=== PATIENT | female | born 1940 | race Caucasian/White ===

== ENCOUNTER → 2016-08-10 | Outpatient (CLI) | payer MEDICARE ==
[2016-08-10 11:24] LABS: Basophils # (A) 0.1 k/uL (0-0.2); Basophils % (A) 1 %; CH 30.8; CHCM 32.8; Eosinophils # (A) 0.3 k/uL (0-0.7); Eosinophils % (A) 4 %; HCT 39.9 % (34.0-46.0); HDW 2.24; HGB 12.6 gm/dL (11.4-16.0); Luc # (Auto) 0.31; Luc % (Auto) 4; Lymphocytes # (A) 2.7 k/uL (1.0-4.8); Lymphocytes % (A) 32 %; MCH 29.7 pg (25.0-35.0); MCHC 31.6 g/dL (31.0-37.0); MCV 94.2 fL (80.0-100.0); Mean Platelet Volume 7.6; Monocytes # (A) 0.7 k/uL (0-1.0); Monocytes % (A) 8 %; Neutrophils # (A) 4.5 k/uL (1.3-7.7); Neutrophils % (A) 53 %; RBC 4.24 m/uL (3.80-5.40); RDW 12.3 % (11.5-15.5); WBC 8.6 k/uL (3.8-10.6); WBC (Perox) 9.25
[2016-08-10 11:52] LABS: ALT 24 U/L (9-52); AST 28 U/L (14-36); Alkaline Phosphatase 87 U/L (38-126); Anion Gap 11 mmol/L; Blood Urea Nitrogen 28 mg/dL (7-17); Calcium 9.7 mg/dL (8.4-10.2); Carbon Dioxide 31 mmol/L (22-30); Chloride 101 mmol/L (98-107); Cholesterol 213 mg/dL (<200); Glucose 108 mg/dL (74-99); HDL Cholesterol 61 mg/dL (40-60); Non-African American GFR(MDRD) 59 (>60 ml/min/1.73 sqM); Sodium 143 mmol/L (137-145); Total Bilirubin 0.7 mg/dL (0.2-1.3); Total Protein 7.3 g/dL (6.3-8.2); Triglycerides 302 mg/dL (<150)
== END ==
LOC: LABWHC1 10:54
PROVIDERS: ATTEND Family Medicine
DX: I10 Essential (primary) hypertension (principal)
CPT/HCPCS: 36415; 80053; 80061; 84439; 84443; 85025

== ENCOUNTER → 2016-08-10 | Outpatient (CLI) | payer MEDICARE ==
--- NOTE | 2016-08-10 11:59 | XR ---
EXAMINATION TYPE: XR ankle complete LT DATE OF EXAM: 08/10/2016 11:55 AM COMPARISON: NONE HISTORY: Pain FINDINGS: Three views of the ankle demonstrate the ankle mortise to be intact and symmetric. The joint spaces are preserved. There is calcific matrix within the distal diaphysis of the tibia likely related to b one infarct. Slight cortical irregularity along the lateral margin of the distal fibula suspicious fo r hairline fracture. Calcaneal spur and diffuse osteopenia noted. IMPRESSION: 1. Findings are suspicious for a subacute fracture hairline distal diaphysis fibula. Correlate clinic ally with point tenderness. Lateral view suggests probable early sclerosis and healing fracture. 2. Bone infarct distal tibia appears chronic. A Yellow message has been communicated to Marshall Canseco DO via the [employer] Reminder system on 08/10/2016 11:56 AM, Message ID [id number].
== END | disposition home or self-care (01) ==
LOC: RADXRMAIN 11:33
PROVIDERS: ATTEND Family Medicine
DX: M87.9 Osteonecrosis, unspecified (principal)

== ENCOUNTER → 2016-08-31 | Outpatient (CLI) | payer MEDICARE ==
--- NOTE | 2016-08-31 13:34 | XR ---
EXAMINATION TYPE: XR chest 2V DATE OF EXAM: 08/31/2016 1:29 PM COMPARISON: 11/01/2010 HISTORY: 76-year-old female circulatory and respiratory symptoms, respiratory crackles. TECHNIQUE: Frontal and lateral views FINDINGS: Heart is normal size. Aorta and pulmonary vasculature within normal limits. Mild diffuse interstitial prominence not significantly changed. Strandy atelectasis in the lower lungs. IMPRESSION: Chronic changes without acute cardiopulmonary process.
== END | disposition home or self-care (01) ==
LOC: RADXRMAIN 13:18
PROVIDERS: ATTEND Family Medicine
DX: R09.89 Other specified symptoms and signs involving the circulatory and respiratory systems (principal)
CPT/HCPCS: 71020

== ENCOUNTER → 2016-09-18 | Outpatient (CLI) | payer MEDICARE ==
--- NOTE | 2016-09-18 15:01 | XR ---
EXAMINATION TYPE: XR ankle complete LT DATE OF EXAM: 09/18/2016 2:40 PM COMPARISON: 08/10/2016 HISTORY: 76-year-old female unspecified fracture of left fibular shaft, follow-up injury TECHNIQUE: 3 views FINDINGS: Redemonstrated fracture site at the distal fibular shaft. There is a prominent periosteal callus seen laterally and to a lesser degree posteriorly. The fracture lucency itself is no longer well seen but healing appears incomplete at this time. Ankle mortise appears congruent. Talar dome is intact. The heterogeneous lesion within the distal tibial intramedullary space spans 3.9 cm, similar to prior . No apparent endosteal scalloping. IMPRESSION: 1. Progressive healing of the nondisplaced distal fibular shaft fracture. There is prominent perioste al and endosteal callus but healing remains incomplete, possibly secondary to continued motion at the fracture site. Clinically correlate. 2. Lesion within the intramedullary space of the distal tibial shaft could represent a bone infarct o r chondroid lesion such as enchondroma.
== END | disposition home or self-care (01) ==
LOC: RADXRMAIN 14:11
PROVIDERS: ATTEND Family Medicine
DX: S82.402D Unspecified fracture of shaft of left fibula, subsequent encounter for closed fracture with routine healing (principal); M89.9 Disorder of bone, unspecified; X58.XXXD Exposure to other specified factors, subsequent encounter

== ENCOUNTER 2016-09-19 10:47 | Day surgery (SDC) | payer MEDICARE ==
[2016-09-17 16:56] VITALS: BMI 27.6
[~2016-09-19 10:47] MED LIST: ALPRAZolam 0.25 MG TAB PO PRN; ALPRAZolam 0.5 MG TAB PO PRN; NITROGLYCERIN SL TABS 0.4 MG TAB SUBLINGUAL PRN; SODIUM CHLORIDE 0.9% 1,000 ML in EMPTY BAG 1 BAG IV ONE
[2016-09-19] MEDS ORDERED: ASPIRIN 325 MG TAB ONE (11:07)
[2016-09-19 11:19] VITALS: RESP 16; TEMP 97.6
[2016-09-19 11:26] LABS: Basophils # (A) 0.1 k/uL (0-0.2); Basophils % (A) 1 %; CH 30.8; CHCM 33.1; Eosinophils # (A) 0.6 k/uL (0-0.7); Eosinophils % (A) 5 %; HCT 40.1 % (34.0-46.0); HDW 2.37; Luc # (Auto) 0.38; Luc % (Auto) 3; Lymphocytes # (A) 2.8 k/uL (1.0-4.8); Lymphocytes % (A) 24 %; MCH 30.3 pg (25.0-35.0); MCHC 32.4 g/dL (31.0-37.0); MCV 93.4 fL (80.0-100.0); Mean Platelet Volume 7.3; Monocytes # (A) 0.9 k/uL (0-1.0); Monocytes % (A) 8 %; Neutrophils # (A) 6.7 k/uL (1.3-7.7); Neutrophils % (A) 60 %; RDW 12.1 % (11.5-15.5); WBC 11.3 k/uL (3.8-10.6); WBC (Perox) 11.46
[2016-09-19 11:42] LABS: Anion Gap 9 mmol/L; Blood Urea Nitrogen 23 mg/dL (7-17); Calcium 9.4 mg/dL (8.4-10.2); Carbon Dioxide 30 mmol/L (22-30); Chloride 101 mmol/L (98-107); Glucose 104 mg/dL (74-99); Non-African American GFR(MDRD) >60 (>60 ml/min/1.73 sqM); Sodium 140 mmol/L (137-145)
[2016-09-19 11:43] LABS: Potassium 4.4 mmol/L (3.5-5.1)
[2016-09-19] MEDS ORDERED: fentaNYL (PF) 50 MCG/ML 2 ML AMP ONE (11:52)
[2016-09-19] MEDS ORDERED: diphenhydrAMINE 50 MG/ML 1 ML VIAL ONE (11:52)
[2016-09-19] MEDS ORDERED: LIDOCAINE 2% INJ 20 MG/ML (20 ML MDV) ONE (11:52)
[2016-09-19] MEDS ORDERED: HEPARIN SODIUM 1,000 UNIT/ML VIAL ONE (11:53)
[2016-09-19] MEDS ORDERED: VERAPAMIL 2.5 MG/ML 2 ML AMP ONE (11:53)
[2016-09-19] MEDS ORDERED: diphenhydrAMINE 50 MG/ML 1 ML VIAL IVP ONE (12:39)
[2016-09-19] MEDS ORDERED: fentaNYL (PF) 50 MCG/ML 2 ML AMP IV ONE (12:39)
[2016-09-19] MEDS ORDERED: MIDAZOLAM 2 MG/2 ML VIAL ONE (12:45)
[2016-09-19] MEDS ORDERED: MIDAZOLAM 2 MG/2 ML VIAL IV ONE (12:47)
[2016-09-19] MEDS ORDERED: LIDOCAINE 2% INJ 20 MG/ML SQ ONE (12:47)
[2016-09-19] MEDS ORDERED: VERAPAMIL SYRINGE (5 MG/10 ML) INTRAARTER ONE ×2 (12:48→12:58)
[2016-09-19] MEDS ORDERED: IOHEXOL 350 MG/ML 125ML BOTTLE INJ ONE (13:03)
[2016-09-19] MEDS ORDERED: RX INFO: IV CONTRAST WAS GIVEN 1 EACH MISC MISCELLANE PRN (13:15)
[2016-09-19] MEDS ORDERED: SODIUM CHLORIDE 0.9% 1,000 ML IV SCH (13:15)
[2016-09-19] MEDS ORDERED: ACETAMINOPHEN TAB 500 MG TAB PO PRN (13:18)
[2016-09-19 16:24] VITALS: BP 111/55; PULSE 62
[2016-09-19] MEDS ORDERED: NON-FORMULARY DRUG (Atenolol/Chlorthalidone [Atenolol-Chlorthalidone 50-25] 1 TAB) PO SCH (17:00)
[2016-09-19] MEDS ORDERED: EZETIMIBE 10 MG TAB PO SCH (17:00)
--- NOTE | 2016-09-19 22:46 | CC ---
Mrs. Choi is a 76-year-old female with a known history of hypertension, hyperlipidemia, history of peripheral vascular disease, who has been scheduled to undergo right total knee arthroplasty, was found to have an abnormal stress test with apical ischemia. In view of that, recommendation was made regarding cardiac catheterization. The procedure as well as risks and complications were discussed with the patient, who is in full understanding agreement. PROCEDURE: Patient was brought to the cath in fasting semi-sedated state after receiving fentanyl and Benadryl and achieving moderate conscious sedated state. Using Xylocaine anesthesia and Seldinger technique, a 6 Ghanaian sheath was introduced in the right radial artery. Selective right and left coronary angiography performed using 5 Ghanaian 3-1/2 Bend right and left Ellie catheters. Multiple views taken of the coronary arteries, including hemiaxial views, were obtained. Following that, a 5 Ghanaian tight pigtail catheter was used in the left ventricle and a 30-degree STARKS view of the left ventricle was obtained from that. Catheter and sheaths were removed. Hemostasis was obtained with deployment of TR band. There were no immediate complications. Patient was returned to her room in stable condition. Of note, the patient received 3500 units of intravenous heparin as well as intra-arterial verapamil. FINDINGS: 1. Fluoroscopy: There is severe calcification involving all the coronary arteries. 2. Coronaries. a. Left main: This is a large-size vessel bifurcating into left circumflex, left anterior descending artery, left main coronary artery, is without any obstructive coronary artery disease. b. Left anterior descending artery. This is a large-size vessel reaching toward the apex with a wraparound apex segment, giving rise to a moderately size diagonal branch in mid segment. The left anterior descending artery in mid segment has intimal disease of 30% without any evidence of high-grade stenosis. c. Left circumflex: This is a nondominant vessel, large in caliber, giving rise to a large obtuse marginal branch. The left circumflex has mild intimal disease proximally of 10% to 20% without any evidence of high-grade stenosis. d. Right coronary artery: This is a dominant vessel, giving rise distally to a large PLV and a small PDA. The right coronary artery is heavily calcified and the mid segment has a plaque of 40% to 50%. The rest of the vessel has no has stenosis. 3. Left ventriculogram: Left ventriculogram was performed in 30-degree STARKS view and revealed normal left ventricular size and systolic function. Ejection fraction was 60%. CONCLUSION: 1. Calcified coronary arteries. 2. Mild to moderate triple vessel disease. 3. Normal left ventricular size and systolic function. RECOMMENDATIONS: In view of findings and anatomy, I have recommended continued medical therapy with aggressive risk factor modification, which has been initiated. Those findings and recommendations were discussed with the patient and her family and they are in full understanding and agreement. Duration of the procedure is 25 minutes. GRIFFIND
--- NOTE | 2016-09-19 22:48 | LTR ---
September 19, 2016 RE: Ileana Choi Dear Dr. Canseco: I had the pleasure to perform cardiac catheterization on Mrs. Choi at [facility] on the 19 of September and a full copy of the procedure note will be forwarded to you. In brief, she was found to have calcified coronary arteries with mild to moderate triple vessel coronary artery disease and based on those findings, I have recommended continued medical therapy with aggressive risk factor modification initiated. Thank you again for allowing me to participate in her care. Please feel free to call for any questions. Sincerely yours, JESSICA PAVON MD
[2016-09-20] MEDS ORDERED: NON-FORMULARY DRUG (Omeprazole 20 MG) PO SCH (09:00)
[2016-09-20] MEDS ORDERED: NIACIN 500 MG PO SCH (09:00)
[2016-09-20] MEDS ORDERED: ASPIRIN 81 MG CHEW PO SCH (09:00)
[2016-09-20] MEDS ORDERED: POTASSIUM CHLORIDE ER 10 MEQ TAB.ER.PRT PO SCH (09:00)
== END 2016-09-19 18:25 | disposition home or self-care (01) ==
LOC: CATHCVL 10:47
PROVIDERS: ATTEND Internal Medicine Interventional Cardiology
DX: I25.10 Atherosclerotic heart disease of native coronary artery without angina pectoris (principal); I25.84 Coronary atherosclerosis due to calcified coronary lesion; Z01.810 Encounter for preprocedural cardiovascular examination; I10 Essential (primary) hypertension; E78.5 Hyperlipidemia, unspecified; Z98.890 Other specified postprocedural states; Z79.82 Long term (current) use of aspirin; Z79.899 Other long term (current) drug therapy; Z88.8 Allergy status to other drugs, medicaments and biological substances
CPT/HCPCS: 93458; 80048; 85025; C1894; C1769; J2001; J2250; J1200; J3010; J1644; Q9967

== ENCOUNTER → 2017-01-25 | Outpatient (CLI) | payer MEDICARE ==
[2017-01-25 10:14] LABS: ALT 33 U/L (9-52); AST 28 U/L (14-36); Cholesterol 167 mg/dL (<200); HDL Cholesterol 57 mg/dL (40-60)
== END | disposition home or self-care (01) ==
LOC: LABWHC1 09:23
PROVIDERS: ATTEND Internal Medicine Interventional Cardiology
DX: E78.2 Mixed hyperlipidemia (principal)
CPT/HCPCS: 36415; 80061; 84450; 84460

== ENCOUNTER → 2017-02-11 | Outpatient (CLI) | payer MEDICARE ==
--- NOTE | 2017-02-12 08:55 | MM ---
Reason for exam: screening (asymptomatic). Last mammogram was performed 1 year ago. History: Patient is postmenopausal. Family history of breast cancer in sister at age 45. Took estrogen for 10 years. Took progesterone for 10 years. Physical Findings: A clinical breast exam by your physician is recommended on an annual basis and results should be correlated with mammographic findings. MG 3D Screening Mammo W/Cad Bilateral CC and MLO view(s) were taken. Prior study comparison: February 10, 2016, bilateral MG 3d screening mammo w/cad. September 16, 2014, bilateral MG screening mammo w CAD. There are scattered fibroglandular densities. Finding #1: There is a 6 mm mass in the left breast. Finding #2: There are typically benign calcifications in both breasts. ASSESSMENT: Incomplete: need additional imaging evaluation, BI-RAD 0 RECOMMENDATION: Special view mammogram of the left breast. If lesion persists on supplemental views, image directed ultrasound is recommended. [facility] will attempt to contact patient to return for supplemental views and ultrasound if indicated.
== END | disposition home or self-care (01) ==
LOC: RADMAMWWP 11:01
PROVIDERS: ATTEND Family Medicine
DX: Z12.31 Encounter for screening mammogram for malignant neoplasm of breast (principal)
CPT/HCPCS: 77063; G0202

== ENCOUNTER → 2017-02-21 | Outpatient (CLI) | payer MEDICARE ==
--- NOTE | 2017-02-21 09:58 | MM ---
Reason for exam: additional evaluation requested from abnormal screening. Last mammogram was performed less than 1 month ago. History: Patient is postmenopausal and history of other cancer. Family history of breast cancer in sister at age 45. Took estrogen for 10 years. Took progesterone for 10 years. Physical Findings: Nurse did not find any significant physical abnormalities on exam. MG 3D Work Up W/Cad LT LM and spot compression MLO view(s) were taken of the left breast. Prior study comparison: February 11, 2017, bilateral MG 3d screening mammo w/cad. February 10, 2016, bilateral MG 3d screening mammo w/cad. Nodular density does not persists. 6 month follow up recommended. These results were verbally communicated with the patient and result sheet given to the patient on 02/21/17. ASSESSMENT: Probably benign, BI-RAD 3 RECOMMENDATION: Follow-up diagnostic mammogram of the left breast in 6 months.
== END | disposition home or self-care (01) ==
LOC: RADMAMWWP 08:46
PROVIDERS: ATTEND Family Medicine
DX: R92.8 Other abnormal and inconclusive findings on diagnostic imaging of breast (principal)
CPT/HCPCS: G0206; G0279

== ENCOUNTER → 2017-07-31 | Outpatient (CLI) | payer MEDICARE ==
[2017-07-31 11:18] LABS: Uric Acid 3.1 mg/dL (3.7-7.4)
== END | disposition home or self-care (01) ==
LOC: LABWHC1 10:18
PROVIDERS: ATTEND Internal Medicine Cardiovascular Disease
DX: E78.2 Mixed hyperlipidemia (principal); I10 Essential (primary) hypertension; E79.0 Hyperuricemia without signs of inflammatory arthritis and tophaceous disease
CPT/HCPCS: 36415; 80051; 80061; 82565; 84450; 84460; 84520; 84550; 85384; 86141

== ENCOUNTER → 2017-08-13 | Outpatient (CLI) | payer MEDICARE ==
--- NOTE | 2017-08-13 13:20 | MM ---
Reason for exam: follow-up at short interval from prior study. Last mammogram was performed 6 months ago. History: Patient is postmenopausal and history of other cancer. Family history of breast cancer in sister at age 45. Took estrogen for 20 years. Took progesterone for 20 years. Physical Findings: Nurse did not find any significant physical abnormalities on exam. MG 3D Diag Mammo W/Cad LT CC and MLO view(s) were taken of the left breast. Prior study comparison: February 21, 2017, left breast MG 3d work up w/cad LT. February 11, 2017, bilateral MG 3d screening mammo w/cad. The breast tissue is heterogeneously dense. This may lower the sensitivity of mammography. No suspicious abnormality. The previously seen inferior asymmetry is no longer visualized and may represent a resolved cyst or overlaping fibroglandular tissue on priors. These results were verbally communicated with the patient and result sheet given to the patient on 08/13/17. ASSESSMENT: Benign, BI-RAD 2 RECOMMENDATION: Return to routine screening mammogram schedule for both breasts. Back on schedule for February 2018.
== END | disposition home or self-care (01) ==
LOC: RADMAMWWP 12:30
PROVIDERS: ATTEND Family Medicine
DX: R92.8 Other abnormal and inconclusive findings on diagnostic imaging of breast (principal)
CPT/HCPCS: 77065; G0279

== ENCOUNTER → 2017-08-26 | Outpatient (CLI) | payer MEDICARE ==
--- NOTE | 2017-08-26 12:00 | XR ---
EXAMINATION TYPE: XR ankle complete LT DATE OF EXAM: 08/26/2017 COMPARISON: 09/18/2016 HISTORY: 77 year-old female left ankle pain, twisting injury one year ago TECHNIQUE: 3 views FINDINGS: Interval healing of the patient's distal fibular fracture. Some mature periosteal callus is present. Small plantar calcaneal spur. There is some sagging of the midfoot longitudinal arch. Redemonstrated chondroid lesion measuring 3.9 cm long by 9 mm wide by 7 mm AP within the intramedullary space of the distal tibial shaft. No periostitis or osteolysis. Ankle mortise remains congruent. There is a smal l bony spur along the medial aspect of the medial malleolus. IMPRESSION: 1. Interval healing of the patient's distal fibular fracture seen on 09/18/2016. 2. A small bony spur off the medial malleolus can be seen in the setting of posterior tibial tendon d ysfunction. Clinically correlate. 3. Overall stable appearance to the chondroid lesion within the intramedullary space of the distal ti jose, likely enchondroma. 4. Small plantar calcaneal spur.
== END | disposition home or self-care (01) ==
LOC: RADXRMAIN 11:00
PROVIDERS: ATTEND Family Medicine
DX: S82.832D Other fracture of upper and lower end of left fibula, subsequent encounter for closed fracture with routine healing (principal); M77.32 Calcaneal spur, left foot; M89.8X7 Other specified disorders of bone, ankle and foot

== ENCOUNTER → 2018-01-15 | Outpatient (CLI) | payer MEDICARE ==
[2018-01-15 09:00] LABS: Potassium 4.7 mmol/L (3.5-5.1); Uric Acid 3.8 mg/dL (3.7-7.4)
== END | disposition home or self-care (01) ==
LOC: LABWHC1 07:18
PROVIDERS: ATTEND Internal Medicine Cardiovascular Disease
DX: E78.2 Mixed hyperlipidemia (principal); I10 Essential (primary) hypertension; I73.9 Peripheral vascular disease, unspecified; E79.0 Hyperuricemia without signs of inflammatory arthritis and tophaceous disease
CPT/HCPCS: 36415; 80051; 80061; 82565; 84450; 84460; 84520; 84550; 85384; 86141

== ENCOUNTER → 2018-07-24 | Outpatient (CLI) | payer MEDICARE ==
[2018-07-24 18:09] LABS: LDL Cholesterol,Calculated 69.8 mg/dL (0.0-131.0); Uric Acid 3.6 mg/dL (2.9-7.7); VLDL Calculation 32.2 mg/dL (5.00-40.00)
[2018-07-24 18:10] LABS: Vitamin D 25 Hydroxy 50.6 ng/mL (30.0-100.0)
[2018-07-24 18:17] LABS: C Reactive Protein, High Sens 12.97 mg/L (0.000-3.000)
== END | disposition home or self-care (01) ==
LOC: LABWHC1 14:02
PROVIDERS: ATTEND Internal Medicine Cardiovascular Disease
DX: I25.10 Atherosclerotic heart disease of native coronary artery without angina pectoris (principal); E55.9 Vitamin D deficiency, unspecified; E79.0 Hyperuricemia without signs of inflammatory arthritis and tophaceous disease; E78.2 Mixed hyperlipidemia
CPT/HCPCS: 36415; 80061; 82306; 84450; 84460; 84550; 85384; 86141

== ENCOUNTER → 2019-10-28 | Outpatient (CLI) | payer MEDICARE ==
--- NOTE | 2019-11-02 08:01 | MM ---
Reason for exam: screening (asymptomatic). Last mammogram was performed 1 year and 3 months ago. History: Patient is postmenopausal and history of other cancer. Family history of breast cancer in sister at age 45. Took estrogen for 20 years. Took progesterone for 20 years. Physical Findings: A clinical breast exam by your physician is recommended on an annual basis and results should be correlated with mammographic findings. MG 3D Screening Mammo W/Cad Bilateral CC and MLO view(s) were taken. Prior study comparison: July 31, 2018, bilateral MG 3d screening mammo w/cad. August 13, 2017, left breast MG 3d diag mammo w/cad LT. February 11, 2017, bilateral MG 3d screening mammo w/cad. February 10, 2016, bilateral MG 3d screening mammo w/cad. The breast tissue is heterogeneously dense. This may lower the sensitivity of mammography. Benign vascular and secretory calcifications. No significant changes when compared with prior studies. ASSESSMENT: Negative, BI-RAD 1 RECOMMENDATION: Routine screening mammogram of both breasts in 1 year.
== END | disposition home or self-care (01) ==
LOC: RADMAMWWP 14:40
PROVIDERS: ATTEND Family Medicine
DX: Z12.31 Encounter for screening mammogram for malignant neoplasm of breast (principal)
CPT/HCPCS: 77063; 77067

== ENCOUNTER → 2020-01-20 | Outpatient (CLI) | payer MEDICARE ==
--- NOTE | 2020-01-20 16:13 | US ---
EXAMINATION TYPE: US kidneys/renal and bladder DATE OF EXAM: 01/20/2020 COMPARISON: None CLINICAL HISTORY: 79-year-old female N18.3 chronic kidney disease. Chronic microscopic hematuria Technique: Multiple sonographic images of the kidneys and bladder are obtained. FINDINGS: EXAM MEASUREMENTS: Right Kidney: 9.0 x 3.8 x 4.2 cm Left Kidney: 8.1 x 3.6 x 4.3 cm No hydronephrosis on either side. Bladder: Only mildly distended limiting evaluation. Bilateral Jets seen IMPRESSION: No hydronephrosis.
== END | disposition home or self-care (01) ==
LOC: RADUSWWP 13:56
PROVIDERS: ATTEND Internal Medicine
DX: N18.3 Chronic kidney disease, stage 3 (moderate) (principal)
CPT/HCPCS: 76770

== ENCOUNTER 2020-02-25 19:29 | Emergency (ER) | payer MEDICARE ==
--- NOTE | 2020-02-25 20:44 | XR ---
EXAMINATION TYPE: XR chest 2V DATE OF EXAM: 02/25/2020 COMPARISON: NONE HISTORY: 08/31/2016 TECHNIQUE: 2 views FINDINGS: There is some linear density at the left lung base. Heart size is normal. There are no delilah r masses. There is osteopenia. There is left shoulder prosthesis. Right lung is clear. IMPRESSION: There is new atelectasis at the left lung base compared to old exam. Normal heart.
--- NOTE | 2020-02-25 20:46 | XR ---
EXAMINATION TYPE: XR shoulder complete LT DATE OF EXAM: 02/25/2020 COMPARISON: NONE HISTORY: Fall. Shoulder pain. TECHNIQUE: 3 views FINDINGS: There is left shoulder prosthesis. Components appear in anatomic position. I see no fractur e nor dislocation. Scapula is intact. IMPRESSION: Shoulder prosthesis. No fracture seen.
--- NOTE | 2020-02-25 21:09 | CT ---
EXAMINATION TYPE: CT facial bones wo con DATE OF EXAM: 02/25/2020 COMPARISON: None HISTORY: Fall injury CT DLP: 1016.1 mGycm Automated exposure control for dose reduction was used. Images were obtained from the bottom of the mandible to the top of the frontal sinuses without contra st. The mandibular ring is intact. Temporomandibular joints are intact. Zygomatic arches appear normal. T here is extensive mucosal thickening in the right maxillary sinus. I see no sign of a blowout fractur e. There is some calcification in the right maxillary sinus. The orbital margins are intact. There is no evidence of retro-orbital mass. The globes are symmetric. Nasal bone is intact. The maxilla is in tact. There is expansion of the mucosal thickening on the right maxillary sinus into the nasopharynx. This could relate to a mucocele. There is mild thickening of the lateral wall right maxillary sinus. IMPRESSION: No acute bony abnormality. Mucosal thickening and mixed attenuation in the right maxillary sinus with some expansion consistent with a mucocele. No facial bone fracture seen.
--- NOTE | 2020-02-25 21:16 | CT ---
EXAMINATION TYPE: CT brain yamileth evans DATE OF EXAM: 02/25/2020 COMPARISON: None HISTORY: Fall injury CT DLP: 1016.1 mGycm Automated exposure control for dose reduction was used. There is cerebral atrophy. There is no mass effect nor midline shift. There is no sign of intracrania l hemorrhage. There is patchy hypodensity in the periventricular white matter and more noticeable karina und the occipital horns of the lateral ventricles. There is 2 x 1 cm cortical infarct medial posterio r left parietal lobe. There is some straightening of the cervical spine. There is anterior subluxation of C4 in relation to C5 almost 5 mm. There is disc space narrowing at C5-6 and C6-7 with spurring. There is multilevel mi ld hypertrophic facet arthropathy. I see no cervical spine fracture. The posterior elements are intac t. IMPRESSION: Cerebral atrophy. Chronic small vessel ischemia with old infarct left posterior temporal lobe and lef t posterior parietal lobe which are new compared to the old CT scan. Moderate spondylotic change in the lower cervical spine. Degenerative first-degree spondylolisthesis at C4-5. No fracture seen.
--- NOTE | 2020-02-25 22:04 | ED ---
General Adult HPI - General Chief complaint: Fall Stated complaint: fall Time Seen by Provider: 02/25/20 19:58 Source: patient, EMS, RN notes reviewed, old records reviewed Mode of arrival: EMS Limitations: no limitations - History of Present Illness Initial comments: 80-year-old female patient presents to ED for fall from standing. Patient was reportedly walking her carotid when she tripped on the lip of a piece of concrete falling forward patient reports that she did hit her face as well as her left shoulder. She is concerned because she did have a total left shoulder replacement done in December. Patient denies any loss of consciousness. Denies use of blood thinners. Denies any other acute complaints. Systemic: Pt denies fatigue, fever/chills, rash. Pt denies weakness, night sweats, weight loss. Neuro: Pt denies headache, visual disturbances, syncope or pre-syncope. HEENT: Pt denies ocular discharge or irritation, otalgia, rhinorrhea, pharyngitis or notable lymphadenopathy. Cardiopulmonary: Pt denies chest pain, SOB, heart palpitations, dyspnea on exertion. Abdominal/GI: Pt denies abdominal pain, n/v/d. : Pt denies dysuria, burning w/ urination, frequency/urgency. Denies new onset urinary or bowel incontinence. Neuro: Pt denies new onset weakness, paresthesias. - Related Data Home Medications Medication Instructions Recorded Confirmed Aspirin 81 mg PO DAILY 08/29/15 02/25/20 Atenolol/Chlorthalidone 1 tab PO DAILY 08/29/15 02/25/20 [Atenolol-Chlorthalidone 50-25] Cholecalciferol [Vitamin D3] 5,000 unit PO DAILY 08/29/15 02/25/20 Ezetimibe [Zetia] 10 mg PO DAILY 08/29/15 02/25/20 Multivitamins, Thera [Multivitamin] 1 tab PO DAILY 08/29/15 02/25/20 Niacin [Niacin ER] 500 mg PO DAILY 08/29/15 02/25/20 Temazepam [Restoril] 15 mg PO HS PRN 08/29/15 02/25/20 Vitamin E 400 unit PO DAILY 08/29/15 02/25/20 Acetaminophen Tab [Tylenol Tab] 1,000 mg PO Q6HR PRN 09/17/16 02/25/20 Berberine Hcl 250 mg PO DAILY 09/17/16 02/25/20 Allopurinol [Zyloprim] 300 mg PO DAILY 02/25/20 02/25/20 Allergies Allergy/AdvReac Type Severity Reaction Status Date / Time enoxaparin sodium Allergy Nausea & Verified 02/25/20 21:21 [From Lovenox] Vomiting & Diarrhea,muscle aches and pains methocarbamol [From Robaxin] Allergy Unknown Verified 02/25/20 21:21 warfarin sodium Allergy Nausea & Verified 02/25/20 21:21 [From Coumadin] Vomiting & Diarrhea,dehydration [id number] Reductase AdvReac Severe MUSCLE Verified 02/25/20 21:21 Inhibitor SPASMS IN LEGS meloxicam [From Mobic] AdvReac ELEV LIVER Verified 02/25/20 21:21 ENZYMES (AVOIDS "ARTHRITIC" RX) Review of Systems ROS Statement: Those systems with pertinent positive or pertinent negative responses have been documented in the HPI. ROS Other: All systems not noted in ROS Statement are negative. 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 Hx Collapse Lung r/t Whooping Cough as a child, AND FREQ PNEUMONIA. HX SKIN CA NOSE. MARIA L EAR TINNITUS. MINOR VARICOSE VEIN. RECENT ABN STRESS TEST (FOR PRE-OP CLEARANCE). HAIRLINE FX LT LATERAL ANKLE, WEARING BOOT SINCE 07/2016. History of Any Multi-Drug Resistant Organisms: None Reported Past Surgical History: Section, Cholecystectomy, Ear Surgery, Heart Catheterization, Hysterectomy, Joint Replacement Additional Past Surgical History / Comment(s): TOTAL Lt Knee, LT HIP Replacement. Lt Carotid ENDARTERECTOMY. CARDIAC CATH X2. BRONCHOSCOPY YEARS AGO. BMT. Colonscopies. left shoulder surgery Past Anesthesia/Blood Transfusion Reactions: No Reported Reaction Past Psychological History: No Psychological Hx Reported Smoking Status: Never smoker Past Alcohol Use History: Occasional Past Drug Use History: None Reported - Past Family History Father Family Medical History: Liver Disease Mother Family Medical History: CVA/TIA Brother(s) Family Medical History: Cancer, Deep Vein Thrombosis (DVT) Additional Family Medical History / Comment(s): 1/2 BROTHER Sister(s) Family Medical History: Cancer Additional Family Medical History / Comment(s): X2 SISTERS General Exam - General Exam Comments Initial Comments: Constitutional: NAD, AOX3, Pt has pleasant affect. HEENT: NC/AT, trachea midline, neck supple, no lymphadenopathy. Posterior pharynx non erythematous, without exudates. External ears appear normal, without discharge. Mucous membranes moist. Eyes PERRLA, EOM intact. There is no scleral icterus. No pallor noted. Cardiopulmonary: RRR, no murmurs, rubs or gallops, no JVD noted. Lungs CTAB in anterior and posterior gann. No peripheral edema. Abdominal exam: Abdomen soft and non-distended. Abdomen non-tender to palpation in all 4 quadrants. Bowel sounds active in LLQ. No hepatosplenomegaly. No ecchymosis Neuro: CN II-XII intact. No nuchal rigidity. No raccon eyes, no ramos sign, no hemotympanum. No cervical spinal tenderness. No thoracic or lumbar tenderness. No ecchymoses. MSK: No posterior calf tenderness bilaterally, homans sign negative bilaterally. Posterior tibialis and radial pulse +2 bilaterally. Sensation intact in upper and lower extremities. Mild tenderness to the left anterior shoulder with decreased range of motion secondary to pain. Otherwise no tenderness in upper or lower extremities and full active range of motion. Limitations: no limitations Course Vital Signs 02/25/20 19:49 Temperature 98 F Pulse Rate 76 Respiratory 18 Rate Blood Pressure 157/83 O2 Sat by Pulse 96 Oximetry Medical Decision Making - Medical Decision Making 80-year-old female patient presents to ED for fall from standing. Patient was reportedly walking her carotid when she tripped on the lip of a piece of concrete falling forward patient reports that she did hit her face as well as her left shoulder. She is concerned because she did have a total left shoulder replacement done in December. Patient denies any loss of consciousness. Denies use of blood thinners. Denies any other acute complaints. Patient vital signs are stable, afebrile. Physical exam displayed mild tenderness to the left anterior shoulder. Neurologic exam is intact. Brain C-spine display cerebral atrophy, old infarcts, degenerative first-degree spondylolisthesis at C4-C5. Patient previously aware of these findings. CT facial bones displayed no acute bony abnormality. Shoulder x-ray displayed shoulder prosthesis which appeared to be within anatomic position. This x-ray displayed atelectasis left lung base. Normal heart. Patient will be discharged to follow up with primary care provider and orthopedic consult and return to ER if any worsening symptoms. Case discussed with Dr. Clark. Disposition Clinical Impression: Fall, Shoulder pain Disposition: HOME SELF-CARE Condition: Stable Instructions (If sedation given, give patient instructions): Shoulder Sprain (ED) Additional Instructions: Follow up with primary care provider tomorrow. Follow-up with orthopedic consult tomorrow. Return to ER if any worsening symptoms. Is patient prescribed a controlled substance at d/c from ED?: No Referrals: Marshall Canseco DO [Primary Care Provider] - 1-2 days
[2020-02-25] MEDS ORDERED: ACETAMINOPHEN TAB 325 MG TAB PO STA (22:06)
[2020-02-25 22:19] VITALS: BP 168/81; PULSE 69; RESP 16; TEMP 98.1
== END 2020-02-25 22:23 | disposition home or self-care (01) ==
LOC: EC 19:29
DX: M25.512 Pain in left shoulder (principal); G31.9 Degenerative disease of nervous system, unspecified; I20.9 Angina pectoris, unspecified; K21.9 Gastro-esophageal reflux disease without esophagitis; E78.5 Hyperlipidemia, unspecified; I10 Essential (primary) hypertension; M19.90 Unspecified osteoarthritis, unspecified site; Z79.82 Long term (current) use of aspirin; Z79.899 Other long term (current) drug therapy; Z85.9 Personal history of malignant neoplasm, unspecified; Z96.612 Presence of left artificial shoulder joint; Z95.5 Presence of coronary angioplasty implant and graft; Z90.710 Acquired absence of both cervix and uterus; Z96.652 Presence of left artificial knee joint; Z96.642 Presence of left artificial hip joint; Z85.828 Personal history of other malignant neoplasm of skin; Z86.73 Personal history of transient ischemic attack (TIA), and cerebral infarction without residual deficits; W01.198A Fall on same level from slipping, tripping and stumbling with subsequent striking against other object, initial encounter; Y93.01 Activity, walking, marching and hiking; Y92.009 Unspecified place in unspecified non-institutional (private) residence as the place of occurrence of the external cause; Z88.8 Allergy status to other drugs, medicaments and biological substances
CPT/HCPCS: 70450; 70486; 71046; 72125; 99284

== ENCOUNTER → 2020-08-04 | Outpatient (CLI) | payer MEDICARE ==
--- NOTE | 2020-08-04 12:41 | XR ---
EXAMINATION TYPE: XR Hip RT and AP Pelvis DATE OF EXAM: 08/04/2020 CLINICAL HISTORY: pain TECHNIQUE: Single view the pelvis is submitted. 2 views of the right hip are also provided for interp retation. FINDINGS: No evidence for fracture, dislocation or bony lesion. Right hip joint space is moderately narrowed. Greater trochanteric spurring identified. SI joints appear symmetric. IMPRESSION: 1. No acute fracture or dislocation seen. ICD 10 NO FRACTURE, INITIAL EVALUATION
== END | disposition home or self-care (01) ==
LOC: RADXRMAIN 11:16
PROVIDERS: ATTEND Family Medicine
DX: M25.551 Pain in right hip (principal)
CPT/HCPCS: 73502

== ENCOUNTER → 2021-01-10 | Outpatient (CLI) | payer MEDICARE ==
--- NOTE | 2021-01-10 16:07 | US ---
EXAMINATION TYPE: US pelvis complete transvag DATE OF EXAM: 01/10/2021 COMPARISON: CT CLINICAL HISTORY: N93.9 Abnormal uterine and vaginal bleeding. Abnormal vaginal bleeding. Hx multiple D and C, 2 C-Sections, 1 miscarriage, hx of hormone replacement therapy. A1. TECHNIQUE: Transvaginal (TV) and Transabdominal (TA) . Transabdominal sonographic images of the pel vis were acquired. Transvaginal sonographic images were medically necessary to better assess the fol lowing anatomy: Ovaries, endometrium. Date of LMP: Unknown per patient. EXAM MEASUREMENTS: Uterus: 7.0 x 3.8 x 3.2 cm Endometrial Stripe: 0.34 cm Right Ovary: Not visualized. Left Ovary: Not visualized. 1. Uterus: Anteverted Appears very heterogeneous. Complex area seen mid: 0.7 x 0.4 x 0.4 cm. 2. Endometrium: Limited visibility, measured at 0.46 cm. 3. Right Ovary: Not visualized. 4. Left Ovary: Not visualized. 5. Bilateral Adnexa: Appear wnl. 6. Posterior cul-de-sac: Appears wnl. IMPRESSION: 1. Heterogenous uterus. A small fibroid may be present. 2. Ovaries are not identified during this exam.
== END | disposition home or self-care (01) ==
LOC: RADUSWWP 14:36
PROVIDERS: ATTEND Family Medicine
DX: N93.9 Abnormal uterine and vaginal bleeding, unspecified (principal)
CPT/HCPCS: 76830; 76856

== ENCOUNTER → 2021-03-13 | Outpatient (CLI) | payer MEDICARE | END | disposition home or self-care (01) | LOC: LABWHC1 11:40 | PROVIDERS: ATTEND Family Medicine | DX: U07.1 COVID-19 (principal) | CPT/HCPCS: U0003; C9803 ==

== ENCOUNTER 2021-10-17 14:02 | Emergency (ER) | payer MEDICARE ==
[2021-10-17 14:34] VITALS: BP 141/78; PULSE 87; RESP 20; TEMP 97.9
[2021-10-17] MEDS ORDERED: KETOROLAC 15 MG/ML 1 ML VIAL IM STA (15:18)
[2021-10-17] MEDS ORDERED: ORPHENADRINE 30 MG/ML 2 ML VIAL IM STA (15:20)
--- NOTE | 2021-10-17 16:00 | ED ---
Back Pain HPI - General Chief Complaint: Back Pain/Injury Stated Complaint: Fall-Back pain Time Seen by Provider: 10/17/21 14:57 Source: patient Limitations: no limitations - History of Present Illness Initial Comments: Patient is an 81-year-old female who presents to the emergency department with a chief complaint of back pain. Patient fell on her bottom 10 days ago while ashlyn ening onto grass. She initially did not have any pain from the fall including back pain. Patient states she went to stand up yesterday when she experienced middle/lower back pain, bilateral. Denies pain, numbness, and tingling in the leg/groin. Denies loss of bladder and bowel function. Denies history of cancer. Patient states that rotating her back makes the pain worse. States she took Tylenol at 7 AM this morning with no relief. Patient denies fever, chills,, shortness of breath, cough, chest pain, abdominal pain, nausea, vomiting, diarrhea, burning with urination, blood in the urine, and other concerns. - Related Data Home Medications Medication Instructions Recorded Confirmed Aspirin 81 mg PO DAILY 08/29/15 02/25/20 Atenolol/Chlorthalidone 1 tab PO DAILY 08/29/15 02/25/20 [Atenolol/Chlorthalidone 50-25] Cholecalciferol [Vitamin D3] 5,000 unit PO DAILY 08/29/15 02/25/20 Ezetimibe [Zetia] 10 mg PO DAILY 08/29/15 02/25/20 Multivitamins, Thera [Multivitamin] 1 tab PO DAILY 08/29/15 02/25/20 Niacin [Niacin ER] 500 mg PO DAILY 08/29/15 02/25/20 Temazepam [Restoril] 15 mg PO HS PRN 08/29/15 02/25/20 Vitamin E 400 unit PO DAILY 08/29/15 02/25/20 Acetaminophen Tab [Tylenol Tab] 1,000 mg PO Q6HR PRN 09/17/16 02/25/20 Berberine Hcl 250 mg PO DAILY 09/17/16 02/25/20 Allopurinol [Zyloprim] 300 mg PO DAILY 02/25/20 02/25/20 Previous Rx's Medication Instructions Recorded Cyclobenzaprine [Flexeril] 5 mg PO BID PRN #10 tablet 10/17/21 Allergies Allergy/AdvReac Type Severity Reaction Status Date / Time enoxaparin sodium Allergy Nausea & Verified 10/17/21 14:34 [From Lovenox] Vomiting & Diarrhea,muscle aches and pains methocarbamol [From Robaxin] Allergy Unknown Verified 10/17/21 14:34 warfarin sodium Allergy Nausea & Verified 10/17/21 14:34 [From Coumadin] Vomiting & Diarrhea,dehydration Sandtgb-GKO-[id number] Reductase AdvReac Severe MUSCLE Verified 10/17/21 14:34 Inhibitor SPASMS IN [Iswxqqd-Ivo-Aow Reductase LEGS Inhibitor] meloxicam [From Mobic] AdvReac ELEV LIVER Verified 10/17/21 14:34 ENZYMES (AVOIDS "ARTHRITIC" RX) Review of Systems ROS Statement: Those systems with pertinent positive or pertinent negative responses have been documented in the HPI. ROS Other: All systems not noted in ROS Statement are negative. 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 Hx Collapse Lung r/t Whooping Cough as a child, AND FREQ PNEUMONIA. HX SKIN CA NOSE. MARIA L EAR TINNITUS. MINOR VARICOSE VEIN. RECENT ABN STRESS TEST (FOR PRE-OP CLEARANCE). HAIRLINE FX LT LATERAL ANKLE, WEARING BOOT SINCE 07/2016. History of Any Multi-Drug Resistant Organisms: None Reported Past Surgical History: Section, Cholecystectomy, Ear Surgery, Heart Catheterization, Hysterectomy, Joint Replacement Additional Past Surgical History / Comment(s): TOTAL Lt Knee, LT HIP Replacement. Lt Carotid ENDARTERECTOMY. CARDIAC CATH X2. BRONCHOSCOPY YEARS AGO. BMT. Colonscopies. left shoulder surgery Past Anesthesia/Blood Transfusion Reactions: No Reported Reaction Past Psychological History: No Psychological Hx Reported Smoking Status: Never smoker Past Alcohol Use History: Occasional Past Drug Use History: None Reported - Past Family History Father Family Medical History: Liver Disease Mother Family Medical History: CVA/TIA Brother(s) Family Medical History: Cancer, Deep Vein Thrombosis (DVT) Additional Family Medical History / Comment(s): 1/2 BROTHER Sister(s) Family Medical History: Cancer Additional Family Medical History / Comment(s): X2 SISTERS General Exam Limitations: no limitations General appearance: alert, in no apparent distress Head exam: Present: atraumatic, normocephalic, normal inspection Eye exam: Present: normal appearance, PERRL, EOMI. Absent: scleral icterus, conjunctival injection, periorbital swelling Neck exam: Present: normal inspection, full ROM Respiratory exam: Present: normal lung sounds bilaterally. Absent: respiratory distress, wheezes, rales, rhonchi, stridor Cardiovascular Exam: Present: regular rate, normal rhythm, normal heart sounds. Absent: systolic murmur, diastolic murmur, rubs, gallop, clicks GI/Abdominal exam: Present: soft, normal bowel sounds. Absent: distended, tenderness, guarding, rebound, rigid Back exam: Present: normal inspection, full ROM, paraspinal tenderness (thoracic and lumbar, bilateral ). Absent: CVA tenderness (R), CVA tenderness (L), vertebral tenderness Neurological exam: Present: alert, oriented X3, CN II-XII intact Psychiatric exam: Present: normal affect, normal mood Skin exam: Present: warm, dry, intact, normal color. Absent: rash Course Vital Signs 10/17/21 14:29 Temperature 97.9 F Pulse Rate 87 Respiratory 20 Rate Blood Pressure 141/78 O2 Sat by Pulse 95 Oximetry Medical Decision Making - Medical Decision Making This is an 81-year-old female who presents with middle and lower back pain potentially from a fall. Thorough history and examination were performed. Patient is well-appearing. No red flag symptoms. This appears to be musculoskeletal back pain as patient is very tender in the paravertebral muscles of the bilateral thoracic and lumbar region. Pain reproduced with rotation of the back. Because patient fell I will obtain imaging. I will treat her symptoms. Thoracic and lumbar x-ray are negative for acute process. Patient given Toradol and small dose of Norflex. On reevaluation patient states her pain is very improved. Patient and discuss musculoskeletal back pain. She will be discharged with instruction To take anti-inflammatories for her pain. I'll also discharge her with small dose flexeril. She is instructed to call the primary care provider in one to 2 days. Return parameters discussed. Patient verbalizes understanding and is agreeable to this plan. Dr. Gallagher my attending. Disposition Clinical Impression: Mechanical back pain Disposition: HOME SELF-CARE Condition: Good Instructions (If sedation given, give patient instructions): Acute Low Back Pain (ED) Additional Instructions: Please take Flexeril as prescribed. Do not drink alcohol or operate machinery while taking Flexeril as it can make you sleepy. You may also benefit from an anti-inflammatory such as Motrin or Aleve for pain. Follow with primary care provider in one to 2 days. Return to the emergency department if you experience new, concerning, or worsening symptoms Prescriptions: Cyclobenzaprine [Flexeril] 5 mg PO BID PRN #10 tablet PRN Reason: Muscle Spasm Is patient prescribed a controlled substance at d/c from ED?: No Referrals: Marshall Canseco DO [Primary Care Provider] - 1-2 days Time of Disposition: 16:23
--- NOTE | 2021-10-17 16:03 | XR ---
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 Osteopenia. Atherosclerotic calcifications thr oughout the aorta. Interstitial changes in the lungs may be slightly increased from 02/25/2020. Mild superior endplate deformity midthoracic vertebral body is unchanged from 2020. Moderate degenerative disc space narrowing mid thoracic spine. Remaining vertebral body heights appear grossly preserved. P artially visualized right shoulder arthroplasty. Lumbar spine: Osteopenia. Suspected transitional lumbosacral segment is noted as a lumbarized S1. Advanced degenera tive disc disease L5-S1. Baastrup's disease. Hypertrophic facet arthropathy. Mild anterior wedging of both L1 and L3 levels. L1 anterior wedging was present back on the 02/25/2020 exam. L3 is age indete rminate. Dense atherosclerotic calcifications throughout the abdominal aorta. Alignment is maintained . IMPRESSION: Thoracic spine: 1. 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 2. Osteopenia. 3. Mild superior endplate deformity of a midthoracic vertebral body is chronic, unchanged from 2020. Moderate degenerative disc disease mid thoracic spine. 4. Interstitial changes in the lungs may be increased from 2020. Correlate for any respiratory sympto ms that would warrant dedicated chest x-ray evaluation. Lumbar spine: 5. Anterior wedging at both L1 and L3 compatible with mild compression injuries. The L1 anterior wedg e is unchanged from 2020. The L3 injury is age indeterminate. Correlate for any pain at this level. 6. Hypertrophic facet arthropathy. No malalignment. 7. Suspect a transitional lumbosacral segment. Advanced degenerative disc disease L5-S1. Baastrup's d isease.
== END 2021-10-17 16:50 | disposition home or self-care (01) ==
LOC: EC 14:02
DX: M54.50 Low back pain, unspecified (principal); M54.6 Pain in thoracic spine; I10 Essential (primary) hypertension; E78.5 Hyperlipidemia, unspecified; K21.9 Gastro-esophageal reflux disease without esophagitis; M19.90 Unspecified osteoarthritis, unspecified site; Z86.73 Personal history of transient ischemic attack (TIA), and cerebral infarction without residual deficits; Z79.82 Long term (current) use of aspirin; Z79.899 Other long term (current) drug therapy; W19.XXXA Unspecified fall, initial encounter
CPT/HCPCS: 72070; 72100; 99284; 96372 ×2; J2360; J1885

== ENCOUNTER → 2022-02-07 | Outpatient (CLI) | payer MEDICARE ==
--- NOTE | 2022-02-07 15:08 | NM ---
EXAMINATION TYPE: NM bone scan whole body DATE OF EXAM: 02/07/2022 COMPARISON: Thoracic and lumbar spine x-rays October 17, 2021 HISTORY: Thoracic spine pain since fall in September 2021 history of multiple joint replacements. Spondylos is. Delayed whole-body scanning was performed following the injection of 23.4 mCi Tc 99m MDP. Images acq uired 3.25 hours post injection. Images obtained in the anterior and posterior projection along with additional spot views of the thorax and abdomen. FINDINGS: There is horizontal increased radiotracer uptake in the midthoracic spine at roughly T7 or T8 level c orresponding to mild to moderate compression type fracture on plain films, finding suspected subacute in age given the nuclear medicine findings along with the history. More mild uptake near the thoraco lumbar junction is present corresponding to mild height loss at the L1 vertebra. Some increased uptak e in the posterior mid to lower lumbar spine likely reflects product of degenerative change. Lucency from surgical change bilateral knees and left shoulder is present. Normal excretion is seen. IMPRESSION: As above, probable now subacute fracture injury to the approximate T8 vertebra.
== END | disposition home or self-care (01) ==
LOC: RADNMMAIN 10:13
PROVIDERS: ATTEND Physical Medicine & Rehabilitation
DX: M47.814 Spondylosis without myelopathy or radiculopathy, thoracic region (principal); M54.6 Pain in thoracic spine
CPT/HCPCS: 78306; A9503

== ENCOUNTER → 2022-03-19 | Outpatient (CLI) | payer MEDICARE ==
--- NOTE | 2022-03-19 10:44 | XR ---
EXAMINATION TYPE: XR chest 2V DATE OF EXAM: 03/19/2022 10:21 AM COMPARISON: Chest radiographs from 02/25/2020. TECHNIQUE: XR chest 2V Frontal and lateral views of the chest. CLINICAL INDICATION:Female, 82 years old with history of R09.89 specified symptoms of respiratory sys tem; FINDINGS: Lungs/Pleura: There is no evidence of pleural effusion or pneumothorax. Bibasilar interstitial change s. Similar linear density at the left lung base likely representing scarring and or atelectasis. Heart/mediastinum: Cardiomediastinal silhouette is enlarged and stable. Musculoskeletal: No acute osseous pathology. Osteopenia. Left shoulder prosthesis redemonstrated. Mul tilevel degenerative changes of the visualized spine. Redemonstration of mid thoracic spine compressi on deformities. IMPRESSION: Bibasilar interstitial opacities which may be related to atypical pneumonia versus pulmonary edema ve rsus interstitial lung disease.
== END | disposition home or self-care (01) ==
LOC: RADXRMAIN 10:02
PROVIDERS: ATTEND Family Medicine
DX: R09.89 Other specified symptoms and signs involving the circulatory and respiratory systems (principal)
CPT/HCPCS: 71046

== ENCOUNTER → 2023-05-31 | Outpatient (CLI) | payer MEDICARE ==
--- NOTE | 2023-05-31 08:04 | US ---
EXAMINATION TYPE: US abdomen complete DATE OF EXAM: 05/31/2023 COMPARISON: NONE CLINICAL INDICATION: Female, 83 years old with history of ABD PAIN R10.9; Abdominal pain, cholecystec valente TECHNIQUE: Multiple sonographic images of the abdomen are obtained. FINDINGS: EXAM MEASUREMENTS: Liver Length: 14.2 cm Gallbladder: Surgically absent CBD: 0.8 cm Spleen: 9.2 cm Right Kidney: 8.0 x 3.7 x 4.2 cm Left Kidney: 8.9 x 4.6 x 3.8 cm MEDICAL LEADER NOTES: Technical limitations due to patient's body habitus and large amount of overlyin g bowel gas Pancreas: Obscured by bowel gas Liver: limited evaluation shows no gross abnormality Gallbladder: Surgically absent Evidence for sonographic Yuan's sign: no CBD: Mildly dilated but acceptable given the patient's age and cholecystectomy status Spleen: appears wnl Right Kidney: no evidence of hydronephrosis Left Kidney: Lower pole cortical cyst. 0.8 x 0.7 x 0.9cm. No hydronephrosis. Upper IVC: Obscured by overlying bowel gas Abd Aorta: bifurcation obscured by overlying bowel gas IMPRESSION: 1. Exam limitations due to body habitus and bowel gas. 2. Bile duct mildly dilated at 8 mm. However, this is acceptable given patient's age and postcholecys tectomy status.
== END | disposition home or self-care (01) ==
LOC: RADUSWWP 06:52
PROVIDERS: ATTEND Family Medicine
DX: K83.8 Other specified diseases of biliary tract (principal); R10.9 Unspecified abdominal pain; Z90.49 Acquired absence of other specified parts of digestive tract
CPT/HCPCS: 76700

== ENCOUNTER → 2023-06-25 | Outpatient (CLI) | payer MEDICARE ==
[2023-06-25 09:03] LABS: African American GFR (CKD) 61 (>60 ml/min/1.73 sqM); Blood Urea Nitrogen 53 mg/dL (7-17); Non-African American GFR(CKD) 53 (>60 ml/min/1.73 sqM)
--- NOTE | 2023-06-28 07:45 | CT ---
EXAMINATION TYPE: CT abdomen w con DATE OF EXAM: 06/25/2023 COMPARISON: 12/07/2011, ultrasound 05/31/2023 INDICATION: Abnormal tumor markers, abdomen pain, pt said it may have to do with pancreas. DLP: 451.80 mGycm, Automated exposure control for dose reduction was used. CONTRAST: 80 mL of Isovue 300. Study performed with Oral Contrast TECHNIQUE: Axial images were obtained from above the diaphragm to the pubic rami in the axial plane a t 5 mm thick sections. Reconstructed images are reviewed on the computer in the coronal plane. FINDINGS: Limited CT sections are obtained the lung bases. The lung bases are clear. CT ABDOMEN: Liver: Normal Spleen: Normal Pancreas: Subtle rounded density may be within the head of the pancreas. This could be artifact with the plane of section. This is not identified on the reconstructed sagittal plane images. This area ap pears to be obscured by bowel gas on the recent ultrasound. If there are positive serum markers for pancreas neoplasm, consider contrast MRI for additional evaluation. Adrenal glands: Left adrenal gland is slightly rounded measuring 1.4 cm. This is an interval change. Consider follow-up CT with contrast with adrenal protocol. Gallbladder: Surgically absent. Kidneys: No masses are evident. No hydronephrosis is present. Small cortical renal cysts are presen t. These are better visualized in the left kidney on the delayed images. Aorta: Vascular calcification is within the aorta. Inferior vena cava: Normal. CT PELVIS: Loops of bowel within the abdomen and upper pelvis are normal. There are loops of bowel which are incompletely distended or lack oral contrast limiting their evaluation. Appendix: Normal as visualized. IMPRESSION: 1. Subtle change may be within the head of the pancreas. Consider additional workup with contrast MRI . 2. Slight rounding of the left adrenal gland may be a benign adenoma. CT with contrast using adrenal protocol can be performed for additional evaluation. Differential diagnosis would include metastatic disease.
== END | disposition home or self-care (01) ==
LOC: RADCTMAIN 08:17
PROVIDERS: ATTEND Family Medicine
DX: E27.8 Other specified disorders of adrenal gland (principal); R97.8 Other abnormal tumor markers; R10.9 Unspecified abdominal pain; Z90.49 Acquired absence of other specified parts of digestive tract
CPT/HCPCS: 82565; 84520; 74160; 36415; Q9967

== ENCOUNTER → 2023-07-13 | Outpatient (CLI) | payer MEDICARE ==
--- NOTE | 2023-07-13 13:31 | MR ---
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 Post contrast imaging was performed. Post IV contrast subtraction images were also submitted for review. IV Contrast: 6 cc Gadavist FINDINGS: LOWER CHEST: No gross irregularity. ABDOMEN Liver: No evidence for cirrhosis. Signal dropout on chemical shift of phase imaging. Gallbladder and Bile ducts: In the gallbladder is surgically absent. There is dilation of the extra h epatic biliary system and central intrahepatic bili system measuring up to 11 mm at the common hepati c duct and 7 mm at the common bile duct. Pancreas: No ductal dilation. No evidence for solid mass. Spleen: Normal for size. Adrenal glands: Adrenal glands are unremarkable. No evidence for mass. Kidneys: No evidence for obstructive uropathy. No suspicious renal masses. Inferior left renal cortic al high T2 signal cyst. Stomach and Bowel: No evidence for bowel wall thickening or evidence for obstruction. Scattered colon ic diverticula. Peritoneum: No evidence of pneumoperitoneum or free fluid. Vasculature: No aortic aneurysm. Musculoskeletal: The osseous structures appear intact. Lymph Nodes: No gross evidence for lymphadenopathy. Abdominal wall: Unremarkable. IMPRESSION: 1. Finding in the head of the pancreas are felt to relate to CT technique and heterogenous pancreati c tissue. No solid pancreatic neoplasms identified. 2. Adrenal glands are unremarkable. No evidence for mass. 3. Colonic diverticulosis. 4. Simple appearing renal cysts. 5. Hepatic steatosis.
== END | disposition home or self-care (01) ==
LOC: RADMRIMAIN 08:18
PROVIDERS: ATTEND Family Medicine
DX: K57.30 Diverticulosis of large intestine without perforation or abscess without bleeding (principal); C25.0 Malignant neoplasm of head of pancreas; K86.89 Other specified diseases of pancreas; N28.1 Cyst of kidney, acquired; K76.0 Fatty (change of) liver, not elsewhere classified; M54.50 Low back pain, unspecified; Z90.49 Acquired absence of other specified parts of digestive tract
CPT/HCPCS: 74183; A9585

== ENCOUNTER → 2023-08-26 | Outpatient (CLI) | payer MEDICARE ==
[2023-08-26 16:26] LABS: ALT 20 U/L (8-44); AST 28 U/L (13-35); Blood Urea Nitrogen 37.2 mg/dL (9.0-27.0); Carbon Dioxide 26.9 mmol/L (21.6-31.8); Chloride 101 mmol/L (96-109); Chol/HDL Ratio 3.01 Ratio; LDL Cholesterol,Calculated 93.7 mg/dL (0.0-131.0); Potassium 4.4 mmol/L (3.5-5.5); Sodium 142 mmol/L (135-145); Uric Acid 2.7 mg/dL (2.9-7.7)
== END | disposition home or self-care (01) ==
LOC: LABWHC1 08:29
PROVIDERS: ATTEND Internal Medicine Cardiovascular Disease
DX: E78.2 Mixed hyperlipidemia (principal); E55.9 Vitamin D deficiency, unspecified; R79.82 Elevated C-reactive protein (CRP)
CPT/HCPCS: 36415; 80051; 80061; 82306; 82565; 84450; 84460; 84520; 84550; 86141

== ENCOUNTER 2024-02-19 12:43 | Emergency (ER) | payer MEDICARE ==
[2024-02-19 12:54] VITALS: RESP 18
--- NOTE | 2024-02-19 13:29 | ED ---
Back Pain [facility] - General Chief Complaint: Back Pain/Injury Stated Complaint: Back pain Time Seen by Provider: 02/19/24 12:55 Source: patient, RN notes reviewed Mode of arrival: ambulatory Limitations: no limitations - History of Present Illness Initial Comments: This is an 84-year-old female who presents to the emergency department for lower back pain. Patient has a history of chronic back problems, and states that she was in a car for the last couple of days, which caused her pain to act up. Pain is all in the center of the lower back. She is taking Tylenol without any relief. Denies any chest pain or shortness of breath. Pain does not radiate down her legs. Denies any loss of bowel/bladder control or saddle anesthesia. MD Complaint: back pain - Related Data Home Medications Medication Instructions Recorded Confirmed Cholecalciferol [Vitamin D3] 5,000 unit PO DAILY 08/29/15 02/25/20 Ezetimibe [Zetia] 10 mg PO DAILY 08/29/15 02/25/20 Multivitamins, Thera [Multivitamin] 1 tab PO DAILY 08/29/15 02/25/20 Niacin [Niacin ER] 500 mg PO DAILY 08/29/15 02/25/20 RX: Aspirin 81 mg PO DAILY 08/29/15 02/25/20 RX: Atenolol/Chlorthalidone 1 tab PO DAILY 08/29/15 02/25/20 [Atenolol/Chlorthalidone 50-25] RX: Vitamin E 400 unit PO DAILY 08/29/15 02/25/20 Temazepam [Restoril] 15 mg PO HS PRN 08/29/15 02/25/20 Acetaminophen Tab [Tylenol Tab] 1,000 mg PO Q6HR PRN 09/17/16 02/25/20 Berberine Hcl 250 mg PO DAILY 09/17/16 02/25/20 allopurinoL [Zyloprim] 300 mg PO DAILY 02/25/20 02/25/20 Previous Rx's Medication Instructions Recorded Cyclobenzaprine [Flexeril] 5 mg PO BID PRN #10 tablet 10/17/21 Orphenadrine [Norflex] 100 mg PO Q12H PRN #20 tab 02/19/24 RX: predniSONE [Deltasone] 20 mg PO BID 5 Days #10 tab 02/19/24 Allergies Allergy/AdvReac Type Severity Reaction Status Date / Time enoxaparin sodium Allergy Nausea & Verified 02/19/24 12:50 [From Lovenox] Vomiting & Diarrhea,muscle aches and pains methocarbamol [From Robaxin] Allergy Unknown Verified 02/19/24 12:50 warfarin sodium Allergy Nausea & Verified 02/19/24 12:50 [From Coumadin] Vomiting & Diarrhea,dehydration Gsbzayz-OPB-RgG Reductase AdvReac Severe MUSCLE Verified 02/19/24 12:50 Inhibitor SPASMS IN [Dmydliq-Psz-Fck Reductase LEGS Inhibitor] meloxicam [From Mobic] AdvReac ELEV LIVER Verified 02/19/24 12:50 ENZYMES (AVOIDS "ARTHRITIC" RX) Review of Systems ROS Statement: Those systems with pertinent positive or pertinent negative responses have been documented in the HPI. ROS Other: All systems not noted in ROS Statement are negative. 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 Hx Collapse Lung r/t Whooping Cough as a child, AND FREQ PNEUMONIA. HX SKIN CA NOSE. MARIA L EAR TINNITUS. MINOR VARICOSE VEIN. RECENT ABN STRESS TEST (FOR PRE-OP CLEARANCE). HAIRLINE FX LT LATERAL ANKLE, WEARING BOOT SINCE 07/2016. History of Any Multi-Drug Resistant Organisms: None Reported Past Surgical History: Back Surgery, Section, Cholecystectomy, Ear Surgery, Heart Catheterization, Hysterectomy, Joint Replacement Additional Past Surgical History / Comment(s): TOTAL Lt Knee, LT HIP Replacemen t. Lt Carotid ENDARTERECTOMY. CARDIAC CATH X2. BRONCHOSCOPY YEARS AGO. BMT. Colonscopies. left shoulder surgery, back surgery Past Anesthesia/Blood Transfusion Reactions: No Reported Reaction Past Psychological History: No Psychological Hx Reported Smoking Status: Never smoker Past Alcohol Use History: Occasional Past Drug Use History: None Reported - Past Family History Father Family Medical History: Liver Disease Mother Family Medical History: CVA/TIA Brother(s) Family Medical History: Cancer, Deep Vein Thrombosis (DVT) Additional Family Medical History / Comment(s): 1/2 BROTHER Sister(s) Family Medical History: Cancer Additional Family Medical History / Comment(s): X2 SISTERS General Exam Limitations: no limitations General appearance: alert, in no apparent distress Head exam: Present: atraumatic, normocephalic, normal inspection Respiratory exam: Present: normal lung sounds bilaterally. Absent: respiratory distress, wheezes, rales, rhonchi, stridor Cardiovascular Exam: Present: regular rate, normal rhythm, normal heart sounds. Absent: systolic murmur, diastolic murmur, rubs, gallop, clicks Back exam: Present: other (Tenderness to palpation over the lower back) Neurological exam: Present: alert, oriented X3, CN II-XII intact Psychiatric exam: Present: normal affect, normal mood Skin exam: Present: warm, dry, intact, normal color. Absent: rash Course Vital Signs 02/19/24 02/19/24 02/19/24 12:50 15:09 15:40 Temperature 97.8 F 98.1 F 98.1 F Pulse Rate 77 73 74 Respiratory 18 18 18 Rate Blood Pressure 136/77 112/57 114/60 O2 Sat by Pulse 95 96 96 Oximetry Medical Decision Making - Medical Decision Making This is an 84 year old female who presents to the emergency department for lower back pain. Was pt. sent in by a medical professional or institution? @ -No Did you speak to anyone other than the patient for history? @ -No Did you review nursing and triage notes? @ -Yes, and I agree, it is accurate with regards to the patient's symptoms. Were old charts reviewed? @ -No Differential Diagnosis? @ -Differential Back Pain: Strain, zoster, cauda equina syndrome, epidural abscess, vertebral osteomyelitis, discitis, fracture, subluxation, disc herniation, DJD, spinal stenosis, dissection, AAA, pancreatitis, peptic ulcer disease, pyelonephritis, kidney stone, this is not meant to be an all-inclusive list. EKG interpreted by me (3pts min.)? @ -Not obtained X-rays interpreted by me (1pt min.)? @ -X-ray of the lumbar spine obtained. My interpretation identifies no acute fractures. CT interpreted by me (1pt min.)? @ -Not obtained U/S interpreted by me (1pt. min.)? @ -Not obtained What testing was considered but not performed? (CT, X-rays, U/S, labs)? Why? @ -None What meds were considered but not given? Why? @ -None Did you discuss the management of the patient with other professionals? @ -No Did you reconcile home meds? @ -No Was smoking cessation discussed for >3mins.? @ -No Was critical care preformed (if so, how long)? @ -No Were there social determinants of health that impacted care today? How? (Homelessness, low income, unemployed, alcoholism, drug addiction, transportation, low edu. Level, literacy, decrease access to med. care, half-way, rehab)? @ -No Was there de-escalation of care discussed even if they declined? (Discuss DNR or withdrawal of care, Hospice)? @ -No What co-morbidities impacted this encounter? (DM, HTN, Smoking, COPD, CAD, Cancer, CVA, Hep., AIDS, mental health diagnosis, sleep apnea, morbid obesity)? @ -Osteoarthritis Was patient admitted / discharged? @ -Discharged. Patient has an exacerbation of her chronic back pain. X-ray was obtained revealing no acute process. She had no red flag signs or symptoms. Pain was managed in the emergency department. States that she does not respond well to some NSAIDs and was subsequently given a prescription for prednisone to take with Norflex to see if that offers her any further benefit. She does have a prescription for lidocaine patches at home which she can continue to use as w ell. Advised follow-up with her PCP for reevaluation. Patient discharged home in stable condition. Case discussed with ED attending, Dr. Baeza. Return precautions reviewed in depth, the patient is instructed to return to the emergency department with any new, worsening, or concerning symptoms. Patient verbalized understanding. Undiagnosed new problem with uncertain prognosis? @ -None Drug Therapy requiring intensive monitoring for toxicity (Heparin, Nitro, Insulin, Cardizem)? @ -None Were any procedures done? @ -None Diagnosis/symptom? @ -Low back strain Acute, or Chronic, or Acute on Chronic? @ -Acute Uncomplicated (without systemic symptoms) or Complicated (systemic symptoms)? @ -Uncomplicated Side effects of treatment? @ -None Exacerbation, Progression, or Severe Exacerbation] @ -Not applicable Poses a threat to life or bodily function? @ -No - Radiology Data Radiology results: report reviewed, image reviewed Disposition Clinical Impression: Strain of lumbar region Disposition: HOME SELF-CARE Instructions (If sedation given, give patient instructions): Low Back Strain (ED), Acute Low Back Pain (ED) Additional Instructions: Return to the emergency department with any new, worsening, or concerning symptoms. Take the prednisone twice daily for 5 days. Take the Norflex twice daily to help with discomfort. Be aware that this may make you drowsy. Continue to take Tylenol as needed as well. After you finish the 5 day course of prednisone, begin taking an antiinflammatory like Ibuprofen. Follow up with your primary care provider in 1-2 days. Prescriptions: RX: predniSONE [Deltasone] 20 mg PO BID 5 Days #10 tab Orphenadrine [Norflex] 100 mg PO Q12H PRN #20 tab PRN Reason: Pain Is patient prescribed a controlled substance at d/c from ED?: No Referrals: Marshall Canseco DO [Primary Care Provider] - 1-2 days Time of Disposition: 15:12
[2024-02-19] MEDS: KETOROLAC 15 MG/ML 1 ML VIAL IVP STA (13:40)
[2024-02-19] MEDS: ORPHENADRINE 30 MG/ML 2 ML VIAL IVP STA (13:40)
[2024-02-19] MEDS: DEXAMETHASONE SOD PHOSPHATE 10 MG/ML 1 ML VIAL IVP STA (13:40)
[2024-02-19] MEDS: MORPHINE SULFATE 2 MG/ML SYRINGE IVP STA (13:41)
--- NOTE | 2024-02-19 14:18 | XR ---
EXAMINATION TYPE: XR lumbar spine 2 or 3V DATE OF EXAM: 02/19/2024 CLINICAL HISTORY: pain TECHNIQUE: Three views of the lumbar spine are submitted. COMPARISON: 10/17/2021 FINDINGS: There are 5 lumbar type vertebral bodies identified. The lumbar spine shows satisfactory alignment w ithout evidence of acute fracture or dislocation. Vertebral body heights are within normal limits. Severe multilevel degenerative disc disease with vacuum disc and endplate sclerosis. Ventral spondylo sis and facet joint arthropathy. Loss of vertebral body height superior endplate of L2 is chronic in nature. The overlying soft tissue appears unremarkable. IMPRESSION: No acute fracture or dislocation is seen in the lumbar spine. ICD 10 NO FRACTURE, INITIAL EVALUATION [facility], , 02/19/2024 2:16 PM
[2024-02-19 15:12] VITALS: TEMP 98.1
[2024-02-19] MEDS: MORPHINE SULFATE 4 MG/ML SYRINGE IVP STA (15:13)
[2024-02-19] MEDS: traMADol 50 MG STARTER PACK 3 TAB BTL PO STA (15:18)
[2024-02-19 15:48] VITALS: BP 114/60; PULSE 74
== END 2024-02-19 15:47 | disposition home or self-care (01) ==
LOC: EC 12:43
CPT/HCPCS: 72100; 96374; 96375; 96376; 99283

== ENCOUNTER → 2024-04-21 | Outpatient (CLI) | payer MEDICARE ==
--- NOTE | 2024-04-21 20:08 | NM ---
EXAMINATION TYPE: NM bone scan whole body DATE OF EXAM: 04/21/2024 COMPARISON: NONE HISTORY: Low back pain Delayed whole-body scanning was performed following the injection of 18.7 mCi Tc 99m MDP. Images wer e acquired 3 hours post injection. FINDINGS: There is increased signal within the region of L1. This correlates with a compression deformity ident ified on plain film. Findings are likely acute. Some mild deformity in the region of L3 is present. Suspicious uptake on the bone scan is not identif ied more likely chronic. Some minimal uptake is in the posterior right and mid left lumbar spine region more likely related to degenerative changes. There is increased uptake at the right femoral head compatible with the patient's advanced osteoarthr itic degenerative change There is increased uptake in the region of the left ankle most likely degenerative in nature. IMPRESSION: 1. Focal uptake at the region of L1 which appears to correlate with outside plain films compression d eformity. Findings are likely acute. 2. Remaining uptake appears to be related to degenerative changes [facility], , 04/21/2024 8:05 PM
== END | disposition home or self-care (01) ==
LOC: RADNMMAIN 10:54
PROVIDERS: ATTEND Physical Medicine & Rehabilitation
DX: S32.020D Wedge compression fracture of second lumbar vertebra, subsequent encounter for fracture with routine healing (principal); M47.814 Spondylosis without myelopathy or radiculopathy, thoracic region; M51.34 Other intervertebral disc degeneration, thoracic region
CPT/HCPCS: 78306; A9503

== ENCOUNTER → 2024-08-03 | Outpatient (CLI) | payer MEDICARE ==
[2024-08-03 10:36] LABS: INR 0.9 (<1.2); Prothrombin Time 10.1 sec (10.0-12.5)
[2024-08-03 10:39] LABS: Partial Thromboplastin Time 21.2 sec (22.0-30.0)
[2024-08-03 15:19] LABS: Basophils % (A) 0.8 %; Eosinophils # (A) 0.35 X 10*3/uL (0.04-0.35); Eosinophils % (A) 2.8 %; HCT 40.8 % (37.2-46.3); HGB 12.8 g/dL (12.0-15.0); Lymphocytes % (A) 24.2 %; MCH 31.1 pg (27.0-32.0); MCHC 31.4 g/dL (32.0-37.0); Mean Platelet Volume 11.3 FL (9.5-12.2); Monocytes # (A) 1.28 X 10*3/uL (0.20-1.00); Monocytes % (A) 10.3 %; NRBC Per 100 WBC 0 X 10*3/uL (0.00-0.01); Neutrophils # (A) 7.62 X 10*3/uL (1.80-7.70); Neutrophils % (A) 61.6 %; Platelet Count 321 X 10*3/uL (140-440); RBC 4.12 X 10*6/uL (4.10-5.20); RDW 14.1 % (11.5-14.5); WBC 12.39 X 10*3/uL (4.50-10.00)
[2024-08-03 15:39] LABS: ALT 21 U/L (8-44); AST 32 U/L (13-35); Albumin 4.4 g/dL (3.8-4.9); Albumin/Globulin Ratio 1.63 Ratio (1.60-3.17); Alkaline Phosphatase 120 U/L (41-126); BUN/Creat Ratio 41.27 Ratio (12.00-20.00); Blood Urea Nitrogen 45.4 mg/dL (9.0-27.0); Calcium 10.2 mg/dL (8.7-10.3); Carbon Dioxide 29.7 mmol/L (21.6-31.8); Chloride 100 mmol/L (96-109); Globulin 2.7 g/dL (1.6-3.3); Glucose 118 mg/dL (70-110); Potassium 5.1 mmol/L (3.5-5.5); Sodium 142 mmol/L (135-145); Total Bilirubin 0.4 mg/dL (0.3-1.2); Total Protein 7.1 g/dL (6.2-8.2)
== END | disposition home or self-care (01) ==
LOC: LABPAT 09:45
PROVIDERS: ATTEND Orthopaedic Surgery
DX: Z01.812 Encounter for preprocedural laboratory examination (principal); Z22.322 Carrier or suspected carrier of Methicillin resistant Staphylococcus aureus; E11.9 Type 2 diabetes mellitus without complications; M16.11 Unilateral primary osteoarthritis, right hip
CPT/HCPCS: 80053; 83036; 85025; 85610; 85730; 86850; 86900; 86901; 87070

== ENCOUNTER 2024-08-14 10:28 | Day surgery (SDC) | payer MEDICARE ==
[~2024-08-14 10:28] MED LIST changes: -ALPRAZolam 0.25 MG TAB PO PRN; -ALPRAZolam 0.5 MG TAB PO PRN; +KETOROLAC 15 MG/ML 1 ML VIAL IVP PRN; +LIDOCAINE 1% (10MG/ML) FOR IV START INTRADERMA PRN; -NITROGLYCERIN SL TABS 0.4 MG TAB SUBLINGUAL PRN; -SODIUM CHLORIDE 0.9% 1,000 ML in EMPTY BAG 1 BAG IV ONE; +TRANEXAMIC 1,000 MG/100ML-NACL 1,000 MG in SALINE 1 100ML.BAG IV PRN; +TRANEXAMIC 1,000 MG/100ML-NACL 1,000 MG in SALINE 1 100ML.BAG IVPB PRN
[2024-08-14 11:40] LABS: Glucose,Whole Blood 122 mg/dL (70-110)
[2024-08-14] MEDS: IV FLUID CONTINUATION 1,000 ML IV ONE (11:40)
[2024-08-14] MEDS: ONDANSETRON 4 MG/2 ML VIAL IVP PRN (11:48)
[2024-08-14] MEDS: ACETAMINOPHEN TAB 500 MG TAB PO PRN (11:49)
[2024-08-14] MEDS: FAMOTIDINE 20 MG/2 ML VIAL IVP PRN (11:49)
[2024-08-14] MEDS: DEXAMETHASONE SOD PHOSPHATE 10 MG/ML 1 ML VIAL IV PRN (11:49)
[2024-08-14 12:10] LABS: Basophils # (A) 0.1 k/uL (0-0.2); Basophils % (A) 1 %; Eosinophils # (A) 0.3 k/uL (0-0.7); Eosinophils % (A) 4 %; HCT 42.2 % (34.0-46.0); HGB 13.1 gm/dL (11.4-16.0); Lymphocytes # (A) 2.9 k/uL (1.0-4.8); Lymphocytes % (A) 31 %; MCH 30.6 pg (25.0-35.0); MCV 98.7 fL (80.0-100.0); Mean Platelet Volume 8.6; Monocytes # (A) 0.8 k/uL (0-1.0); Monocytes % (A) 9 %; Neutrophils # (A) 5.1 k/uL (1.3-7.7); Neutrophils % (A) 54 %; Platelet Count 358 k/uL (150-450); RBC 4.27 m/uL (3.80-5.40); RDW 14.1 % (11.5-15.5); WBC 9.5 k/uL (3.8-10.6)
[2024-08-14] MEDS: oxyCODONE ER 10 MG TAB.ER.12H PO PRN (12:19)
[2024-08-14] MEDS: DOCUSATE 100 MG CAP PO PRN (12:19)
[2024-08-14] MEDS: MIDAZOLAM 2 MG/2 ML VIAL IV ONE (12:39)
[2024-08-14] MEDS ORDERED: TRANEXAMIC 1,000 MG/100ML-NACL PREMIX BAG ONE (13:32)
[2024-08-14] MEDS ORDERED: fentaNYL (PF) 50 MCG/ML 2 ML AMP ONE (13:32)
[2024-08-14] MEDS ORDERED: ROCURONIUM 10 MG/ML (5 ML VIAL) IV ONE (13:32)
[2024-08-14] MEDS ORDERED: PROPOFOL 10 MG/ML 20 ML VIAL IV ONE (13:32)
[2024-08-14] MEDS ORDERED: LIDOCAINE 1% INJ 10MG/ML (20 ML MDV) ONE (13:32)
[2024-08-14] MEDS ORDERED: GLYCOPYRROLATE 0.2 MG/ML 2 ML VIAL ONE (13:32)
[2024-08-14] MEDS ORDERED: SUCCINYLCHOLINE CHLORIDE 200 MG/10 ML VIAL IV ONE (13:32)
[2024-08-14] MEDS ORDERED: DEXAMETHASONE SOD PHOSPHATE 4 MG/ML 1 ML VIAL ONE (13:32)
[2024-08-14] MEDS ORDERED: ROPIVACAINE 5 MG/ML 30 ML VIAL ONE (13:32)
[2024-08-14] MEDS ORDERED: NEOSTIGMINE 1 MG/ML 10 ML VIAL ONE (13:32)
[2024-08-14] MEDS: ROPIVACAINE/EPI/CLONIDINE/KET 50 ML SYRINGE MISCELLANE PRN (14:21)
[2024-08-14] MEDS: EPINEPHrine 2 MG in SODIUM CHLORIDE 0.9% 200 ML IV ONE (14:21)
[2024-08-14] MEDS: LACTATED RINGERS 1,000 ML IV ONE (14:51)
--- NOTE | 2024-08-14 15:36 | P.OP ---
Date of Procedure: 08/14/24 Preoperative Diagnosis: Severe right hip osteoarthritis Postoperative Diagnosis: Same Procedure(s) Performed: Right direct anterior total hip arthroplasty Implants: 1. Orlando Trident II Acetabular Cup, Size #46 2. Sara Accolade C Size #3 Femoral Stem, Standard Offset 3. Dual Mobility OD 36 mm, ID 22.2 mm, +0 mm neck Anesthesia: GETA, regional Surgeon: Kenney Parrish Information Technology Auditor #1: Ken Larkin Estimated Blood Loss (ml): 300 IV fluids (ml): 800 Pathology: none sent Condition: stable Disposition: PACU Indications for Procedure: I had a long discussion with the patient in the office on the potential risks and complications of an elective total hip replacement through a direct anterior approach. Risks discussed include, but are certainly not limited to, risks from anesthesia, superficial infection requiring local wound care or antibiotics, deep stu-prosthetic joint infection and the treatment required to eradicate infection, intraoperative fracture, postoperative periprosthetic fracture, damage to local blood vessels or nerves particularly the lateral femoral cutaneous nerve, delayed wound healing requiring local wound care or possibly surgical debridement, hip dislocation, leg length discrepancy, soft tissue irritation around the total hip implant such as iliopsoas tendinitis or trochanteric bursitis, wear and osteolysis from the implants, squeaking or audible noises, groin pain, thigh pain, heterotopic ossification, stiffness, aseptic loosening of the implants, dissatisfaction with surgical outcome, need for revision surgery, DVT, PE, swelling of the operative extremity, acute coronary event, stroke, failure to thrive, and possibly loss of life or limb. The patient understands that while these are the most common complications after an elective hip replacement there are certainly other less common complications possible. They were given ample time to ask questions regarding the potential complications of a hip replacement. Following our discussion the patient provided their verbal and written consent to go forward with an elective total hip replacement. Operative Findings: Severe right hip osteoarthritis Description of Procedure: The patient was identified in the preoperative holding area and the correct hip was marked with my initials. I reviewed the procedure and consent with the patient. All of their questions were answered. The patient was then brought back into the operating room by anesthesia. [facility] was administered by the anesthesia team. Preoperative antibiotics and tranexamic acid were also given. After the patient was under anesthesia I examined their ankles to determine their preoperative leg length discrepancy. The skin over the anterior aspect of the hip was shaved to remove hair over the site of planned incision. Both feet and ankles were padded with webril and boots for the [place] were applied. The patient was then carefully transferred onto the [place] table. A perineal post was immediately placed. The arms were placed on arm holders and were well-padded. Both boots were secured to the spars on the [place] table. The patient was positioned so that the pelvis was centered over the post. Nonsterile drapes were applied. A timeout was performed identifying the correct patient, operative extremity, and procedure. At this point fluoroscopy was brought in to take preoperative images of the pelvis and operative hip. Using the standing AP pelvis from the office as a template, a comparable image was obtained with fluoroscopy. A metallic bar was used to create a bi-ischial line for use as a reference to leg length adjustments during the procedure. Global offset was also measured on both the operative and nonoperative leg. Fluoroscopy was then brought out and a pre-scrub using a chlorhexidine scrub brush was performed. The operative limb was then prepped and draped in the standard sterile fashion. An anterior longitudinal incision was made lateral and distal to the ASIS. The skin and subcutaneous tissues were incised sharply. The underlying tensor fascia was identified and incised in its midportion. The fascia was dissected free from the underlying muscle and the muscle belly was retracted. A blunt tipped cobra retractor was placed over the superior neck under the muscle fibers of the gluteus minimus. The deep enveloping fascia of the tensor was incised. The anterior leash of vessels were then identified and cauterized. The fascia between the rectus and the capsule was then incised and the pre-capsular fat was excised. A second Cobra was placed inferior to the neck. The interval between the rectus and iliocapsularis and the hip capsule was developed and a retractor was placed carefully over the anterior rim of the acetabulum. A T-shaped anterior capsulotomy was performed. The superior capsular leaflet was left in place in the inferior capsular flap was excised. The Cobra retractors were zahra conrad intracapsularly. We then made a femoral neck osteotomy according to preoperative and intraoperative templating and confirmed the level of the osteotomy using fluoroscopic imaging. The femoral head was removed, passed off to the back table, and sized. The superior capsular flap was excised. Retractors were placed circumferentially exposing the acetabulum. We then circumferentially debrided the acetabulum free of labrum and osteophytes. The pulvinar was removed to fully visualize the cotyloid fossa. We then sequentially reamed to achieve peripheral fit and excellent bleeding subchondral bone. The socket was thoroughly irrigated. The acetabular component was impacted into the appropriate position using fluoroscopy to guide version, inclination, and depth of insertion taking care to have a comparable image of the AP pelvis to the standing image taken in the office. An excellent press-fit was achieved and final position was confirmed using fluoroscopy. The press fit was augmented with bony cancellus dome screws. The liner was then impacted into the socket. Attention was then turned to the femur. The remnant dorsal lateral capsule was excised. The short external rotators were visible and protected. A bone hook was used to confirm appropriate translation of the trochanter away from the acetabulum. The leg was then extended and adducted and the bone hook was used t o elevate the femur for broaching. On inspection of the patient's proximal femur, they appeared to have poor bone quality so I elected to proceed with cemented fixation of the femoral component. A box osteotome and blunt tipped canal sound was then utilized to gain access to the femoral canal. We then sequentially broached the femur in appropriate anteversion until torsional stability was achieved and the implant was felt to have reached the appropriate size to allow trialing. The neck cut was brought flush to the trial broach with a calcar planar. A trial neck and head were then placed onto the broach and the hip was atraumatically reduced under direct visualization. External rotation to 90 was performed to assess stability. Fluoroscopy was brought in. An AP and lateral fluoroscopic image of the proximal femur was obtained to assess position and fill of the trial broach. An AP of the pelvis was then obtained and matched to the preoperative image taken. A bi-ischial bar was then placed and measurements were taken to assess changes in length and offset. The hip was then carefully dislocated, the proximal femur was exposed, and the trial implants were removed. The proximal femur was then prepared for cementing. The canal was thoroughly irrigated with pulsatile lavage to remove blood and marrow contents. A cement restrictor was placed to a depth just distal to the tip of the final implant. Epinephrine-soaked gauze was then packed into the proximal femur. 2 bags of cement were then mixed using a centrifuge and placed into a cement gun. Anesthesia was notified that cementing was about to commence to make sure the patient was appropriately ventilated and hydrated. Once the cement had reached appropriate consistency, the cement gun was used to fill the canal in a retrograde fashion starting at the restrictor. Cement was then pressurized into the canal with a blue tipped director surface transportation. The stem was then carefully introduced into the cement taking care to guide the implant into appropriate version. The stem was held in position until the cement had fully set. All extra cement was removed while the cement was hardening. The trunnion was cleansed and the final head was tapped into place to engage the Jones taper. The acetabulum was irrigated and visualized to be free of debris. The hip was carefully reduced. Stability was checked clinically with external rotation to 90 and there was no evidence of instability. Final fluoroscopic images were taken. The wound was then thoroughly irrigated and soaked with a dilute Betadine rinse for 3 minutes. 3 L of sterile saline was irrigated through the wound using pulsatile lavage. Local anesthetic cocktail was injected into the soft tissues around the surgical field. The wound was then closed in layers. A sterile dressing was placed over the surgical incision. The drapes were taken down and the patient was carefully transferred off of the [place] table. Following removal of the boots the leg lengths felt acceptable. The patient was then taken to recovery room having tolerated the procedure well. Ken Larkin PA-C was required as a skilled shipping and receiving assistant due to the complexity of surgery for patient positioning, draping, exposure, retraction, closure of wound and application of dressing. PLAN: The patient can weight-bear as tolerated on the operative extremity. 2 doses of postoperative antibiotics. DVT prophylaxis with aspirin 81 mg twice a day based on preoperative risk stratification. Physical therapy for gait training.
--- NOTE | 2024-08-14 15:57 | FL ---
EXAMINATION TYPE: FL guidance operating room, XR Hip Limited RT DATE OF EXAM: 08/14/2024 CLINICAL INDICATION: Female, 84 years old with history of RIGHT ANTERIOR HIP, pain and osteoarthritis TECHNIQUE: Fluoroscopy. Intraoperative limited views right hip. COMPARISON: Outside pelvic x-ray March 04, 2024. FINDINGS: Fluoroscopic guidance was provided during right hip replacement procedure performed by Dr. Parrish. A total of 33.3 seconds of fluoroscopic time was utilized during the procedure and 8 spot images was acquired. Initial images redemonstrated and degenerative change in the right hip. There i s eventual placement of metallic hardware from total right hip arthroplasty which appears satisfactor y in position after placement on intraoperative frontal projection. TOTAL DAP = 1.1929 Gycm2. IMPRESSION: As Above. [facility], , 08/14/2024 3:55 PM
[2024-08-14] MEDS: HYDROmorphone 0.5 MG/0.5 ML SYRINGE IVP PRN (16:15)
[2024-08-14] MEDS: MEPERIDINE 25 MG/ML SYRINGE IVP STA (16:40)
[2024-08-14] MEDS: LACTATED RINGERS 1,000 ML IV SCH (17:21)
[2024-08-14] MEDS ORDERED: NALOXONE 0.4 MG/ML 1 ML VIAL IV PRN (17:33)
[2024-08-14] MEDS ORDERED: diazePAM 5 MG TAB PO PRN ×2 (17:33)
[2024-08-14] MEDS ORDERED: HYDROcodone/APAP 10-325MG 1 EACH TAB PO PRN (17:33)
[2024-08-14] MEDS ORDERED: MAGNESIUM HYDROXIDE 2,400 MG/30 ML CUP PO PRN (17:33)
[2024-08-14] MEDS ORDERED: ONDANSETRON 4 MG/2 ML VIAL IVP PRN (17:33)
[2024-08-14] MEDS ORDERED: HYDROmorphone 0.5 MG/0.5 ML SYRINGE IVP PRN ×3 (17:33)
[2024-08-14] MEDS: SODIUM CHLORIDE 0.9% 1,000 ML IV SCH (17:49)
[2024-08-14] MEDS: SENNOSIDES-DOCUSATE SODIUM 1 EACH TAB PO SCH (20:16)
[2024-08-14] MEDS: ASPIRIN 81 MG PO SCH (20:16)
[2024-08-14 20:36] LABS: Glucose,Whole Blood 171 mg/dL (70-110)
[2024-08-15] MEDS: HYDROcodone/APAP 5-325MG 1 EACH TAB PO PRN (04:27)
[2024-08-15 06:10] LABS: Glucose,Whole Blood 170 mg/dL (70-110)
[2024-08-15 08:26] VITALS: BP 109/53; PULSE 78; RESP 19; TEMP 98.2
--- NOTE | 2024-08-15 08:48 | P.PN ---
Subjective Progress Note Date: 08/15/24 Patient is doing relatively well this morning. She has minimal pain in her right hip. Her main complaint is that her right leg feels unsteady which she attributes to the block. She says her leg feels numb. She is able to move everything. She denies chest pain or shortness of breath. Objective - Vital Signs Vital signs: Vital Signs Temp 98.2 F 08/15/24 06:45 Pulse 78 08/15/24 06:45 Resp 19 08/15/24 06:45 BP 109/53 08/15/24 06:45 Pulse Ox 96 08/15/24 06:45 FiO2 Intake & Output 08/14/24 08/15/24 08/15/24 18:59 06:59 18:59 Intake Total 1651 Output Total 100 400 Balance 1551 -400 Weight 58.6 kg Intake: IV 1651 Output: Urine 400 Estimated Blood Loss 100 Other: # Voids 3 - Exam Patient is resting comfortably in bed. She is alert and able to answer questions. A focused exam of the right lower extremity was conducted. On inspection there is an intact dressing over the anterior aspect of the right hip . The dressing was reinforced superiorly with a Tegaderm. Her thigh and calf are soft. Femoral nerve function is intact and she is able to actively extend her knee. She is also able to actively plantarflex and dorsiflex her ankle and her toes. She has slightly decreased sensation to light touch over the anterior aspect of the thigh. - Labs CBC & Chem 7: 08/14/24 11:34 Labs: Abnormal Lab Results - Last 24 Hours (Table) 08/14/24 08/14/24 08/15/24 Range/Units 11:37 20:36 06:08 POC Glucose (mg/dL) 122 H 171 H 170 H (70-110) mg/dL Assessment and Plan Assessment: Postoperative day #1 status post right direct anterior total hip arthroplasty Plan: 1. Weightbearing as tolerated on the operative extremity. Up with assistance and a walker. 2. DVT prophylaxis with aspirin 81 mg twice a day 3. Physical therapy for gait training and mobilization 4. Leave surgical dressing in place. 5. Internal medicine for perioperative medical management 6. Disposition: I would like to see how the patient does with physical therapy this morning. If she does well and is able to safely ambulate she could potentially discharge home later today. I anticipate she will likely need to stay an additional night for monitoring due to her advanced age following surgery.
[2024-08-15 09:42] LABS: HCT 31.8 % (37.2-46.3); MCH 31.3 pg (27.0-32.0); MCHC 31.4 g/dL (32.0-37.0); MCV 99.4 FL (80.0-97.0); Mean Platelet Volume 10.8 FL (9.5-12.2); NRBC Per 100 WBC 0 X 10*3/uL (0.00-0.01); Platelet Count 243 X 10*3/uL (140-440); RDW 14.4 % (11.5-14.5); WBC 15.58 X 10*3/uL (4.50-10.00)
[2024-08-15 10:19] LABS: Basophils # (A) 0.04 X 10*3/uL (0.00-0.10); Basophils % (A) 0.3 %; Eosinophils # (A) 0 X 10*3/uL (0.04-0.35); Eosinophils % (A) 0 %; Lymphocytes # (A) 1.79 X 10*3/uL (0.90-5.00); Lymphocytes % (A) 11.5 %; Monocytes # (A) 1.73 X 10*3/uL (0.20-1.00); Monocytes % (A) 11.1 %; Neutrophils # (A) 11.95 X 10*3/uL (1.80-7.70); Neutrophils % (A) 76.7 %
[2024-08-15] MEDS: FAMOTIDINE 20 MG TAB PO SCH (10:41)
[2024-08-15 12:08] LABS: Glucose,Whole Blood 201 mg/dL (70-110)
--- NOTE | 2024-08-15 14:47 | P.CONS ---
History of Present Illness - Reason for Consult Consult date: 08/15/24 Medical management - History of Present Illness History of present illness; patient 84-year-old lady with past medical history significant for hyperlipidemia, diabetes mellitus who presented to the ER for elective right total hip arthroplasty. Patient was being seen outpatient by orthopedic for right hip pain, was diagnosed with severe right hip arthritis, patient had tried conservative measures with pain control, therapy, steroid injections but all has failed, patient was scheduled for right total hip arthroplasty for which patient brought to the hospital on 08/14. Postoperatively internal medicine team were consulted for medical mall REVIEW OF SYSTEMS: CONSTITUTIONAL: No fever, no malaise, no fatigue. HEENT: No recent visual problems or hearing problems. Denied any sore throat. CARDIOVASCULAR: No chest pain, orthopnea, PND, no palpitations, no syncope. PULMONARY: No shortness of breath, no cough, no hemoptysis. GASTROINTESTINAL: No diarrhea, no nausea, no vomiting, no abdominal pain. NEUROLOGICAL: No headaches, no weakness, no numbness. HEMATOLOGICAL: Denies any bleeding or petechiae. GENITOURINARY: Denies any burning micturition, frequency, or urgency. MUSCULOSKELETAL/RHEUMATOLOGICAL: Right hip ENDOCRINE: Denies any polyuria or polydipsia. The rest of the 14-point review of systems is negative. PHYSICAL EXAMINATION: GENERAL: The patient is alert and oriented x3, not in any acute distress. Well developed, well nourished. HEENT: Pupils are round and equally reacting to light. EOMI. No scleral icterus. No conjunctival pallor. Normocephalic, atraumatic. No pharyngeal erythema. No thyromegaly. CARDIOVASCULAR: S1 and S2 present. No murmurs, rubs, or gallops. PULMONARY: Chest is clear to auscultation, no wheezing or crackles. ABDOMEN: Soft, nontender, nondistended, normoactive bowel sounds. No palpable organomegaly. MUSCULOSKELETAL: No joint swelling or deformity. Right hip surgical incision seen NEUROLOGICAL: Gross neurological examination did not reveal any focal deficits. SKIN: No rashes. Assessment and plan Right hip osteoarthritis status post right total hip arthroplasty Hyperlipidemia Diabetes mellitus Monitor vital signs Monitor CBC Monitor CMP Continue pain management per orthopedics Continue DVT prophylaxis per orthopedics Aggressive bowel regimen to prevent opioid-induced constipation Resume home meds PT and OT consulted Labs and medication were reviewed.. Continue same treatment. Continue with symptomatic treatment. Resume home medication. Monitor labs and vitals. DVT and GI prophylaxis. Further recommendations as per clinical course of the patient Dictation was produced using [employer] dictation software. please excuse any grammatical, word or spelling errors. Past Medical History Past Medical History: Cancer, Chest Pain / Angina, CVA/TIA, Diabetes Mellitus, GERD/Reflux, Hearing Disorder / Deafness, Hyperlipidemia, Hypertension, Memory Impairment, Osteoarthritis (OA), Pneumonia Additional Past Medical History / Comment(s): Hx TIA - no residual. no recent chest pain or angina, Hx Collapse Lung r/t Whooping Cough as a child, AND FREQ PNEUMONIA as a child-no recent pneumonia, past hx. microscopic blood in urine-no problems found, HX SKIN CA NOSE. MARIA L EAR TINNITUS. MINOR VARICOSE VEIN. hx. compression fx's in 2023-now healed History of Any Multi-Drug Resistant Organisms: None Reported Past Surgical History: Section, Cholecystectomy, Ear Surgery, Heart Catheterization, Hysterectomy, Joint Replacement Additional Past Surgical History / Comment(s): maria l Knee replacements, LT HIP Replacement. Lt Carotid ENDARTERECTOMY. CARDIAC CATH X2. BRONCHOSCOPY YEARS AGO. BMT. Colonscopies. reverse total left shoulder surgery, right foot surg. Past Anesthesia/Blood Transfusion Reactions: No Reported Reaction Additional Past Anesthesia/Blood Transfusion Reaction / Comm: after D & C years ago Past Psychological History: No Psychological Hx Reported Smoking Status: Former smoker Past Alcohol Use History: Occasional Additional Past Alcohol Use History / Comment(s): Quit Smoking 1995, Smoked 30 yrs, <1ppd Past Drug Use History: None Reported - Past Family History Father Family Medical History: Liver Disease Mother Family Medical History: CVA/TIA Brother(s) Family Medical History: Cancer, Deep Vein Thrombosis (DVT) Additional Family Medical History / Comment(s): 1/2 BROTHER Sister(s) Family Medical History: Cancer Additional Family Medical History / Comment(s): X2 SISTERS Medications and Allergies Home Medications Medication Instructions Recorded Confirmed Type Aspirin 81 mg PO DAILY 08/29/15 08/14/24 History Atenolol/Chlorthalidone 0.5 tab PO DAILY 08/29/15 08/12/24 History [Atenolol/Chlorthalidone 50-25] Cholecalciferol [Vitamin D3] 5,000 unit PO DAILY 08/29/15 08/12/24 History Multivitamins, Thera [Multivitamin] 1 tab PO DAILY 08/29/15 08/12/24 History Vitamin E 400 unit PO DAILY 08/29/15 08/12/24 History Acetaminophen Tab [Tylenol Tab] 1,000 mg PO Q6HR PRN 09/17/16 08/14/24 History allopurinoL [Zyloprim] 300 mg PO HS 02/25/20 08/14/24 History Donepezil [Aricept] 5 mg PO QAM 08/12/24 08/12/24 History Empagliflozin [Jardiance] 25 mg PO DAILY 08/12/24 08/14/24 History Prasterone (Dhea) [Dhea] 50 mg PO DAILY 08/12/24 08/12/24 History Aspirin 81 mg PO BID #60 tab 08/15/24 Rx Docusate [Colace] 100 mg PO BID #30 capsule 08/15/24 Rx HYDROcodone/APAP 5-325MG [[place] 1 - 2 tab PO Q6HR PRN #24 tab 08/15/24 Rx 5-325] Omeprazole [PriLOSEC] 40 mg PO DAILY #30 cap 08/15/24 Rx Ondansetron [Zofran] 4 mg PO Q8HR PRN #20 tab 08/15/24 Rx Allergies Allergy/AdvReac Type Severity Reaction Status Date / Time enoxaparin sodium Allergy Nausea & Verified 08/12/24 09:51 [From Lovenox] Vomiting & Diarrhea,muscle aches and pains lisinopril Allergy Unknown Verified 08/14/24 11:12 methocarbamol [From Robaxin] Allergy leg Verified 08/12/24 09:51 cramps,diarrhea warfarin sodium Allergy Nausea & Verified 08/12/24 09:51 [From Coumadin] Vomiting & Diarrhea,dehydration [id number] Reductase AdvReac Severe MUSCLE Verified 08/12/24 09:51 Inhibitor SPASMS IN [Kysqxbc-Aze-Raj Reductase LEGS Inhibitor] losartan AdvReac congestion, Verified 08/12/24 09:52 headache meloxicam [From Mobic] AdvReac ELEV LIVER Verified 08/12/24 09:51 ENZYMES (AVOIDS "ARTHRITIC" RX) NSAIDS (Non-Steroidal AdvReac elevates Verified 08/12/24 09:53 Anti-Inflamma liver enzymes losartan Allergy congestion, Uncoded 08/12/24 09:53 headache Physical Exam Vitals: Vital Signs Temp Pulse Resp BP Pulse Ox 08/15/24 06:45 98.2 F 78 19 109/53 96 08/15/24 01:33 97.8 F 72 15 138/68 97 08/14/24 19:53 97.9 F 61 16 150/67 98 08/14/24 18:42 70 164/70 99 08/14/24 18:27 66 157/75 97 08/14/24 18:11 76 166/77 99 08/14/24 17:57 69 154/66 99 08/14/24 17:05 62 16 130/62 99 08/14/24 16:50 62 16 125/58 99 08/14/24 16:35 67 18 155/67 99 08/14/24 16:20 82 18 166/70 97 08/14/24 16:05 76 18 144/67 97 08/14/24 15:50 97.6 F 85 16 142/65 96 Intake and Output 08/14/24 08/15/24 08/15/24 22:59 06:59 14:59 Intake Total 300 Output Total 100 400 Balance 200 -400 Intake: IV 300 Output: Urine 400 Estimated Blood Loss 100 Other: # Voids 3 Weight 58.6 kg Results CBC & Chem 7: 08/15/24 05:50 Labs: Abnormal Lab Results - Last 24 Hours (Table) 08/14/24 08/15/24 08/15/24 Range/Units 20:36 05:50 06:08 WBC 15.58 H (4.50-10.00) X 10*3/uL RBC 3.20 L (4.10-5.20) X 10*6/uL Hgb 10.0 L (12.0-15.0) g/dL Hct 31.8 L (37.2-46.3) % MCV 99.4 H (80.0-97.0) FL MCHC 31.4 L (32.0-37.0) g/dL Immature Gran # 0.07 H (0.00-0.04) X 10*3/uL Neutrophils # 11.95 H (1.80-7.70) X 10*3/uL Monocytes # 1.73 H (0.20-1.00) X 10*3/uL Eosinophils # 0 L (0.04-0.35) X 10*3/uL POC Glucose (mg/dL) 171 H 170 H (70-110) mg/dL // Range/Units 12:06 WBC (4.50-10.00) X 10*3/uL RBC (4.10-5.20) X 10*6/uL Hgb (12.0-15.0) g/dL Hct (37.2-46.3) % MCV (80.0-97.0) FL MCHC (32.0-37.0) g/dL Immature Gran # (0.00-0.04) X 10*3/uL Neutrophils # (1.80-7.70) X 10*3/uL Monocytes # (0.20-1.00) X 10*3/uL Eosinophils # (0.04-0.35) X 10*3/uL POC Glucose (mg/dL) 201 H (70-110) mg/dL
--- NOTE | 2024-08-15 15:04 | P.DS ---
Providers Date of admission: 08/14/24 Attending physician: Kenney Parrish Consults: 08/14/24 17:33 Consult Physician Routine Consulting Provider: Adelina Gorman Consult Reason/Comments: post op medical management Do you want consulting provider notified?: Yes Primary care physician: Marshall Ajith [facility] Course: Admitted yesterday after elective JULIO C. Was seen this morning. Did well with PT and patient and family requested d/c home today. Patient Condition at Discharge: Good Plan - Discharge Summary Discharge Rx Participant: No New Discharge Prescriptions: New Docusate [Colace] 100 mg PO BID #30 capsule HYDROcodone/APAP 5-325MG [[place] 5-325] 1 - 2 tab PO Q6HR PRN #24 tab PRN Reason: Pain Ondansetron [Zofran] 4 mg PO Q8HR PRN #20 tab PRN Reason: Nausea Aspirin 81 mg PO BID #60 tab Omeprazole [PriLOSEC] 40 mg PO DAILY #30 cap Continue Vitamin E 400 unit PO DAILY Cholecalciferol [Vitamin D3 (25 Mcg = 1000 Iu)] 5,000 unit PO DAILY Multivitamins, Thera [Multivitamin (formulary)] 1 tab PO DAILY Atenolol/Chlorthalidone [Atenolol/Chlorthalidone 50-25] 0.5 tab PO DAILY Acetaminophen Tab [Tylenol] 1,000 mg PO Q6HR PRN PRN Reason: Pain allopurinoL [Zyloprim] 300 mg PO HS Donepezil [Aricept] 5 mg PO QAM Empagliflozin [Jardiance] 25 mg PO DAILY Prasterone (Dhea) [Dhea] 50 mg PO DAILY Discontinued Aspirin 81 mg PO DAILY Discharge Medication List Atenolol/Chlorthalidone [Atenolol/Chlorthalidone 50-25] 0.5 tab PO DAILY 08/29/15 [History] Cholecalciferol [Vitamin D3 (25 Mcg = 1000 Iu)] 5,000 unit PO DAILY 08/29/15 [History] Multivitamins, Thera [Multivitamin (formulary)] 1 tab PO DAILY 08/29/15 [History] Vitamin E 400 unit PO DAILY 08/29/15 [History] Acetaminophen Tab [Tylenol] 1,000 mg PO Q6HR PRN 09/17/16 [History] allopurinoL [Zyloprim] 300 mg PO HS 02/25/20 [History] Donepezil [Aricept] 5 mg PO QAM 08/12/24 [History] Empagliflozin [Jardiance] 25 mg PO DAILY 08/12/24 [History] Prasterone (Dhea) [Dhea] 50 mg PO DAILY 08/12/24 [History] Aspirin 81 mg PO BID #60 tab 08/15/24 [Rx] Docusate [Colace] 100 mg PO BID #30 capsule 08/15/24 [Rx] HYDROcodone/APAP 5-325MG [[place] 5-325] 1 - 2 tab PO Q6HR PRN #24 tab 08/15/24 [Rx] Omeprazole [PriLOSEC] 40 mg PO DAILY #30 cap 08/15/24 [Rx] Ondansetron [Zofran] 4 mg PO Q8HR PRN #20 tab 08/15/24 [Rx] Follow up Appointment(s)/Referral(s): [facility] [NON-STAFF] - As Needed (delvered walker to room, any questions please call agency. ) Kenney Parrish MD [Medical Doctor] - 2 Weeks Activity/Diet/Wound Care/Special Instructions: 1. Weight-bear as tolerated on your operative extremity unless instructed otherwise. Use a walker or other assistive device to ambulate. 2. Leave surgical dressing in place. If your dressing becomes saturated with blood, there is drainage, or the dressing becomes loose please contact the office. 3. It is okay to shower with your surgical dressing, but do not submerge in water (no hot tubs, bath's, swimming etc.) 4. Make sure to take her blood clot prevention medication as prescribed (aspirin, Eliquis, Xarelto, and Plavix are commonly prescribed medications for blood clot prevention) 5. While taking [place] or Percocet for pain make sure you're taking a stool softener (Colace) and drink lots of water. 6. Keep all follow-up appointments as scheduled. You will usually be seen in 1-2 weeks following surgery. 7. Please contact the office with any questions or concerns [phone] Discharge Disposition: HOME WITH HOME HEALTH SERVICES
--- NOTE | 2024-08-16 17:13 | P.ANPRN ---
Procedure Note - Anesthesia - Nerve Block Performed Right [place] Single Time Out Performed: Yes Date of Procedure: 08/14/24 Procedure Start Time: 12:32 Procedure Stop Time: 12:36 Location of Patient: PreOp Indication: Acute Post-Operative Pain, Requested by Surgeon Sedation Type: Sedate with meaningful contact maintained Preparation: Sterile Prep Position: Supine Needle Types: [place] Needle Gauge: 21 Ultrasound used to visualize needle placement: Yes Ultrasound used to observe medication spread: Yes Blood Aspirated: No Pain Paresthesia on Injection Noted: No Resistance on Injection: Normal Image Stored and Saved: Yes Events: Uneventful and Well Tolerated (Ropivacaine 0.5% 20 cc plus dexamethasone 4 mg)
== END 2024-08-15 16:30 | disposition home health service (06) ==
LOC: OR 10:28 → 4SSUR 17:02 → OR 08-15 16:30
PROVIDERS: ATTEND Orthopaedic Surgery
DX: M16.11 Unilateral primary osteoarthritis, right hip (principal); I10 Essential (primary) hypertension; E78.5 Hyperlipidemia, unspecified; E11.9 Type 2 diabetes mellitus without complications; Z86.73 Personal history of transient ischemic attack (TIA), and cerebral infarction without residual deficits; Z90.49 Acquired absence of other specified parts of digestive tract; Z90.710 Acquired absence of both cervix and uterus; Z96.653 Presence of artificial knee joint, bilateral; Z87.891 Personal history of nicotine dependence; Z96.641 Presence of right artificial hip joint; Z82.3 Family history of stroke; Z88.8 Allergy status to other drugs, medicaments and biological substances; Z88.6 Allergy status to analgesic agent; Z79.82 Long term (current) use of aspirin; Z79.84 Long term (current) use of oral hypoglycemic drugs; Z79.899 Other long term (current) drug therapy
CPT/HCPCS: 97116; 97162; 85025 ×2; 73501; 27130; 64473; J0171; J2250; J1100; J0690 ×2; J2405; J3490; J1171; J2175

== ENCOUNTER 2024-08-22 06:51 | Emergency (ER) | payer MEDICARE ==
[2024-08-22] MEDS: ONDANSETRON 4 MG/2 ML VIAL IVP STA (07:54)
[2024-08-22] MEDS: KETOROLAC 15 MG/ML 1 ML VIAL IVP STA (07:54)
[2024-08-22] MEDS: LACTATED RINGERS 1,000 ML IV ONE (07:55)
--- NOTE | 2024-08-22 08:16 | ED ---
General Adult HPI - General Chief complaint: Abdominal Pain Stated complaint: NVD Time Seen by Provider: 08/22/24 07:15 Source: patient, RN notes reviewed, old records reviewed Mode of arrival: ambulatory Limitations: no limitations - History of Present Illness Initial comments: This is an 84-year-old female who presents to the emergency department 1 week postop from hip surgery. Patient states she was taking narcotics initially and it is constipating her. Patient states she been constipated for 1 week. Patient states now she is extremely nauseated and cannot even keep water down. Patient has diffuse abdominal tenderness. Patient denies any fever or chills. Patient has back pain patient [place] dysuria hematuria urinary frequency. - Related Data Home Medications Medication Instructions Recorded Confirmed Atenolol/Chlorthalidone 0.5 tab PO DAILY 08/29/15 08/12/24 [Atenolol/Chlorthalidone 50-25] Cholecalciferol [Vitamin D3 (25 5,000 unit PO DAILY 08/29/15 08/12/24 Mcg = 1000 Iu)] Multivitamins, Thera [Multivitamin 1 tab PO DAILY 08/29/15 08/12/24 (formulary)] Vitamin E 400 unit PO DAILY 08/29/15 08/12/24 Acetaminophen Tab [Tylenol] 1,000 mg PO Q6HR PRN 09/17/16 08/14/24 allopurinoL [Zyloprim] 300 mg PO HS 02/25/20 08/14/24 Donepezil [Aricept] 5 mg PO QAM 08/12/24 08/12/24 Empagliflozin [Jardiance] 25 mg PO DAILY 08/12/24 08/14/24 Prasterone (Dhea) [Dhea] 50 mg PO DAILY 08/12/24 08/12/24 Previous Rx's Medication Instructions Recorded Aspirin 81 mg PO BID #60 tab 08/15/24 Docusate [Colace] 100 mg PO BID #30 capsule 08/15/24 HYDROcodone/APAP 5-325MG [[place] 1 - 2 tab PO Q6HR PRN #24 tab 08/15/24 5-325] Omeprazole [PriLOSEC] 40 mg PO DAILY #30 cap 08/15/24 Ondansetron [Zofran] 4 mg PO Q8HR PRN #20 tab 08/15/24 Allergies Allergy/AdvReac Type Severity Reaction Status Date / Time enoxaparin sodium Allergy Nausea & Verified 08/22/24 07:21 [From Lovenox] Vomiting & Diarrhea,muscle aches and pains lisinopril Allergy Unknown Verified 08/22/24 07:21 methocarbamol [From Robaxin] Allergy leg Verified 08/22/24 07:21 cramps,diarrhea warfarin sodium Allergy Nausea & Verified 08/22/24 07:21 [From Coumadin] Vomiting & Diarrhea,dehydration Vcqgedp-LOP-PhG Reductase AdvReac Severe MUSCLE Verified 08/22/24 07:21 Inhibitor SPASMS IN [Jpffmbp-Xgn-Fgh Reductase LEGS Inhibitor] losartan AdvReac congestion, Verified 08/22/24 07:21 headache meloxicam [From Mobic] AdvReac ELEV LIVER Verified 08/22/24 07:21 ENZYMES (AVOIDS "ARTHRITIC" RX) NSAIDS (Non-Steroidal AdvReac elevates Verified 08/22/24 07:21 Anti-Inflamma liver enzymes losartan Allergy congestion, Uncoded 08/22/24 07:21 headache Review of Systems ROS Statement: Those systems with pertinent positive or pertinent negative responses have been documented in the HPI. ROS Other: All systems not noted in ROS Statement are negative. 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 Hx Collapse Lung r/t Whooping Cough as a child, AND FREQ PNEUMONIA. HX SKIN CA NOSE. MARIA L EAR TINNITUS. MINOR VARICOSE VEIN. RECENT ABN STRESS TEST (FOR PRE-OP CLEARANCE). HAIRLINE FX LT LATERAL ANKLE, WEARING BOOT SINCE 07/2016. History of Any Multi-Drug Resistant Organisms: None Reported Past Surgical History: Back Surgery, Section, Cholecystectomy, Ear Surgery, Heart Catheterization, Hysterectomy, Joint Replacement Additional Past Surgical History / Comment(s): TOTAL Lt Knee, LT HIP Replacement. Lt Carotid ENDARTERECTOMY. CARDIAC CATH X2. BRONCHOSCOPY YEARS AGO. BMT. Colonscopies. left shoulder surgery, back surgery Past Anesthesia/Blood Transfusion Reactions: No Reported Reaction Past Psychological History: No Psychological Hx Reported Smoking Status: Never smoker - Past Family History Father Family Medical History: Liver Disease Mother Family Medical History: CVA/TIA Brother(s) Family Medical History: Cancer, Deep Vein Thrombosis (DVT) Additional Family Medical History / Comment(s): 1/2 BROTHER Sister(s) Family Medical History: Cancer Additional Family Medical History / Comment(s): X2 SISTERS General Exam - General Exam Comments Initial Comments: GENERAL: Patient is well-developed and well-nourished. Patient is nontoxic and well- hydrated and is in mild distress. ENT: Neck is soft and supple. No significant lymphadenopathy is noted. Oropharynx is clear. Moist mucous membranes. Neck has full range of motion without eliciting any pain. EYES: The sclera were anicteric and conjunctiva were pink and moist. Extraocular movements were intact and pupils were equal round and reactive to light. Eyelids were unremarkable. PULMONARY: Unlabored respirations. Good breath sounds bilaterally. No audible rales rhonchi or wheezing was noted. CARDIOVASCULAR: There is a regular rate and rhythm without any murmurs gallops or rubs. ABDOMEN: Diffuse abdominal pain SKIN: Skin is clear with no lesions or rashes and otherwise unremarkable. NEUROLOGIC: Patient is alert and oriented x3. Cranial nerves II through XII are grossly intact. Motor and sensory are also intact. Normal speech, volume and content. Symmetrical smile. MUSCULOSKELETAL: Normal extremities with adequate strength and full range of motion. No lower extremity swelling or edema. No calf tenderness. LYMPHATICS: No significant lymphadenopathy is noted PSYCHIATRIC: Normal psychiatric evaluation. Limitations: no limitations Course Vital Signs 08/22/24 08/22/24 08/22/24 07:16 07:41 09:46 Temperature 98.5 F Pulse Rate 90 83 73 Respiratory 18 18 18 Rate Blood Pressure 148/88 147/64 138/62 O2 Sat by Pulse 96 95 96 Oximetry 08/22/24 08/22/24 10:33 12:07 Temperature Pulse Rate 78 81 Respiratory 18 18 Rate Blood Pressure 152/69 O2 Sat by Pulse 99 94 L Oximetry Medical Decision Making - Medical Decision Making Was pt. sent in by a medical professional or institution (, PA, ORTHOPEDIC SHOES SALESPERSON, urgent care, hospital, or care home...) When possible be specific @ -No Did you speak to anyone other than the patient for history (EMS, parent, family, police, friend...)? What history was obtained from this source @ -No Did you review nursing and triage notes (agree or disagree)? Why? @ -I reviewed and agree with nursing and triage notes Were old charts reviewed (outside hosp., previous admission, EMS record, old EKG, old radiological studies, urgent care reports/EKG's, care home records)? Report findings @ -No old charts were reviewed Differential Diagnosis? @ -Differential Abdominal Pain Women: Appendicitis, Cholecystitis, diverticulosis, ischemic bowel, pancreatitis, hepatitis, UTI, gastroenteritis, AAA, incarcerated hernia, bowel obstruction, co nstipation, inflammatory bowel, hepatitis, peptic ulcer disease, splenic infarction, perforated viscus, vulvitis, ovarian torsion, PID, kidney stone, placenta abruption, this is not meant to be an all-inclusive list EKG interpreted by me (3pts min.). @ -As above X-rays interpreted by me (1pt min.). @ -None done CT interpreted by me (1pt min.). @ -CT of the abdomen pelvis shows some constipation hematoma of the psoas muscle I spoke with the radiologist he did not think it was an abscess. Patient did have full range of motion of that leg without any pain. U/S interpreted by me (1pt. min.). @ -None done What testing was considered but not performed or refused? (CT, X-rays, U/S, labs)? Why? @ -None What meds were considered but not given or refused? Why? @ -None Did you discuss the management of the patient with other professionals (professionals i.e. , PA, ORTHOPEDIC SHOES SALESPERSON, lab, RT, psych nurse, social media executive, corporate lawyer, teacher, state patrol officer, comp field case manager)? Give summary @ -No Was smoking cessation discussed for >3mins.? @ -No Was critical care preformed (if so, how long)? @ -No Were there social determinants of health that impacted care today? How? (Homelessness, low income, unemployed, alcoholism, drug addiction, transportation, low edu. Level, literacy, decrease access to med. care, fci, rehab)? @ -No Was there de-escalation of care discussed even if they declined (Discuss DNR or withdrawal of care, Hospice)? DNR status @ -No What co-morbidities impacted this encounter? (DM, HTN, Smoking, COPD, CAD, Cancer, CVA, ARF, Chemo, Hep., AIDS, mental health diagnosis, sleep apnea, morbid obesity)? @ -None Was patient admitted / discharged? Hospital course, mention meds given and route, prescriptions, significant lab abnormalities, going to OR and other pertinent info. @ -Patient was given an enema and was feeling considerably better she was also given 2 L of fluid. Undiagnosed new problem with uncertain prognosis? @ -No Drug Therapy requiring intensive monitoring for toxicity (Heparin, Nitro, Insulin, Cardizem)? @ -No Were any procedures done? @ -No Diagnosis/symptom? @ -Constipation Acute, or Chronic, or Acute on Chronic? @ -Acute Uncomplicated (without systemic symptoms) or Complicated (systemic symptoms)? @ -Complicated Side effects of treatment? @ -No Exacerbation, Progression, or Severe Exacerbation? @ -No Poses a threat to life or bodily function? How? (Chest pain, USA, CT, pneumonia, PE, COPD, DKA, ARF, appy, cholecystitis, CVA, Diverticulitis, Homicidal, Suicidal, threat to staff... and all critical care pts) @ -No Diagnosis/symptom? @ -Hematoma psoas muscle Acute, or Chronic, or Acute on Chronic? @ -Acute Uncomplicated (without systemic symptoms) or Complicated (systemic symptoms)? @ -Complicated Side effects of treatment? @ -None Exacerbation, Progression, or Severe Exacerbation] @ -No Poses a threat to life or bodily function? @ -No - Lab Data Result diagrams: 08/22/24 07:50 08/22/24 07:50 Lab Results 08/22/24 08/22/24 08/22/24 Range/Units 07:50 07:50 10:15 WBC 19.47 H (4.50-10.00) 10*3/uL RBC 3.97 L (4.10-5.20) 10*6/uL Hgb 12.4 (12.0-15.0) g/dL Hct 36.5 L (37.2-46.3) % MCV 91.9 (80.0-97.0) fL MCH 31.2 (27.0-32.0) pg MCHC 34.0 (32.0-37.0) g/dL Plt Count 343 (140-440) 10*3/uL MPV 10.1 (9.5-12.2) fL Immature Gran % (Auto) 0.6 % Neutrophils % 72.5 % Lymphocytes % 11.4 % Monocytes % 14.8 % Eosinophils % 0.3 % Basophils % 0.4 % Immature Gran # 0.12 H (0.00-0.04) 10*3/uL Neutrophils # 14.11 H (1.80-7.70) 10*3/uL Lymphocytes # 2.22 (0.90-5.00) 10*3/uL Monocytes # 2.88 H (0.20-1.00) 10*3/uL Eosinophils # 0.06 (0.04-0.35) 10*3/uL Basophils # 0.08 (0.00-0.10) 10*3/uL Sodium 134 L (137-145) mmol/L Potassium 4.0 (3.5-5.1) mmol/L Chloride 93 L (98-107) mmol/L Carbon Dioxide 31 H (22-30) mmol/L Anion Gap 10 mmol/L BUN 39 H (7-17) mg/dL Creatinine 0.99 (0.52-1.04) mg/dL Est GFR (CKD-EPI)AfAm 61 (>60 ml/min/1.73 sqM) Est GFR (CKD-EPI)NonAf 53 (>60 ml/min/1.73 sqM) Glucose 117 H (74-99) mg/dL Plasma Lactic Acid Topher 1.4 (0.7-2.0) mmol/L Calcium 9.3 (8.4-10.2) mg/dL Total Bilirubin 0.7 (0.2-1.3) mg/dL AST 47 H (14-36) U/L ALT 45 H (4-34) U/L Alkaline Phosphatase 146 H (38-126) U/L Total Protein 6.4 (6.3-8.2) g/dL Albumin 3.7 (3.5-5.0) g/dL Amylase 34 (30-110) U/L Lipase 44 (23-300) U/L Urine Color Urine Appearance (Clear) Urine pH (5.0-8.0) Ur Specific [place] (1.001-1.035) Urine Protein (Negative) Urine Glucose (UA) (Negative) Urine Ketones (Negative) Urine Blood (Negative) Urine Nitrite (Negative) Urine Bilirubin (Negative) Urine Urobilinogen (<2.0) mg/dL Ur Leukocyte Esterase (Negative) Urine RBC (0-5) /hpf Urine WBC (0-5) /hpf Ur Squamous Epith Cells (0-4) /hpf Hyaline Casts (0-2) /lpf Urine Mucus (None) /hpf 08/22/24 Range/Units 10:36 WBC (4.50-10.00) 10*3/uL RBC (4.10-5.20) 10*6/uL Hgb (12.0-15.0) g/dL Hct (37.2-46.3) % MCV (80.0-97.0) fL MCH (27.0-32.0) pg MCHC (32.0-37.0) g/dL Plt Count (140-440) 10*3/uL MPV (9.5-12.2) fL Immature Gran % (Auto) % Neutrophils % % Lymphocytes % % Monocytes % % Eosinophils % % Basophils % % Immature Gran # (0.00-0.04) 10*3/uL Neutrophils # (1.80-7.70) 10*3/uL Lymphocytes # (0.90-5.00) 10*3/uL Monocytes # (0.20-1.00) 10*3/uL Eosinophils # (0.04-0.35) 10*3/uL Basophils # (0.00-0.10) 10*3/uL Sodium (137-145) mmol/L Potassium (3.5-5.1) mmol/L Chloride (98-107) mmol/L Carbon Dioxide (22-30) mmol/L Anion Gap mmol/L BUN (7-17) mg/dL Creatinine (0.52-1.04) mg/dL Est GFR (CKD-EPI)AfAm (>60 ml/min/1.73 sqM) Est GFR (CKD-EPI)NonAf (>60 ml/min/1.73 sqM) Glucose (74-99) mg/dL Plasma Lactic Acid Topher (0.7-2.0) mmol/L Calcium (8.4-10.2) mg/dL Total Bilirubin (0.2-1.3) mg/dL AST (14-36) U/L ALT (4-34) U/L Alkaline Phosphatase (38-126) U/L Total Protein (6.3-8.2) g/dL Albumin (3.5-5.0) g/dL Amylase (30-110) U/L Lipase (23-300) U/L Urine Color Light Yellow Urine Appearance Clear (Clear) Urine pH 5.0 (5.0-8.0) Ur Specific [place] 1.050 H (1.001-1.035) Urine Protein Trace H (Negative) Urine Glucose (UA) 2+ H (Negative) Urine Ketones Trace H (Negative) Urine Blood Trace H (Negative) Urine Nitrite Negative (Negative) Urine Bilirubin Negative (Negative) Urine Urobilinogen <2.0 (<2.0) mg/dL Ur Leukocyte Esterase Negative (Negative) Urine RBC 2 (0-5) /hpf Urine WBC 5 (0-5) /hpf Ur Squamous Epith Cells 2 (0-4) /hpf Hyaline Casts 1 (0-2) /lpf Urine Mucus Rare H (None) /hpf Disposition Clinical Impression: Constipation, Abdominal pain, Nontraumatic psoas hematoma Disposition: HOME SELF-CARE Condition: Good Instructions (If sedation given, give patient instructions): Abdominal Pain (ED), Constipation (ED), High Fiber Diet (ED) Is patient prescribed a controlled substance at d/c from ED?: No Referrals: Marshall Canseco DO [Primary Care Provider] - 1-2 days Time of Disposition: 12:36
[2024-08-22 08:19] LABS: Basophils # (A) 0.08 10*3/uL (0.00-0.10); Basophils % (A) 0.4 %; Eosinophils # (A) 0.06 10*3/uL (0.04-0.35); Eosinophils % (A) 0.3 %; HCT 36.5 % (37.2-46.3); HGB 12.4 g/dL (12.0-15.0); Lymphocytes # (A) 2.22 10*3/uL (0.90-5.00); Lymphocytes % (A) 11.4 %; MCH 31.2 pg (27.0-32.0); MCV 91.9 fL (80.0-97.0); Mean Platelet Volume 10.1 fL (9.5-12.2); Monocytes # (A) 2.88 10*3/uL (0.20-1.00); Monocytes % (A) 14.8 %; Neutrophils # (A) 14.11 10*3/uL (1.80-7.70); Neutrophils % (A) 72.5 %; Platelet Count 343 10*3/uL (140-440); RBC 3.97 10*6/uL (4.10-5.20); RDW 13.3 % (11.5-14.5); WBC 19.47 10*3/uL (4.50-10.00)
--- NOTE | 2024-08-22 08:19 | XR ---
EXAMINATION TYPE: XR KUB DATE OF EXAM: 08/22/2024 8:13 AM COMPARISON: None. CLINICAL INDICATION: Female, 84 years old with history of abdominal pain, TECHNIQUE: XR KUB view(s) obtained. FINDINGS: There is a nonspecific bowel gas pattern. No suspicious air-fluid levels or differential air-fluid le vels evident. No free air is evident. Psoas margins are normal. No organomegaly is present. Scoliosis is present within the lumbar spine. Bilateral hip prostheses are present. Small left pleural effusion may be present IMPRESSION: 1. Nonspecific abdomen. 2. Small left pleural effusion [facility], , 08/22/2024 8:17 AM
[2024-08-22 08:23] LABS: ALT 45 U/L (4-34); AST 47 U/L (14-36); African American GFR (CKD) 61 (>60 ml/min/1.73 sqM); Albumin 3.7 g/dL (3.5-5.0); Alkaline Phosphatase 146 U/L (38-126); Amylase 34 U/L (30-110); Anion Gap 10 mmol/L; Blood Urea Nitrogen 39 mg/dL (7-17); Calcium 9.3 mg/dL (8.4-10.2); Carbon Dioxide 31 mmol/L (22-30); Chloride 93 mmol/L (98-107); Glucose 117 mg/dL (74-99); Lipase 44 U/L (23-300); Non-African American GFR(CKD) 53 (>60 ml/min/1.73 sqM); Sodium 134 mmol/L (137-145); Total Bilirubin 0.7 mg/dL (0.2-1.3); Total Protein 6.4 g/dL (6.3-8.2)
--- NOTE | 2024-08-22 10:46 | CT ---
EXAMINATION TYPE: CT abdomen pelvis w con DATE OF EXAM: 08/22/2024 10:06 AM COMPARISON: 08/14/2024 right hip, MRI abdomen 07/13/2023 CLINICAL INDICATION: Female, 84 years old with history of Abdominal pain, ABD PAIN TECHNIQUE: Axial images were obtained from above the diaphragm to the pubic rami in the axial plane a t 5 mm thick sections. Reconstructed images are reviewed on the computer in the coronal plane. CONTRAST: 80 mL of Isovue 300. Study performed without Oral Contrast DLP: 669.1 mGycm, Automated exposure control for dose reduction was used. FINDINGS: Limited CT sections are obtained the lung bases. Lung bases are clear.. CT ABDOMEN: Liver: Normal Spleen: Normal Pancreas: Normal Adrenal glands: The adrenal glands are normal. Gallbladder: Surgically absent Kidneys: No masses are evident. No hydronephrosis is present. Cortical renal cyst on the posterior inferior left kidney better visualized on delayed images. This measures 1.7 cm Delayed images were o btained through the kidneys, which remain unremarkable. Aorta: Vascular calcification is within the aorta. Inferior vena cava: Normal. CT PELVIS: There is thickening along the distal psoas muscle within the left hemipelvis. This measure s 5.9 cm. Correlate for psoas muscle hematoma. Follow-up recommended. Underlying mass is not excluded . Loops of bowel within the abdomen and pelvis are normal. Diverticulosis without acute diverticulitis is present within the sigmoid colon This study is without oral contrast limiting bowel evaluation. Appendix: Normal as visualized. Urinary bladder: Normal. Genitourinary structures: Uterus and ovaries are not identified. Lower pelvis is limited due to bilat eral hip prostheses. There is some air anterior within the subcutaneous tissues of the right hip. The re is some fluid anterior to the hip prosthesis. Findings could be compatible with recent surgery Osseous structures: No suspicious lytic or sclerotic lesions. IMPRESSION: 1. 5.9 cm hypodensity within the left hemipelvis psoas muscle most likely related to hematoma. Follo w-up recommended. 2. Postsurgical changes anterior right hip. 3. Diverticulosis without acute diverticulitis. [facility], Workstation: [id number], 08/22/2024 10:44 AM
[2024-08-22 10:53] LABS: Appearance,Urine Clear (Clear); Bilirubin,Urine Negative (Negative); Blood,Urine Trace (Negative); Color,Urine Light Yellow; Glucose,Urine (UA) 2+ (Negative); Hyaline Casts,Urine 1 /lpf (0-2); Ketones,Urine Trace (Negative); Leukocyte Esterase,Urine Negative (Negative); Mucus,Urine Rare /hpf; Nitrite,Urine Negative (Negative); Protein,Urine Trace (Negative); RBC,Urine 2 /hpf (0-5); Squamous Epithelial Cell,Urine 2 /hpf (0-4); Urobilinogen,Urine <2.0 mg/dL (<2.0); WBC,Urine 5 /hpf (0-5)
[2024-08-22] MEDS: SODIUM CHLORIDE 0.9% 1,000 ML IV ONE (12:09)
[2024-08-22] MEDS: ONDANSETRON 4 MG ODT STARTER PACK 2 TAB BTL PO STA (13:17)
[2024-08-22 13:28] VITALS: BP 148/73; PULSE 72; RESP 20; TEMP 97
== END 2024-08-22 13:28 | disposition home or self-care (01) ==
LOC: EC 06:51
DX: K59.00 Constipation, unspecified (principal); M79.81 Nontraumatic hematoma of soft tissue; Z88.6 Allergy status to analgesic agent; Z88.8 Allergy status to other drugs, medicaments and biological substances
CPT/HCPCS: 99285; 96374; 96375; 96361 ×2; 36415; 80053; 82150; 83605; 83690; 85025; 81001; 87040; 74018; 74177; J2405; J1885; S0119; Q9967

== ENCOUNTER → 2024-09-23 | Outpatient (CLI) | payer MEDICARE ==
--- NOTE | 2024-09-23 13:54 | US ---
EXAMINATION TYPE: US carotid duplex BILAT DATE OF EXAM: 09/23/2024 COMPARISON: CLINICAL INDICATION: Female, 84 years old with history of I65.23 CAROTID STENOSIS; Hx TIA. Hx left c arotid endarterectomy. Additional History: R09.89 Carotid bruit TECHNIQUE: Grayscale, color Doppler and spectral Doppler evaluation of the bilateral carotid systems and vertebral arteries. Indirect Doppler criteria was utilized. FINDINGS: EXAM MEASUREMENTS: RIGHT: Peak Systolic Velocity (PSV) cm/sec ----- Right CCA: 73.5 ----- Right ICA: 188.2 ----- Right ECA: 155.4 ICA/CCA ratio: 2.6 RIGHT: End Diastole cm/sec ----- Right CCA: 17.5 ----- Right ICA: 45.9 ----- Right ECA: 0.0 LEFT: Peak Systolic Velocity (PSV) cm/sec ----- Left CCA: 88.6 ----- Left ICA: 164.7 ----- Left ECA: 112.9 ICA/CCA ratio: 1.9 LEFT: End Diastole cm/sec ----- Left CCA: 14.9 ----- Left ICA: 32.3 ----- Left ECA: 0.0 VERTEBRALS (direction of flow): Right Vertebral: Antegrade Left Vertebral: Antegrade Rhythm: Normal ENVIRONMENTAL SERVICES WORKER NOTES: Bilateral wall thickening. Plaque seen bilaterally, left greater than right. Yen vated velocity right bulb, right ECA and left distal ICA velocities Color Doppler imaging shows patency with blood flow throughout the carotid artery. Spectral waveforms are within normal limits. IMPRESSION: Measurements suggest a moderate (50-69%) right ICA stenosis. No hemodynamically significant internal carotid artery stenosis on either side. Criteria for Assigning % of Stenosis / Diameter reduction (Estimation based on the indirect measurements of the internal carotid artery velocities (ICA PSV). 1. Normal (no stenosis)=ICA PSV < 180 cm/s: ratio < 2.0: ICA EDV<40 cm/s. 2. Less than 50% stenosis=ICA PSV < 180 cm/s: ratio < 2.0: ICA EDV<40 cm/s. 3. 50 to 69% stenosis=ICA PSV of 180 to 230 cm/s: ration 2.0 ? 4.0: ICA EDV 40-100 cm/s. PSV 125-180 cm/sec and ICA/CCA PSV Ratio ? 2.0 is also consistent with 50-69% stenosis 4. Greater than 70% stenosis to near occlusion= ICA PSV > 230 cm/s: ratio > 4.0: ICA EDV > 100 cm/s. 5. Near occlusion= ICA PSV velocities may be low or undetectable: variable ratio and ICA EDV. 6. Total occlusion=unable to detect flow. [facility], , 09/23/2024 1:52 PM
[2024-09-23 15:36] LABS: ALT 16 U/L (8-44); AST 27 U/L (13-35); Blood Urea Nitrogen 40.2 mg/dL (9.0-27.0); Carbon Dioxide 26.7 mmol/L (21.6-31.8); Chloride 105 mmol/L (96-109); Chol/HDL Ratio 3.02 Ratio; LDL Cholesterol,Calculated 117.3 mg/dL (0.0-131.0); Potassium 4.6 mmol/L (3.5-5.5); Sodium 145 mmol/L (135-145)
== END | disposition home or self-care (01) ==
LOC: RADUSWWP 08:21
PROVIDERS: ATTEND Internal Medicine Cardiovascular Disease
DX: I65.23 Occlusion and stenosis of bilateral carotid arteries (principal); R09.89 Other specified symptoms and signs involving the circulatory and respiratory systems; I10 Essential (primary) hypertension; E55.9 Vitamin D deficiency, unspecified; E78.2 Mixed hyperlipidemia; R06.02 Shortness of breath; E72.10 Disorders of sulfur-bearing amino-acid metabolism, unspecified; R73.01 Impaired fasting glucose; Z71.2 Person consulting for explanation of examination or test findings
CPT/HCPCS: 80051; 80061; 82306; 82565; 84450; 84460; 84520; 86141; 93880

== ENCOUNTER 2024-10-27 04:41 | Inpatient (IN) | payer MEDICARE ==
--- NOTE | 2024-10-27 05:19 | ED ---
Abdominal Pain HPI - General Source: patient, EMS Mode of arrival: EMS Limitations: no limitations - History of Present Illness MD Complaint: flank pain -: days(s) Location: L flank Radiation: none Migration to: no migration Severity: severe Quality: other Consistency: intermittent Improves With: nothing Worsens With: nothing <Harley Gonzalez - Last Filed: 10/27/24 06:48> <Otis Hernandez - Last Filed: 10/27/24 08:45> - General Chief Complaint: Abdominal Pain Stated Complaint: NV, abd pain Time Seen by Provider: 10/27/24 04:59 - History of Present Illness Initial Comments: This patient is an 84-year-old woman who presents to have evaluation for pains through the back and flanks. She notes that on she had pain in the right back she described it as being episodic and sharp. Since that time she has subsequently developed left flank pain. Patient now was not able to characterize the pain well. She states that it is worse with movements, sometimes with palpation. She has not noted any associated symptoms. (Trena Gonzalez [facility]) - Related Data Home Medications Medication Instructions Recorded Confirmed Atenolol/Chlorthalidone 0.5 tab PO DAILY 08/29/15 08/12/24 [Atenolol/Chlorthalidone 50-25] Cholecalciferol [Vitamin D3 (25 5,000 unit PO DAILY 08/29/15 08/12/24 Mcg = 1000 Iu)] Multivitamins, Thera [Multivitamin 1 tab PO DAILY 08/29/15 08/12/24 (formulary)] Vitamin E 400 unit PO DAILY 08/29/15 08/12/24 Acetaminophen Tab [Tylenol] 1,000 mg PO Q6HR PRN 09/17/16 08/14/24 allopurinoL [Zyloprim] 300 mg PO HS 02/25/20 08/14/24 Donepezil [Aricept] 5 mg PO QAM 08/12/24 08/12/24 Empagliflozin [Jardiance] 25 mg PO DAILY 08/12/24 08/14/24 Prasterone (Dhea) [Dhea] 50 mg PO DAILY 08/12/24 08/12/24 Previous Rx's Medication Instructions Recorded Aspirin 81 mg PO BID #60 tab 08/15/24 Docusate [Colace] 100 mg PO BID #30 capsule 08/15/24 HYDROcodone/APAP 5-325MG [Walsh 1 - 2 tab PO Q6HR PRN #24 tab 08/15/24 5-325] Omeprazole [PriLOSEC] 40 mg PO DAILY #30 cap 08/15/24 Ondansetron [Zofran] 4 mg PO Q8HR PRN #20 tab 08/15/24 Allergies Allergy/AdvReac Type Severity Reaction Status Date / Time enoxaparin sodium Allergy Nausea & Verified 10/27/24 04:47 [From Lovenox] Vomiting & Diarrhea,muscle aches and pains lisinopril Allergy Unknown Verified 10/27/24 04:47 methocarbamol [From Robaxin] Allergy leg Verified 10/27/24 04:47 cramps,diarrhea warfarin sodium Allergy Nausea & Verified 10/27/24 04:47 [From Coumadin] Vomiting & Diarrhea,dehydration Hojyufc-TEL-IlC Reductase AdvReac Severe MUSCLE Verified 10/27/24 04:47 Inhibitor SPASMS IN [Hbfiqlf-Cur-Jhy Reductase LEGS Inhibitor] losartan AdvReac congestion, Verified 10/27/24 04:47 headache meloxicam [From Mobic] AdvReac ELEV LIVER Verified 10/27/24 04:47 ENZYMES (AVOIDS "ARTHRITIC" RX) NSAIDS (Non-Steroidal AdvReac elevates Verified 10/27/24 04:47 Anti-Inflamma liver enzymes losartan Allergy congestion, Uncoded 10/27/24 04:47 headache Review of Systems ROS Other: All systems not noted in ROS Statement are negative. Constitutional: Denies: fever, chills, weakness Respiratory: Denies: cough, dyspnea Cardiovascular: Denies: chest pain, palpitations, edema Gastrointestinal: Reports: as per HPI, abdominal pain, nausea, vomiting, constipation. Denies: diarrhea, melena, hematochezia Genitourinary: Denies: dysuria, hematuria Musculoskeletal: Reports: back pain Skin: Denies: rash Neurological: Denies: headache, weakness <Harley Gonzalez - Last Filed: 10/27/24 06:48> ROS Other: All systems not noted in ROS Statement are negative. <Otis Hernandez - Last Filed: 10/27/24 08:45> ROS Statement: Those systems with pertinent positive or pertinent negative responses have been documented in the HPI. 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 Hx Collapse Lung r/t Whooping Cough as a child, AND FREQ PNEUMONIA. HX SKIN CA NOSE. MARIA L EAR TINNITUS. MINOR VARICOSE VEIN. RECENT ABN STRESS TEST (FOR PRE-OP CLEARANCE). HAIRLINE FX LT LATERAL ANKLE, WEARING BOOT SINCE 07/2016. History of Any Multi-Drug Resistant Organisms: None Reported Past Surgical History: Back Surgery, Section, Cholecystectomy, Ear Surgery, Heart Catheterization, Hysterectomy, Joint Replacement Additional Past Surgical History / Comment(s): TOTAL Lt Knee, LT HIP Replacement. Lt Carotid ENDARTERECTOMY. CARDIAC CATH X2. BRONCHOSCOPY YEARS AGO. BMT. Colonscopies. left shoulder surgery, back surgery, RT Hip rep lacement Past Anesthesia/Blood Transfusion Reactions: No Reported Reaction Past Psychological History: No Psychological Hx Reported Smoking Status: Never smoker Past Alcohol Use History: Rare Past Drug Use History: None Reported - Past Family History Father Family Medical History: Liver Disease Mother Family Medical History: CVA/TIA Brother(s) Family Medical History: Cancer, Deep Vein Thrombosis (DVT) Additional Family Medical History / Comment(s): 1/2 BROTHER Sister(s) Family Medical History: Cancer Additional Family Medical History / Comment(s): X2 SISTERS <Harley Gonzalez - Last Filed: 10/27/24 06:48> General Exam Limitations: no limitations General appearance: alert, in no apparent distress Head exam: Present: atraumatic, normocephalic Eye exam: Present: normal appearance. Absent: scleral icterus, conjunctival injection ENT exam: Present: normal oropharynx Neck exam: Present: normal inspection Respiratory exam: Present: normal lung sounds bilaterally. Absent: respiratory distress, wheezes, rales, rhonchi, stridor, accessory muscle use Cardiovascular Exam: Present: regular rate, normal rhythm, normal heart sounds, systolic murmur GI/Abdominal exam: Present: soft, tenderness. Absent: distended, guarding, rebound, rigid, mass, pulsatile mass Extremities exam: Present: normal inspection, normal capillary refill. Absent: pedal edema, calf tenderness Back exam: Present: normal inspection, CVA tenderness (R), CVA tenderness (L), paraspinal tenderness. Absent: vertebral tenderness Neurological exam: Present: alert. Absent: motor sensory deficit Skin exam: Present: warm, dry, intact, normal color. Absent: rash <ChristianHarley amin - Last Filed: 10/27/24 06:48> Course Vital Signs 10/27/24 10/27/24 04:42 06:00 Temperature 97.9 F Pulse Rate 81 77 Respiratory 22 18 Rate Blood Pressure 159/76 113/59 O2 Sat by Pulse 97 97 Oximetry Medical Decision Making - Lab Data Result diagrams: 10/27/24 05:15 10/27/24 05:15 - EKG Data -: EKG Interpreted by Me EKG shows normal: sinus rhythm, intervals (OH interval 191 ms, QTc 438 ms, both normal. QRS duration 144 ms prolonged consistent with left bundle branch.), QRS complexes (Left axis deviation) Rate: normal (Rate 71 bpm) <ChristianeloisaHarley - Last Filed: 10/27/24 06:48> - Lab Data Result diagrams: 10/27/24 05:15 10/27/24 05:15 <Otis Hernandez - Last Filed: 10/27/24 08:45> - Medical Decision Making Patient signed to me pending results of CT. Presents for intractable abdominal pain. Also has some back involvement. As it has been ongoing since last . Labs so far relatively unremarkable. CT imaging as interpreted by myself reveals no obvious acute intra-abdominal process other than a left-sided psoas muscle hematoma. Slightly larger than on prior study from August 2024. I discussed with the patient and she is still having pain. We will admit the patient to observation for intractable abdominal pain. Consult will be placed to patient's surgeon, Dr. Ross who reviewed imaging and I spoke with and he was in agreement the plan. I spoke with the admitting team, [facility] Evans who accepted the admission. Diagnosis/symptom? @ -Intractable abdominal pain of unknown etiology, psoas muscle hematoma Acute, or Chronic, or Acute on Chronic? @ -Acute Uncomplicated (without systemic symptoms) or Complicated (systemic symptoms)? @ -Uncomplicated Side effects of treatment? @ -None Exacerbation, Progression, or Severe Exacerbation] @ -No Poses a threat to life or bodily function? @ -Yes (Otis Hernandez) - Lab Data Lab Results 10/27/24 10/27/24 10/27/24 Range/Units 05:15 05:15 05:15 WBC 11.52 H (4.50-10.00) 10*3/uL RBC 4.24 (4.10-5.20) 10*6/uL Hgb 11.8 L (12.0-15.0) g/dL Hct 36.9 L (37.2-46.3) % MCV 87.0 (80.0-97.0) fL MCH 27.8 (27.0-32.0) pg MCHC 32.0 (32.0-37.0) g/dL Plt Count 375 (140-440) 10*3/uL MPV 10.2 (9.5-12.2) fL Immature Gran % (Auto) 0.3 % Neutrophils % 71.2 % Lymphocytes % 18.0 % Monocytes % 7.7 % Eosinophils % 2.0 % Basophils % 0.8 % Immature Gran # 0.03 (0.00-0.04) 10*3/uL Neutrophils # 8.21 H (1.80-7.70) 10*3/uL Lymphocytes # 2.07 (0.90-5.00) 10*3/uL Monocytes # 0.89 (0.20-1.00) 10*3/uL Eosinophils # 0.23 (0.04-0.35) 10*3/uL Basophils # 0.09 (0.00-0.10) 10*3/uL Sodium 141 (137-145) mmol/L Potassium 3.8 (3.5-5.1) mmol/L Chloride 101 (98-107) mmol/L Carbon Dioxide 27 (22-30) mmol/L Anion Gap 13 mmol/L BUN 49 H (7-17) mg/dL Creatinine 1.03 (0.52-1.04) mg/dL Est GFR (CKD-EPI)AfAm 58 (>60 ml/min/1.73 sqM) Est GFR (CKD-EPI)NonAf 50 (>60 ml/min/1.73 sqM) Glucose 150 H (74-99) mg/dL Plasma Lactic Acid Topher 1.1 (0.7-2.0) mmol/L Calcium 10.1 (8.4-10.2) mg/dL Total Bilirubin 0.5 (0.2-1.3) mg/dL AST 30 (14-36) U/L ALT 19 (4-34) U/L Alkaline Phosphatase 141 H (38-126) U/L Total Protein 7.2 (6.3-8.2) g/dL Albumin 4.4 (3.5-5.0) g/dL Amylase 55 (30-110) U/L Lipase 109 (23-300) U/L Disposition <Harley Gonzalez - Last Filed: 10/27/24 06:48> Time of Disposition: 08:45 <Otis Hernandez - Last Filed: 10/27/24 08:45> Clinical Impression: Intractable abdominal pain, Hematoma of muscle Disposition: ADMITTED IP TO THIS [facility] Condition: Stable Referrals: Marshall Canseco DO [Primary Care Provider] - 1-2 days
[2024-10-27] MEDS: MORPHINE SULFATE 4 MG/ML SYRINGE IV STA (05:39)
[2024-10-27 05:40] LABS: Basophils # (A) 0.09 10*3/uL (0.00-0.10); Basophils % (A) 0.8 %; Eosinophils # (A) 0.23 10*3/uL (0.04-0.35); HCT 36.9 % (37.2-46.3); HGB 11.8 g/dL (12.0-15.0); Lymphocytes # (A) 2.07 10*3/uL (0.90-5.00); MCH 27.8 pg (27.0-32.0); Mean Platelet Volume 10.2 fL (9.5-12.2); Monocytes # (A) 0.89 10*3/uL (0.20-1.00); Monocytes % (A) 7.7 %; Neutrophils # (A) 8.21 10*3/uL (1.80-7.70); Neutrophils % (A) 71.2 %; Platelet Count 375 10*3/uL (140-440); RBC 4.24 10*6/uL (4.10-5.20); RDW 14.9 % (11.5-14.5); WBC 11.52 10*3/uL (4.50-10.00)
[2024-10-27 05:55] LABS: ALT 19 U/L (4-34); AST 30 U/L (14-36); African American GFR (CKD) 58 (>60 ml/min/1.73 sqM); Albumin 4.4 g/dL (3.5-5.0); Alkaline Phosphatase 141 U/L (38-126); Amylase 55 U/L (30-110); Anion Gap 13 mmol/L; Blood Urea Nitrogen 49 mg/dL (7-17); Calcium 10.1 mg/dL (8.4-10.2); Carbon Dioxide 27 mmol/L (22-30); Chloride 101 mmol/L (98-107); Glucose 150 mg/dL (74-99); Lipase 109 U/L (23-300); Non-African American GFR(CKD) 50 (>60 ml/min/1.73 sqM); Potassium 3.8 mmol/L (3.5-5.1); Sodium 141 mmol/L (137-145); Total Bilirubin 0.5 mg/dL (0.2-1.3); Total Protein 7.2 g/dL (6.3-8.2)
--- NOTE | 2024-10-27 07:57 | CT ---
EXAMINATION TYPE: CT abdomen pelvis wo con DATE OF EXAM: 10/27/2024 7:27 AM COMPARISON: 08/22/2024 CLINICAL INDICATION: Female, 84 years old with history of flank pain, left sided abd pain x 1 week W vomiting TECHNIQUE: Axial images were obtained from above the diaphragm to the pubic rami in the axial plane a t 5 mm thick sections. Reconstructed images are reviewed on the computer in the coronal plane. CONTRAST: mL of . Study performed without Oral Contrast DLP: 575.6 mGycm, Automated exposure control for dose reduction was used. FINDINGS: Limited CT sections are obtained the lung bases. The lung bases are clear. No suspicious lung base findings CT ABDOMEN: Liver: Normal Spleen: Normal Pancreas: Normal Adrenal glands: The adrenal glands are normal. Gallbladder: Surgically absent Kidneys: No masses are evident. No hydronephrosis is present. No cysts are present. No renal stone s. Aorta: Vascular calcification is within the aorta. Inferior vena cava: Normal. CT PELVIS: Lower pelvis is limited with a marking artifact from bilateral hip prostheses. Within the left hemipelvis adjacent to the ileum there is a 7.2 x 6.2 density. This has internal calc ifications and some internal increased signal. This is present previously measuring 5.9 cm. Continued follow-up recommended Loops of bowel within the abdomen and pelvis are normal. Multiple diverticula are scattered through the sigmoid colon. This study is without oral contrast limiting bowel evaluation. Appendix: Normal as visualized. Urinary bladder: Normal. Genitourinary structures: Uterus and ovaries are not identified Osseous structures: No suspicious lytic or sclerotic lesions. IMPRESSION: 1. Left hemipelvis hematoma slightly larger in comparison. [facility], , 10/27/2024 7:55 AM
[2024-10-27] MEDS ORDERED: NALOXONE 0.4 MG/ML 1 ML VIAL IV PRN (08:30)
[2024-10-27] MEDS: PANTOPRAZOLE 40 MG/10 ML VIAL IV SCH (08:57)
--- NOTE | 2024-10-27 11:07 | P.GSCN ---
History of Present Illness Consult date: 10/27/24 History of present illness: CHIEF COMPLAINT: Abdominal pain HISTORY OF PRESENT ILLNESS: This is a 84-year-old female who presented with abdominal pain and back pain. Patient reports the pain is on the left side of the abdomen under the rib cage and in the left back. Patient reports pain started 5 days ago. Patient reports that she has history of constipation. She has been constipated over the last 3 days she was able to have a small bowel movement yesterday. She did have 1 episode of vomiting a small amount yesterday that after drinking water and taking Tylenol. She had a CT scan abdomen pelvis that reported a left hemipelvis hematoma that was slightly larger in size from CAT scan in August. Patient reports only being on aspirin otherwise denies any blood thinners. She reports 5 days ago she had been at physical therapy and had been doing new exercises. But she does not recall actually injuring herself. She denies any falling. She denies any trauma to that left side. Hemoglobin stable at 11.8. PAST MEDICAL HISTORY: See below PAST SURGICAL HISTORY: See below MEDICATIONS: See below ALLERGIES: See below SOCIAL HISTORY: No illicit drug use. REVIEW OF SYSTEMS: CONSTITUTIONAL: Denies fever or chills. HEENT: Denies blurred vision, vision changes, or eye pain. Denies hemoptysis CARDIOVASCULAR: Denies chest pain or pressure. RESPIRATORY: No shortness of breath. GASTROINTESTINAL: See HPI for pertinent findings HEMATOLOGIC: Denies bleeding disorders. GENITOURINARY: Denies any blood in urine or increased urinary frequency. SKIN: Denies pruitis. Denies rash. PHYSICAL EXAM: VITAL SIGNS: Reviewed GENERAL: Well-developed in no acute distress. HEENT: No sclera icterus. Extraocular movements grossly intact. Moist buccal mucosa. Head is atraumatic, normocephalic. No nasal drainage. ABDOMEN: Soft. Nondistended. Tenderness palpation left side of the abdomen and under the left rib cage. Tenderness left flank and back. No ecchymosis noted. NEUROLOGIC: Alert and oriented. Cranial nerves II through XII grossly intact. LABORATORY DATA: WBC 11.52 Hgb 11.8 platelets 375 Sodium is 141 potassium 3.8 creatinine 1.03 Lactic acid 1.1 IMAGING: CT scan abdomen pelvis reports left hemipelvis hematoma slightly larger in com parison ASSESSMENT: 1. Left hemipelvis hematoma slightly larger in comparison to CT scan in August. Patient denies any injury. She denies being on any blood thinners PLAN: - Continue supportive care - Pain management - Regular diet - Repeat hemoglobin in a.m. - No surgical intervention Physician News Operations Manager note has been reviewed by physician. Signing provider agrees with the documented findings, assessment, and plan of care. I have personally seen and examined the patient, reviewed the POULTRY FARM MANAGER /PAs history, exam and MDM and agree with the assessment and plan as written. Based on total visit time, I have performed more than 50% of the visit. As above: Patient presents with abdominal discomfort. Seem to start on the right side of the abdomen and then moved across to the left upper quadrant. She points beneath her left costal margin. Ribs themselves are nontender. Nothing on CAT scan to explain the discomfort in that location. She does have an area of swelling involving the left psoas muscle. This measures about 6 cm in width. This was present back in August and is slightly larger now. Can scan dating back to 2011 also showed a hypodensity within the left psoas measuring about 2 to 3 cm. Etiology unclear. Malignant nature unlikely. There is some hyperdensity on these 2 recent CAT scans. Could represent hemorrhage into that area. Patient is not taking any anticoagulation and no history of trauma. Further workup with MRI would be an option. This can certainly be performed in the outpatient setting. I do not believe this is causing the patient's current discomfort. She is tolerating her diet. Would repeat labs tomorrow. Continue regular diet for now. If tolerating diet and pain improved would be comfortable with discharge and outpatient follow-up. 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 Hx Collapse Lung r/t Whooping Cough as a child, AND FREQ PNEUMONIA. HX SKIN CA NOSE. MARIA L EAR TINNITUS. MINOR VARICOSE VEIN. RECENT ABN STRESS TEST (FOR PRE-OP CLEARANCE). HAIRLINE FX LT LATERAL ANKLE, WEARING BOOT SINCE 07/2016. History of Any Multi-Drug Resistant Organisms: None Reported Past Surgical History: Back Surgery, Section, Cholecystectomy, Ear Surgery, Heart Catheterization, Hysterectomy, Joint Replacement Additional Past Surgical History / Comment(s): TOTAL Lt Knee, LT HIP Replacement. Lt Carotid ENDARTERECTOMY. CARDIAC CATH X2. BRONCHOSCOPY YEARS AGO. BMT. Colonscopies. left shoulder surgery, back surgery, RT Hip replacement Past Anesthesia/Blood Transfusion Reactions: No Reported Reaction Past Psychological History: No Psychological Hx Reported Smoking Status: Never smoker Past Alcohol Use History: Rare Additional Past Alcohol Use History / Comment(s): Quit Smoking 1995, Smoked 30 yrs, <1ppd Past Drug Use History: None Reported - Past Family History Father Family Medical History: Liver Disease Mother Family Medical History: CVA/TIA Brother(s) Family Medical History: Cancer, Deep Vein Thrombosis (DVT) Additional Family Medical History / Comment(s): 1/2 BROTHER Sister(s) Family Medical History: Cancer Additional Family Medical History / Comment(s): X2 SISTERS Medications and Allergies Home Medications Medication Instructions Recorded Confirmed Type Multivitamins, Thera [Multivitamin 1 tab PO DAILY 08/29/15 10/27/24 History (formulary)] allopurinoL [Zyloprim] 300 mg PO HS 02/25/20 10/27/24 History Donepezil [Aricept] 5 mg PO DAILY 08/12/24 10/27/24 History Empagliflozin [Jardiance] 25 mg PO DAILY 08/12/24 10/27/24 History Aspirin 81 mg PO BID #60 tab 08/15/24 10/27/24 Rx Omeprazole [PriLOSEC] 40 mg PO DAILY #30 cap 08/15/24 10/27/24 Rx Ondansetron [Zofran] 4 mg PO Q8HR PRN #20 tab 08/15/24 10/27/24 Rx Gabapentin [Neurontin] 100 mg PO BID 10/27/24 10/27/24 History Temazepam [Restoril] 15 mg PO HS PRN 10/27/24 10/27/24 History Umeclidinium Brm/Vilanterol Tr 1 puff INHALATION RT-DAILY 10/27/24 10/27/24 History [Anoro Ellipta 62.5-25 Mcg INH] atenoloL [Tenormin] 12.5 mg PO DAILY 10/27/24 10/27/24 History Allergies Allergy/AdvReac Type Severity Reaction Status Date / Time enoxaparin sodium Allergy Nausea & Verified 10/27/24 09:47 [From Lovenox] Vomiting & Diarrhea,muscle aches and pains lisinopril Allergy Unknown Verified 10/27/24 09:47 methocarbamol [From Robaxin] Allergy leg Verified 10/27/24 09:47 cramps,diarrhea warfarin sodium Allergy Nausea & Verified 10/27/24 09:47 [From Coumadin] Vomiting & Diarrhea,dehydration Gnmqtxl-OYN-LsY Reductase AdvReac Severe MUSCLE Verified 10/27/24 09:47 Inhibitor SPASMS IN [Zdalyds-Olr-Mfc Reductase LEGS Inhibitor] losartan AdvReac congestion, Verified 10/27/24 09:47 headache meloxicam [From Mobic] AdvReac ELEV LIVER Verified 10/27/24 09:47 ENZYMES (AVOIDS "ARTHRITIC" RX) NSAIDS (Non-Steroidal AdvReac elevates Verified 10/27/24 09:47 Anti-Inflamma liver enzymes losartan Allergy congestion, Uncoded 10/27/24 09:47 headache Surgical - Exam Vital Signs Temp Pulse Resp BP Pulse Ox 97.9 F 81 22 159/76 97 10/27/24 04:42 10/27/24 04:42 10/27/24 04:42 10/27/24 04:42 10/27/24 04:42 Results - Labs 10/27/24 05:15 10/27/24 05:15 Abnormal Lab Results - Last 24 Hours (Table) 10/27/24 10/27/24 Range/Units 05:15 05:15 WBC 11.52 H (4.50-10.00) 10*3/uL Hgb 11.8 L (12.0-15.0) g/dL Hct 36.9 L (37.2-46.3) % Neutrophils # 8.21 H (1.80-7.70) 10*3/uL BUN 49 H (7-17) mg/dL Glucose 150 H (74-99) mg/dL Alkaline Phosphatase 141 H (38-126) U/L Diabetes panel 10/27/24 Range/Units 05:15 Sodium 141 (137-145) mmol/L Potassium 3.8 (3.5-5.1) mmol/L Chloride 101 (98-107) mmol/L Carbon Dioxide 27 (22-30) mmol/L BUN 49 H (7-17) mg/dL Creatinine 1.03 (0.52-1.04) mg/dL Glucose 150 H (74-99) mg/dL Calcium 10.1 (8.4-10.2) mg/dL AST 30 (14-36) U/L ALT 19 (4-34) U/L Alkaline Phosphatase 141 H (38-126) U/L Total Protein 7.2 (6.3-8.2) g/dL Albumin 4.4 (3.5-5.0) g/dL Calcium panel 10/27/24 Range/Units 05:15 Calcium 10.1 (8.4-10.2) mg/dL Albumin 4.4 (3.5-5.0) g/dL Pituitary panel 10/27/24 Range/Units 05:15 Sodium 141 (137-145) mmol/L Potassium 3.8 (3.5-5.1) mmol/L Chloride 101 (98-107) mmol/L Carbon Dioxide 27 (22-30) mmol/L BUN 49 H (7-17) mg/dL Creatinine 1.03 (0.52-1.04) mg/dL Glucose 150 H (74-99) mg/dL Calcium 10.1 (8.4-10.2) mg/dL Adrenal panel 10/27/24 Range/Units 05:15 Sodium 141 (137-145) mmol/L Potassium 3.8 (3.5-5.1) mmol/L Chloride 101 (98-107) mmol/L Carbon Dioxide 27 (22-30) mmol/L BUN 49 H (7-17) mg/dL Creatinine 1.03 (0.52-1.04) mg/dL Glucose 150 H (74-99) mg/dL Calcium 10.1 (8.4-10.2) mg/dL Total Bilirubin 0.5 (0.2-1.3) mg/dL AST 30 (14-36) U/L ALT 19 (4-34) U/L Alkaline Phosphatase 141 H (38-126) U/L Total Protein 7.2 (6.3-8.2) g/dL Albumin 4.4 (3.5-5.0) g/dL
[2024-10-27] MEDS: KETOROLAC 15 MG/ML 1 ML VIAL IVP PRN (11:40)
[2024-10-27] MEDS ORDERED: TEMAZEPAM 15 MG CAP PO PRN (12:18)
[2024-10-27] MEDS ORDERED: ONDANSETRON ODT 4 MG TAB PO PRN (12:18)
--- NOTE | 2024-10-27 13:06 | HP ---
HISTORY AND PHYSICAL CHIEF COMPLAINT: Left-sided abdominal pain. HISTORY OF PRESENT ILLNESS: This is an 84-year-old woman who recently had a right hip arthroplasty on August 14, was complaining of left-sided abdominal pain. The patient apparently started new physical therapy exercise. The pain is felt in the left side of the abdomen. The patient was on baby aspirin and the patient had a CT scan of the abdomen on August 22, which shows left pelvic hematoma, possibly psoas. Currently, the hematoma is slightly increased in size with some internal , also is quite spherical in nature. There is no history of fever, rigors, or chills at this time. No history of obvious trauma. PAST MEDICAL HISTORY: Reviewed include history of CVA, TIA, GERD, hypertension, hyperlipidemia, history of pneumonia, and history of skin cancer. Rest of history and the chart is also reviewed. HOME MEDICATIONS: Reviewed include zyloprim. Doses and rest of medications noted. ALLERGIES: Noted include Lovenox. FAMILY HISTORY: History of liver disease in the family. SOCIAL HISTORY: Quit smoking. REVIEW OF SYSTEMS: A 14-point review of systems negative except as mentioned earlier. PHYSICAL EXAMINATION: VITAL SIGNS: Pulse is 70, blood pressure is 104/80, respirations 18. HEENT: Conjunctivae normal. NECK: No JVD. CARDIOVASCULAR: S1, S2. RESPIRATIONS: Breath sounds are diminished in the bases. ABDOMEN: Soft, minimal diffuse tenderness on the left-sided abdomen. No guarding. No rigidity. No mass palpable. LEGS: No edema. NERVOUS SYSTEM: Nonfocal. LABORATORY DATA: Reviewed. ASSESSMENT: 1. Left-sided abdominal pain with left-sided pelvic hematoma, possibly psoas hematoma, rule out other masses. 2. History of degenerative joint disease and right hip arthroplasty recently. 3. History of hypertension. 4. Hyperlipidemia. 5. History of skin cancer. 6. Multiple complex medical issues. RECOMMENDATIONS AND DISCUSSION: This 84-year-old woman presented with multiple complex medical issues. Recommend to continue current management. Surgery has been consulted. The exact etiology of the mass lesion is unknown at this time. Continue to monitor. Resume the home medications once they are confirmed. Guarded prognosis, because of multiple complex medical issues. Further recommendations to follow. See orders for further details. Hold off any antiplatelet agents for now, because of concerns of hematoma. DVT prophylaxis. I would also recommend a bone scan also. MMODL / IJN: [id number] / JACQUIE
--- NOTE | 2024-10-27 13:19 | XR ---
EXAMINATION TYPE: XR chest 1V portable DATE OF EXAM: 10/27/2024 1:06 PM COMPARISON: Chest radiographs from 03/19/2022. CLINICAL INDICATION: Female, 84 years old with history of chf; TECHNIQUE: XR chest 1V portable Frontal view of the chest. FINDINGS: Lungs/Pleura: There is no evidence of pleural effusion, focal consolidation, or pneumothorax. Pulmonary vascularity: Unremarkable. Heart/mediastinum: Cardiomediastinal silhouette is unremarkable. Musculoskeletal: No acute osseous pathology. Left shoulder arthroplasty appears intact. IMPRESSION: Cardiomegaly and mild pulmonary vascular congestion. Correlate with BNP for congestive heart failure. [facility], , 10/27/2024 1:17 PM
[2024-10-27] MEDS: allopurinoL 300 MG TAB PO SCH (20:06)
[2024-10-27] MEDS: ONDANSETRON 4 MG/2 ML VIAL IVP PRN (20:06)
[2024-10-27] MEDS: GABAPENTIN 100 MG CAP PO SCH (20:06)
[2024-10-27] MEDS: DOCUSATE 100 MG CAP PO PRN (21:48)
[2024-10-27 22:54] LABS: Appearance,Urine Clear (Clear); Bacteria,Urine Rare /hpf; Bilirubin,Urine Negative (Negative); Blood,Urine Negative (Negative); Color,Urine Yellow; Glucose,Urine (UA) 2+ (Negative); Hyaline Casts,Urine 7 /lpf (0-2); Ketones,Urine Negative (Negative); Leukocyte Esterase,Urine Small (Negative); Mucus,Urine Rare /hpf; Nitrite,Urine Negative (Negative); Protein,Urine Negative (Negative); RBC,Urine 1 /hpf (0-5); Specific Gravity,Urine 1.023 (1.001-1.035); Squamous Epithelial Cell,Urine 3 /hpf (0-4); Urobilinogen,Urine <2.0 mg/dL (<2.0); WBC,Urine 7 /hpf (0-5)
[2024-10-28 05:52] LABS: Basophils # (A) 0.08 10*3/uL (0.00-0.10); Basophils % (A) 0.7 %; HCT 35.1 % (37.2-46.3); HGB 10.7 g/dL (12.0-15.0); Lymphocytes # (A) 3.76 10*3/uL (0.90-5.00); Lymphocytes % (A) 32.2 %; MCH 27.3 pg (27.0-32.0); MCHC 30.5 g/dL (32.0-37.0); MCV 89.5 fL (80.0-97.0); Mean Platelet Volume 9.8 fL (9.5-12.2); Monocytes # (A) 1.62 10*3/uL (0.20-1.00); Monocytes % (A) 13.9 %; Neutrophils # (A) 5.49 10*3/uL (1.80-7.70); Platelet Count 322 10*3/uL (140-440); RBC 3.92 10*6/uL (4.10-5.20); RDW 15.1 % (11.5-14.5); WBC 11.67 10*3/uL (4.50-10.00)
[2024-10-28 06:29] LABS: ALT 16 U/L (4-34); AST 28 U/L (14-36); African American GFR (CKD) 37 (>60 ml/min/1.73 sqM); Albumin 3.9 g/dL (3.5-5.0); Alkaline Phosphatase 119 U/L (38-126); Anion Gap 10 mmol/L; Blood Urea Nitrogen 56 mg/dL (7-17); Calcium 10.1 mg/dL (8.4-10.2); Carbon Dioxide 28 mmol/L (22-30); Chloride 100 mmol/L (98-107); Glucose 93 mg/dL (74-99); Non-African American GFR(CKD) 32 (>60 ml/min/1.73 sqM); Potassium 4.9 mmol/L (3.5-5.1); Sodium 138 mmol/L (137-145); Total Bilirubin 0.4 mg/dL (0.2-1.3); Total Protein 6.4 g/dL (6.3-8.2)
[2024-10-28] MEDS: MULTIVITAMINS, THERA 1 EACH TAB PO SCH (08:42)
[2024-10-28] MEDS: DAPAGLIFLOZIN PROPANEDIOL 10 MG TABLET PO SCH (08:43)
[2024-10-28] MEDS: DONEPEZIL 5 MG TAB PO SCH (08:43)
[2024-10-28] MEDS ORDERED: NON FORMULARY DRUG (Omeprazole 40 MG Capsule.Dr) PO SCH (09:00)
[2024-10-28] MEDS: ACETAMINOPHEN TAB 325 MG TAB PO PRN (09:12)
[2024-10-28 09:25] LABS: INR 0.9 (<1.2); Partial Thromboplastin Time 20.8 sec (22.0-30.0); Prothrombin Time 10.1 sec (10.0-12.5)
[2024-10-28] MEDS: FORMOTEROL FUMARATE 20 MCG/2 ML NEBU INHALATION SCH (09:28)
[2024-10-28] MEDS: TIOTROPIUM 2.5 MCG INHALER INHALATION SCH (09:29)
[2024-10-28] MEDS: polyethylene glycoL 3350 17 GM POWD.PACK PO SCH (11:50)
--- NOTE | 2024-10-28 13:15 | PN ---
PROGRESS NOTE DATE OF SERVICE: 10/28/2024 SUBJECTIVE: 84-year-old woman is admitted with abdominal pain pelvic hematoma. The patient is closely monitored. No chest pain, no palpitation. OBJECTIVE: VITAL SIGNS: Pulse is 78, blood pressure 110/66, and respirations 17. CHEST: Clear to auscultation. CARDIOVASCULAR: S1, S2. ABDOMEN: Soft. LABORATORY DATA: Noted. Creatinine 1.51. ASSESSMENT: 1. Left-sided abdominal pain with left-sided pelvic hematoma, possibly psoas hematoma, rule out other masses. 2. History of degenerative joint disease and right hip arthroplasty recently. 3. Hypertension. 4. Hyperlipidemia. 5. History of skin cancer. 6. Multiple complex medical issues. RECOMMENDATION: Recommend to continue current medications. Otherwise, I would recommend symptomatic treatment. Creatinine has worsened. I would recommend to avoid Toradol. Repeat labs. IV fluids. Guarded prognosis. Further recommendations to follow. MMODL / IJN: [id number] / MTDTosin
--- NOTE | 2024-10-28 14:35 | NM ---
EXAMINATION TYPE: NM bone scan whole body DATE OF EXAM: 10/28/2024 1:42 PM CLINICAL INDICATION:Female, 84 years old with history of left pelvic lesion; COMPARISON: CT 10/27/2024. 04/21/2024. TECHNIQUE: Intravenous administration 25.4 mCi Tc 99m MDP followed by multiple scintigraphic images o f the appendicular and axial skeleton. Small [id number] planar ARM chest and pelvis imaging was pr ovided. Images acquired 3 hours post injection. FINDINGS: Suspected normal physiologic uptake around the right hip arthroplasty. Arthroplasty of the left have also present with less uptake. Uptake in the spine has increased compared to prior on 04/21/2024. Mul tilevel uptake at multiple levels in the spine suggestive of compression fracture and degeneration. A rtifact seen within the left arm There is increased uptake within the bilateral shoulder, sternoclavi cular, and sacroiliac joints and ankles consistent with degenerative changes. No other photopenic ar eas or areas of increased activity are identified. Physiologic radiotracer activity is demonstrated in the kidneys and bladder. No uptake to suggest metastatic disease. IMPRESSION: 1. Uptake throughout the spine likely on a degenerative and/or compression fracture bases. Consider MRI lumbar spine and thoracic spine for complete evaluation a nonemergent basis. 2. No significant uptake within the left pelvis near this possible hematoma and/or complex joint eff usion which could be expected extending from the left hip. [facility], , 10/28/2024 2:33 PM
[2024-10-28] MEDS: SODIUM CHLORIDE 0.9% 1,000 ML IV SCH (15:22)
--- NOTE | 2024-10-29 05:06 | PN ---
PROGRESS NOTE DATE OF SERVICE: 10/28/2024 CHIEF COMPLAINT: Abdominal pain. HISTORY OF PRESENT ILLNESS: The patient continues to report abdominal pain, mostly on the left side of the abdomen, under the left ribcage, and is now back to having pain under the right rib cage. She does have pain also in the left back. She denies any nausea or vomiting. She was able to tolerate diet. She reports no bowel movement for 4 days. She is scheduled for a bone scan today. PHYSICAL EXAMINATION: VITAL SIGNS: Stable. ABDOMEN: Tenderness with palpation under the left rib and right rib, and along the left flank. LABORATORY DATA: WBC is about the same at 11.6 and hemoglobin 10.7. ASSESSMENT: 1. Abdominal pain. 2. Left psoas hematoma. 3. Constipation. PLAN: MiraLax added for constipation. Consult physical therapy to help ambulate patient. Continue pain management. Continue regular diet and we will follow up on bone scan results. MMODL / IJN: [id number] /
[2024-10-29 06:10] LABS: Basophils # (A) 0.07 10*3/uL (0.00-0.10); Basophils % (A) 0.8 %; Eosinophils % (A) 6.5 %; HCT 33.2 % (37.2-46.3); HGB 10.4 g/dL (12.0-15.0); Lymphocytes # (A) 3.26 10*3/uL (0.90-5.00); Lymphocytes % (A) 35.3 %; MCH 27.7 pg (27.0-32.0); MCHC 31.3 g/dL (32.0-37.0); MCV 88.5 fL (80.0-97.0); Mean Platelet Volume 10.3 fL (9.5-12.2); Monocytes # (A) 1.15 10*3/uL (0.20-1.00); Monocytes % (A) 12.5 %; Neutrophils # (A) 4.14 10*3/uL (1.80-7.70); Neutrophils % (A) 44.8 %; Platelet Count 313 10*3/uL (140-440); RBC 3.75 10*6/uL (4.10-5.20); WBC 9.23 10*3/uL (4.50-10.00)
[2024-10-29 06:29] LABS: African American GFR (CKD) 58 (>60 ml/min/1.73 sqM); Anion Gap 6 mmol/L; Blood Urea Nitrogen 41 mg/dL (7-17); Calcium 9.9 mg/dL (8.4-10.2); Carbon Dioxide 30 mmol/L (22-30); Chloride 100 mmol/L (98-107); Glucose 89 mg/dL (74-99); Non-African American GFR(CKD) 50 (>60 ml/min/1.73 sqM); Potassium 4.3 mmol/L (3.5-5.1); Sodium 136 mmol/L (137-145)
[2024-10-29] MEDS: LACTULOSE 20 GM/30 ML CUP PO ONE (11:52)
[2024-10-29] MEDS ORDERED: traMADol 50 MG TAB PO PRN (12:05)
[2024-10-29] MEDS: KETOROLAC 15 MG/ML 1 ML VIAL IVP PRN (12:17)
--- NOTE | 2024-10-29 12:23 | P.CNOR ---
History of Present Illness - HPI Consult date: 10/29/24 Consult reason: other (Left flank pain) History of present illness: Patient is a pleasant 84-year-old female who is known to our office. She presented to the hospital regards to left flank pain. She had undergone a right total hip arthroplasty in August of this year. She says that she had that has done very well. She says her right hip is feeling great and she had been cleared by physical therapy. She said that she was finishing therapy last week and on she was doing some exercises. She says that since she has been feeling worsening pain in her left flank. She says the pain feels like it is just the side of her lower back at her lower ribs and extends around her her flank towards the front of her ribs. She denies any specific injury. She denies any fall or trauma. She had been doing exercises regularly with physical therapy but did not have anything specifically different. She does have history of compression fractures at her back in the past. She says that she she had been treated for those with bracing in the past and had done well. She denies any changes with her urination. She denies any burning or frequency. She denies any fevers or chills. She denies any lower extremity radiculopathy. She denies any numbness tingling in her lower extremities. She denies any new hip pain. Review of Systems As stated per HPI. She denies any nausea or vomiting. She denies any fevers or chills. 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 Hx Collapse Lung r/t Whooping Cough as a child, AND FREQ PNEUMONIA. HX SKIN CA NOSE. MARIA L EAR TINNITUS. MINOR VARICOSE VEIN. RECENT ABN STRESS TEST (FOR PRE-OP CLEARANCE). HAIRLINE FX LT LATERAL ANKLE, WEARING BOOT SINCE 07/2016. Recent right total hip arthroplasty in August of this year which reportedly had done well, history of compression fractures at her back chronically History of Any Multi-Drug Resistant Organisms: None Reported Past Surgical History: Back Surgery, Section, Cholecystectomy, Ear Surgery, Heart Catheterization, Hysterectomy, Joint Replacement Additional Past Surgical History / Comment(s): TOTAL Lt Knee, LT HIP Replacement. Lt Carotid ENDARTERECTOMY. CARDIAC CATH X2. BRONCHOSCOPY YEARS AGO. BMT. Colonscopies. left shoulder surgery, back surgery, RT Hip replacement Past Anesthesia/Blood Transfusion Reactions: No Reported Reaction Past Psychological History: No Psychological Hx Reported Smoking Status: Never smoker Past Alcohol Use History: Rare Additional Past Alcohol Use History / Comment(s): Quit Smoking 1995, Smoked 30 yrs, <1ppd Past Drug Use History: None Reported - Past Family History Father Family Medical History: Liver Disease Mother Family Medical History: CVA/TIA Brother(s) Family Medical History: Cancer, Deep Vein Thrombosis (DVT) Additional Family Medical History / Comment(s): 1/2 BROTHER Sister(s) Family Medical History: Cancer Additional Family Medical History / Comment(s): X2 SISTERS Medications and Allergies Home Medications Medication Instructions Recorded Confirmed Type Multivitamins, Thera [Multivitamin 1 tab PO DAILY 08/29/15 10/27/24 History (formulary)] allopurinoL [Zyloprim] 300 mg PO HS 02/25/20 10/27/24 History Donepezil [Aricept] 5 mg PO DAILY 08/12/24 10/27/24 History Empagliflozin [Jardiance] 25 mg PO DAILY 08/12/24 10/27/24 History Aspirin 81 mg PO BID #60 tab 08/15/24 10/27/24 Rx Omeprazole [PriLOSEC] 40 mg PO DAILY #30 cap 08/15/24 10/27/24 Rx Ondansetron [Zofran] 4 mg PO Q8HR PRN #20 tab 08/15/24 10/27/24 Rx Gabapentin [Neurontin] 100 mg PO BID 10/27/24 10/27/24 History Temazepam [Restoril] 15 mg PO HS PRN 10/27/24 10/27/24 History Umeclidinium Brm/Vilanterol Tr 1 puff INHALATION RT-DAILY 10/27/24 10/27/24 History [Anoro Ellipta 62.5-25 Mcg INH] atenoloL [Tenormin] 12.5 mg PO DAILY 10/27/24 10/27/24 History Allergies Allergy/AdvReac Type Severity Reaction Status Date / Time enoxaparin sodium Allergy Nausea & Verified 10/27/24 09:47 [From Lovenox] Vomiting & Diarrhea,muscle aches and pains lisinopril Allergy Unknown Verified 10/27/24 09:47 methocarbamol [From Robaxin] Allergy leg Verified 10/27/24 09:47 cramps,diarrhea warfarin sodium Allergy Nausea & Verified 10/27/24 09:47 [From Coumadin] Vomiting & Diarrhea,dehydration Cfwqrjb-RMX-KtP Reductase AdvReac Severe MUSCLE Verified 10/27/24 09:47 Inhibitor SPASMS IN [Btyvpba-Ncf-Tvc Reductase LEGS Inhibitor] losartan AdvReac congestion, Verified 10/27/24 09:47 headache meloxicam [From Mobic] AdvReac ELEV LIVER Verified 10/27/24 09:47 ENZYMES (AVOIDS "ARTHRITIC" RX) NSAIDS (Non-Steroidal AdvReac elevates Verified 10/27/24 09:47 Anti-Inflamma liver enzymes losartan Allergy congestion, Uncoded 10/27/24 09:47 headache Physical Examination Osteopathic Statement: *. No significant issues noted on an osteopathic structural exam other than those noted in the History and Physical/Consult. - L Spine: dermatomal strength & reflexes left Strength: hip flexion: 5/5 (Her legs has good strength with dorsiflexion plantarflexion EHL hip flexion knee extension. She does not have weakness at her lower extremities.) Strength: hip extension: 5/5 (No pain within her tolerable or external rotation of her hips. At her back she has pain at her thoracolumbar junction just at the paracentral area and it extends along her left inferior ribs) Strength: knee flexion: 5/5 (Her abdomen is soft. She lifts her legs up well. She has good strength in her lower extremities throughout. There is no tenderness at the midline at her upper back or lumbar spine. There are some tenderness at the thoracolumbar junction) Results CT scan is reviewed. It is compared to the prior imaging from August as well as old images. She has a pelvic hematoma on the left side There are evidence of compression fractures at L2 T12 T11 T10 T6 and T7 these were seen on prior films from July of this year. We can see some uptake on the bone scan currently. It does not appear to be acute new compression fractures compared to her prior bone scan from last year which showed obvious severe uptake at T12. - Labs Labs: Abnormal Lab Results - Last 24 Hours (Table) 10/29/24 10/29/24 Range/Units 05:31 05:31 RBC 3.75 L (4.10-5.20) 10*6/uL Hgb 10.4 L (12.0-15.0) g/dL Hct 33.2 L (37.2-46.3) % MCHC 31.3 L (32.0-37.0) g/dL Monocytes # 1.15 H (0.20-1.00) 10*3/uL Eosinophils # 0.60 H (0.04-0.35) 10*3/uL Sodium 136 L (137-145) mmol/L BUN 41 H (7-17) mg/dL H & H 10/27/24 10/28/24 10/29/24 Range/Units 05:15 05:34 05:31 Hgb 11.8 L 10.7 L 10.4 L (12.0-15.0) g/dL Hct 36.9 L 35.1 L 33.2 L (37.2-46.3) % Coagulation 10/28/24 Range/Units 08:49 INR 0.9 (<1.2) Result Diagrams: 10/29/24 05:31 10/29/24 05:31 Assessment and Plan Assessment: Left flank pain radiating toward her left abdomen Pelvic hematoma on the left Multiple compression deformities at L2 T12 T11 T10 T6 and T7 of variable age No evidence of new compression fracture at the lumbar spine No lower extremity radiculopathy or neurologic deficit Plan: Left flank pain radiating toward her left abdomen Pelvic hematoma on the left Multiple compression deformities at L2 T12 T11 T10 T6 and T7 of variable age No evidence of new compression fracture at the lumbar spine No lower extremity radiculopathy or neurologic deficit The patient is having severe pain at her left flank. It is difficult to determine the specific etiology. She had been doing well with her physical therapy as recently as last but has developed this severe pain over the past several days. She is not having troubles with urinary urination but she does have some mildly positive UA. She also has a significant pelvic hematoma which surgery is evaluating and monitoring. It is unclear at this point whether that is contributing to her symptoms. There are multiple compression deformities at her thoracic and lumbar spine. Many of these seem to be chronic in nature as there is no severe uptake on the bone scan. There are some marginal uptake at multiple levels and her prior imaging as far back as July 2023 shows multiple fractures at those levels. Her pain does not correlate well with many of those deformities but she does have some tenderness at her thoracolumbar junction. She has a LSO brace at home and she will have her son bring it so she can wear it whenever she is up out of bed. I think it is okay for the patient to mobilize with the LSO brace intact. And to have bathroom privileges without any bracing She is not on any regular pain medications and I think it is okay to start with some Toradol and potentially tramadol as she is able to tolerate for pain we will order these. We will have therapy work with her to try to mobilize and determine her comfort with ambulation. If she is not making progress we would consider possibility of further imaging with MRI but we will follow with conservative treatment to see if she makes any progress.. Will continue to follow her with you. Time with Patient: Greater than 30
--- NOTE | 2024-10-29 13:47 | P.PN ---
Subjective Progress Note Date: 10/29/24 SURGICAL PROGRESS NOTE CHIEF COMPLAINT: Abdominal pain HISTORY OF PRESENT ILLNESS: Patient continues to complain of pain under the left and right rib cage. She has more pain under the left rib cage again that radiates into the back. She reports pain in the left side of her back. She continues to complain of constipation. She complains of nausea. No bowel movement within MiraLAX. She is having flatus. She also reports some belching. Afebrile. WBC is down from 11-9 Hgb 10.4 Bone scan had reported uptake throughout the spine likely to degenerative and/or compression fracture bases. No significant uptake within the left pelvis near this possible hematoma and/or complex joint effusion which could be expected extending from the left hip. PHYSICAL EXAM: VITAL SIGNS: Reviewed. GENERAL: Well-developed in no acute distress. HEENT: No sclera icterus. Extraocular movements grossly intact. Moist buccal mucosa. Head is atraumatic, normocephalic. ABDOMEN: Soft. Nondistended. Tenderness with palpation under the left rib cage greater than the right rib cage. Tenderness to palpations of the left back NEUROLOGIC: Alert and oriented. Cranial nerves II through XII grossly intact. ASSESSMENT: 1. Abdominal pain under the left and right rib cage with left-sided back pain 2. Left hemipelvis hematoma 3. Constipation PLAN: - Lactulose x 1 for constipation. Continue MiraLAX - Continue pain management - Agree with consulting orthopedic service - No surgical intervention planned - Surgical service will sign off. Please call with any questions or concerns. Physician Wellness Coordinator note has been reviewed by physician. Signing provider agrees with the documented findings, assessment, and plan of care. I have personally seen and examined the patient, reviewed the [employer]UST[employer] MAINTENANCE TECH /PAs history, exam and MDM and agree with the assessment and plan as written. Based on total visit time, I have performed more than 50% of the visit. As above: Patient complaining of mild nausea. Has been tolerating diet well. Orthopedic evaluation and bone scan noted. Etiology for abdominal and back discomfort unclear. Possibly related to chronic back issues. No surgical intervention or further diagnostics planned at this time. Follow-up as outpatient. Will sign off. Please call if needed. Objective - Vital Signs Vital signs: Vital Signs Temp 98.7 F 10/29/24 09:05 Pulse 76 10/29/24 09:05 Resp 16 10/29/24 09:05 BP 160/68 10/29/24 09:05 Pulse Ox 96 10/29/24 09:05 FiO2 Intake & Output 10/28/24 10/29/24 10/29/24 18:59 06:59 18:59 Intake Total 875 Balance 875 Intake: Oral 875 Other: Voiding Method Toilet Toilet Toilet # Voids 2 1 1 # Bowel Movements 1 - Labs CBC & Chem 7: 10/29/24 05:31 10/29/24 05:31 Labs: Abnormal Lab Results - Last 24 Hours (Table) 10/29/24 10/29/24 Range/Units 05:31 05:31 RBC 3.75 L (4.10-5.20) 10*6/uL Hgb 10.4 L (12.0-15.0) g/dL Hct 33.2 L (37.2-46.3) % MCHC 31.3 L (32.0-37.0) g/dL Monocytes # 1.15 H (0.20-1.00) 10*3/uL Eosinophils # 0.60 H (0.04-0.35) 10*3/uL Sodium 136 L (137-145) mmol/L BUN 41 H (7-17) mg/dL
[2024-10-29 14:25] LABS: Appearance,Urine Clear (Clear); Bilirubin,Urine Negative (Negative); Blood,Urine Trace (Negative); Color,Urine Yellow; Glucose,Urine (UA) 4+ (Negative); Ketones,Urine Negative (Negative); Leukocyte Esterase,Urine Negative (Negative); Mucus,Urine Rare /hpf; Nitrite,Urine Negative (Negative); Protein,Urine Negative (Negative); RBC,Urine 4 /hpf (0-5); Specific Gravity,Urine 1.017 (1.001-1.035); Squamous Epithelial Cell,Urine 1 /hpf (0-4); Urobilinogen,Urine <2.0 mg/dL (<2.0); WBC,Urine 4 /hpf (0-5)
--- NOTE | 2024-10-29 15:24 | XR ---
EXAMINATION TYPE: XR chest 1V portable DATE OF EXAM: 10/29/2024 2:40 PM COMPARISON: Chest radiographs from 10/25/2024. CLINICAL INDICATION: Female, 84 years old with history of shortness of breath; [facility] TECHNIQUE: XR chest 1V portable Frontal view of the chest. FINDINGS: Lungs/Pleura: There is no evidence of pleural effusion, focal consolidation, or pneumothorax. Pulmonary vascularity: Unremarkable. Heart/mediastinum: Cardiomediastinal silhouette is unremarkable. Musculoskeletal: No acute osseous pathology. Left shoulder arthroplasty appears intact. IMPRESSION: Similar, Cardiomegaly and mild pulmonary vascular congestion. Correlate with BNP for congestive heart failure. [facility], , 10/29/2024 3:21 PM
--- NOTE | 2024-10-29 16:30 | PN ---
PROGRESS NOTE DATE OF SERVICE: 10/29/2024 SUBJECTIVE: This is an 84-year-old woman, is admitted with abdominal pain and pelvic hematoma. The patient also complaining of back pain. The patient also had recent orthopedic surgery. Orthopedics is following the patient closely. A bone scan did not show any acute abnormality. PAST MEDICAL HISTORY: Reviewed. REVIEW OF SYSTEMS: A 14-point review of systems negative except as mentioned earlier. CURRENT MEDICATIONS: Reviewed. PHYSICAL EXAMINATION: VITAL SIGNS: Pulse is 76, blood pressure 160/60, and respirations 16. CHEST: Few scattered rhonchi. ABDOMEN: Soft. NERVOUS SYSTEM: Nonfocal. LABORATORY DATA: Reviewed. ASSESSMENT: 1. Severe left-sided abdominal pain with left-sided pelvic hematoma, possibly hematoma, rule out. A bone scan is showing no acute changes. 2. Degenerative joint disease and the right hip arthroplasty recently. 3. Back pain and degenerative joint disease. 4. Hypertension. 5. Hyperlipidemia. 6. History of skin cancer. 7. Multiple complex medical issues. RECOMMENDATIONS: Recommend to continue current management and continue symptomatic treatment. Otherwise I would recommend repeat CT scan of the abdomen and pelvis, because of the persistence of the pain. Closely follow with Orthopedic Surgery, and I would recommend repeat labs. Symptomatic treatment for the pain. Guarded prognosis. Further recommendations to follow. Once again, exact etiology of the hematoma is unknown at this time, I recommend to avoid antiplatelet agents at this time. The coag parameters are negative. The prognosis extremely guarded. Further recommendations to follow. MMODL / IJN: [id number] /
--- NOTE | 2024-10-30 08:06 | P.PN ---
Progress Note - Text Progress Note Date: 10/30/24 Patient is seen and examined at bedside. She just walked down the spears by herself and felt comfortable with it. She is feeling much better today. She says her pain is significantly improved. She still has some pain around her inferior left ribs but she is happy that she is making progress. She is afebrile stable vital signs Her chest has good expiration and inspiration Her abdomen is soft but she does have tenderness around her left flank with palpation and her left paraspinals Neurologically she is intact to the bilateral lower extremities with good strength Assessment and plan Left flank pain improving History of multiple compression deformities of various ages exacerbation of back pain Left pelvic hematoma Constipation The patient's back and flank pain seems to be improving well with medication. She has become much more mobile between yesterday and today and is happy with this. She continues to have some pain at the area but we do not have any acute plans for surgical intervention for her. With her multiple compression deformities it is difficult to determine if there is one acute spot that is causing her specific symptoms. She does not appear to have significant vertebral acute collapse or neurologic compromise and I think that we can treat her conservatively. She has a TLSO brace and an LSO brace with her at bedside. Either 1 of these would be okay for her to wear when she is up and around. She does not need to use the brace while in bed or for bathro om. She has not yet had a bowel movement and feels quite constipated. Medicine and surgery are managing this. From a orthopedic spine standpoint it is okay for her to discharge when she is stable and cleared with medicine to follow-up with our office in 1 to 2 weeks for recheck evaluation.
[2024-10-30 08:38] LABS: BUN/Creat Ratio 27.27 Ratio (12.00-20.00); Carbon Dioxide 27.1 mmol/L (21.6-31.8); Chloride 105 mmol/L (96-109); Glucose 75 mg/dL (70-110); Potassium 3.9 mmol/L (3.5-5.5); Sodium 143 mmol/L (135-145)
[2024-10-30 08:53] LABS: Basophils # (A) 0.06 X 10*3/uL (0.00-0.10); Basophils % (A) 0.5 %; Eosinophils # (A) 0.35 X 10*3/uL (0.04-0.35); Eosinophils % (A) 3.1 %; HCT 32.8 % (37.2-46.3); HGB 10.1 g/dL (12.0-15.0); Lymphocytes # (A) 3.65 X 10*3/uL (0.90-5.00); Lymphocytes % (A) 32.4 %; MCH 27.6 pg (27.0-32.0); MCHC 30.8 g/dL (32.0-37.0); MCV 89.6 FL (80.0-97.0); Mean Platelet Volume 11.5 FL (9.5-12.2); Monocytes # (A) 1.48 X 10*3/uL (0.20-1.00); Monocytes % (A) 13.1 %; NRBC Per 100 WBC 0 X 10*3/uL (0.00-0.01); Neutrophils # (A) 5.69 X 10*3/uL (1.80-7.70); Neutrophils % (A) 50.6 %; Platelet Count 292 X 10*3/uL (140-440); RBC 3.66 X 10*6/uL (4.10-5.20); RDW 15.2 % (11.5-14.5); WBC 11.26 X 10*3/uL (4.50-10.00)
[2024-10-30] MEDS: SENNOSIDES 8.6 MG TAB PO SCH (16:06)
[2024-10-30] MEDS: MAGNESIUM HYDROXIDE 2,400 MG/30 ML CUP PO PRN (16:46)
[2024-10-30] MEDS: NA PHOS,M-B/NA PHOS,DI-BA 133 ML ENEMA RECTAL ONE (16:47)
[2024-10-31 10:24] VITALS: PULSE 67; RESP 16
[2024-10-31 12:12] LABS: Basophils # (A) 0.06 10*3/uL (0.00-0.10); Basophils % (A) 0.7 %; Eosinophils % (A) 4.5 %; HCT 32.6 % (37.2-46.3); Lymphocytes # (A) 2.26 10*3/uL (0.90-5.00); Lymphocytes % (A) 25.3 %; MCH 27.6 pg (27.0-32.0); MCHC 30.7 g/dL (32.0-37.0); MCV 90.1 fL (80.0-97.0); Mean Platelet Volume 9.7 fL (9.5-12.2); Monocytes # (A) 1.31 10*3/uL (0.20-1.00); Monocytes % (A) 14.7 %; Neutrophils # (A) 4.88 10*3/uL (1.80-7.70); Neutrophils % (A) 54.6 %; Platelet Count 281 10*3/uL (140-440); RBC 3.62 10*6/uL (4.10-5.20); RDW 15.3 % (11.5-14.5); WBC 8.93 10*3/uL (4.50-10.00)
[2024-10-31 15:37] VITALS: BP 104/63; TEMP 98
[2024-11-01 01:24] LABS: BUN/Creat Ratio 22.09 Ratio (12.00-20.00); Blood Urea Nitrogen 24.3 mg/dL (9.0-27.0); Calcium 8.8 mg/dL (8.7-10.3); Carbon Dioxide 28.4 mmol/L (21.6-31.8); Chloride 106 mmol/L (96-109); Glucose 141 mg/dL (70-110); Potassium 4.1 mmol/L (3.5-5.5); Sodium 142 mmol/L (135-145)
== END 2024-10-31 17:31 | disposition home or self-care (01) | DRG 556 ==
LOC: EC 04:41 → 1SOBS 08:30 → OBSVTOIN 08:30 → 4SSUR 10-29 16:31
PROVIDERS: ADMIT Hospitalist; ATTEND Hospitalist
DX: M79.81 Nontraumatic hematoma of soft tissue (principal); M48.56XA Collapsed vertebra, not elsewhere classified, lumbar region, initial encounter for fracture; I10 Essential (primary) hypertension; E78.5 Hyperlipidemia, unspecified; R10.9 Unspecified abdominal pain; K59.00 Constipation, unspecified; M19.90 Unspecified osteoarthritis, unspecified site; N94.89 Other specified conditions associated with female genital organs and menstrual cycle; Z85.828 Personal history of other malignant neoplasm of skin; Z79.84 Long term (current) use of oral hypoglycemic drugs; Z79.82 Long term (current) use of aspirin; Z79.899 Other long term (current) drug therapy; Z86.73 Personal history of transient ischemic attack (TIA), and cerebral infarction without residual deficits; Z87.01 Personal history of pneumonia (recurrent); Z90.710 Acquired absence of both cervix and uterus; Z96.643 Presence of artificial hip joint, bilateral; Z88.8 Allergy status to other drugs, medicaments and biological substances; Z87.891 Personal history of nicotine dependence; Z96.652 Presence of left artificial knee joint
CPT/HCPCS: 36415; 71045; 74176; 78306; 80048; 80053; 81001; 82150; 83605; 83690; 85025; 85610; 85652; 85730; 86140; 94640; 96374; 96375; 99285

== ENCOUNTER → 2024-12-11 | Outpatient (CLI) | payer MEDICARE ==
--- NOTE | 2024-12-12 08:04 | MR ---
INDICATION: Patient age:Female; 84 years old; Reason for study: M54.6 PAIN IN THORACIC SPINE M51.9; H. COMPARISON: CT abdomen and pelvis 10/27/2024, lumbar spine radiograph 03/04/2024, 02/19/2024, CT abdome n and pelvis 10/27/2024, 08/22/2024, nuclear medicine bone scan 10/28/2024, 04/21/2024. TECHNIQUE: Multi planar, multi sequence imaging was performed of the thoracolumbar spine. The patie nt was given 5.5 cc of Gadobutrol intravenously and postcontrast imaging was performed utilizing T1 w eighted fat saturation in both the sagittal and axial planes. FINDINGS: Acute compression deformity with increased STIR signal involving the T9 vertebral body with contrast enhancement. Approximately 50% height loss and no retropulsion. Approximately 40% height loss. No re tropulsion. Remote compression deformities of the thoracic spine including T8 vertebral body with scott roximately 20% height loss and 2 mm retropulsion, T11 vertebral body with approximately 20% height lo ss centrally with no retropulsion. Levoscoliotic curvature of the thoracic spine with apex at T5-T6. Thoracic spinal cord appears unremarkable. There is no evidence of extradural defects or central spin al canal narrowing at any thoracic vertebral body level. Multilevel disc desiccation. Reversal of the normal cervical lordosis with grade 1 anterolisthesis of C4 on C5. Grade 1 retrolisth esis of C5 on C6 and C6 on C7. Multilevel moderate degenerative disc disease of the cervical spine. N o visualized disc herniation or high-grade spinal canal stenosis on sagittal view. Cardiomegaly. FINDINGS: Alignment: Grade 1 retrolisthesis of L1 on L2, L2 on L3, L3 on L4, and L4 and L5. Minimal S-shaped sc oliotic curvature of the lumbar spine. Cord: The conus medullaris and the distal spinal cord appear unremarkable with regards to their signa l intensity and morphology. Bones/Discs: Subacute appearing anterior wedge compression deformity of the L1 vertebral body with ap proximately 50% height loss and no retropulsion. There is some increased STIR signal with contrast en hancement. Type I Modic changes involving the endplates around the L3-L4 and L4-L5 discs with contras t enhancement. Multilevel disc desiccation is present. Lumbarization of the S1 vertebral body. L1-L2: Broad-based disc bulge with ligamentum flavum buckling and bilateral facet arthropathy. Mild s luis felipe canal stenosis. Mild bilateral neural foraminal stenosis. L2-L3: Broad-based disc bulge with ligamentum flavum buckling and bilateral facet uropathy. Mild spin al canal stenosis. Moderate left and mild right neural foraminal stenosis. L3-L4: Diffuse disc bulge with ligamentum flavum buckling and bilateral facet arthropathy. Resultant mild spinal canal stenosis. Moderate to severe left and moderate right neural foraminal stenosis. L4-L5: Diffuse disc bulge with ligamentum flavum buckling and bilateral facet arthropathy. Resultant mild to moderate spinal canal stenosis. Moderate severe left and mild right neural foraminal stenosis . L5-S1: Diffuse disc bulge with ligamentum flavum buckling and bilateral facet arthropathy. Results in mild to moderate spinal canal stenosis. Moderate to severe right and mild left neural foraminal sten osis. Other findings: Couple of left renal T2 hyperintense cysts with largest measuring up to 1.7 cm. IMPRESSION: 1. Acute appearing T9 compression deformity with approximately 50% height loss and no retropulsion. S ubacute appearing anterior wedge compression deformity of the L1 vertebral body with approximately 50 % height loss and no retropulsion. Remote compression deformities of the T8 and T11 vertebral bodies. 2. 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 Additional degenerative disc disease of th e visualized cervical spine. 3. Levoscoliotic curvature of the thoracic spine. Grade 1 retrolisthesis of L1 on L2, L2 on L3, L3 on L4, and L4 and L5. Minimal S-shaped scoliotic curvature of the lumbar spine. [facility], , 12/12/2024 8:02 AM
== END | disposition home or self-care (01) ==
LOC: RADMRIMAIN 21:00
PROVIDERS: ATTEND Psychiatry & Neurology Neurology
DX: M51.9 Unspecified thoracic, thoracolumbar and lumbosacral intervertebral disc disorder (principal); M48.54XA Collapsed vertebra, not elsewhere classified, thoracic region, initial encounter for fracture; M48.56XA Collapsed vertebra, not elsewhere classified, lumbar region, initial encounter for fracture; M50.30 Other cervical disc degeneration, unspecified cervical region; M43.16 Spondylolisthesis, lumbar region; M41.86 Other forms of scoliosis, lumbar region
CPT/HCPCS: 72157; 72158; A9585